=== PATIENT | female | born 1955 | race Caucasian/White ===

== ENCOUNTER 2019-10-16 11:25 | Outpatient (CLI) | payer MEDICARE, SELFPAY ==
[2019-10-16 11:51] LABS: Basophils % 0.6 %; Eosinophils % 0.6 %; Hematocrit 32.2 % (37.0-47.0); Hemoglobin 10.2 g/dL (11.5-15.3); Lymphocytes # 1.1 10^3/uL (0.8-4.8); Lymphocytes % 20.7 %; Mean Corpuscular HGB Conc 31.7 g/dL (30.0-36.0); Mean Corpuscular Hemoglobin 26.9 pg (28.0-34.0); Mean Platelet Volume 10.7 fL (7.4-10.4); Monocytes # 0.3 10^3/uL (0.2-0.9); Monocytes % 6.3 %; Neutrophils # 3.8 10^3/uL (1.8-7.7); Neutrophils % 71.6 %; Nucleated Red Blood Cells % 0 %; Platelet Count 360 10^3/cmm (130-400); Red Blood Count 3.79 10^6/uL (4.1-5.3); Red Cell Distribution Width 15.6 % (12.1-15.1); White Blood Count 5.2 10^3/uL (4.0-10.0)
[2019-10-16 12:13] LABS: Carcinoembryonic Antigen 2.7 ng/mL (0.0-4.7)
[2019-10-16 12:24] LABS: Alanine Aminotransferase 9 U/L (0-33); Albumin Level 4.5 g/dL (3.5-5.2); Alkaline Phosphatase 72 IU/L (35-105); Anion Gap 22.8 (5-19); Aspartate Amino Transferase 16 U/L (0-32); Blood Urea Nitrogen 9 mg/dL (8-23); Calcium 9.7 mg/Dl (8.8-10.2); Carbon Dioxide 20 mmol/L (22-29); Chloride 96 mmol/L (98-107); Glomerular Filtration Rate 123.8 mL/min (90-130); Glucose 109 mg/dL (74-106); Potassium 3.8 mmol/L (3.5-5.1); Sodium 135 mmol/L (136-145); Total Bilirubin 0.3 mg/dL (0.15-1.2); Total Protein 7.5 g/dL (6.6-8.7)
--- NOTE | 2019-10-16 14:17 | ONC FU_ITS ---
Dr. Bingham follow up note Patient: Conchis Vickers Unit #: [id number]: 1955 Dicatated By: Sri Bingham M.D.Date of Visit:Oct 16, 2019 Onc Med Follow-up/Prog Note History of Present Illness: Mrs. Conchis Francis, is a 64-year-old female who underwent EGD colonoscopy on 06/03/2019 for anemia and occult blood seen stools. EGD was normal but colonoscopy showed mass involving one third of the circumference of ileocecal valve and biopsy was obtained it showed adenocarcinoma and CT scan of abdomen pelvis was done on 06/09/2019 which showed cecum appears distended no hepatic lesion seen no mesenteric or pelvic lymphadenopathy. Patient underwent right hemicolectomy and it showed adenocarcinoma, low-grade, 4.2 x 2.6 x 1.1 cm mass focally penetrating muscularis propria into serosal connective tissues. Margins were clear, T3, 0 out of 16 lymph nodes positive for metastatic disease. No lymphovascular or venous involvement. MSI MMR status was intact. Patient tolerated procedure well. Now recovering well. On oral iron one tablet every other day since June 2019. Tolerating well.Patient stopped taking oral iron in August 2019, as she was feeling better. Came for follow-up, denies any specific complaints, no melena or hematochezia, no nausea or vomiting, no jaundice, no hemoptysis or hematemesis, no shortness of breath or palpitation, ] Medications: Levothyroxine Sodium 1.5 Tablet (of 25 mcg) Oral daily, Prevacid 1 Capsule (of 15 mg) Capsule Delayed Release Oral daily, Telmisartan 0.5 Tablet (of 40 mg) Oral daily, traZODone HCl 1 Tablet (of 100 mg) Oral at bedtime Allergies: No Known Allergies. Review of Systems: Review of Systems is not available for this patient. Vital Signs: Performed on Oct 16, 2019 13:48 Height - 70.50 in Weight - 167.2 lbs (HIGH) BSA - 1.94 sq.m BMI - 23.65 Temperature - 98.4 F Pulse - 90 /min Respiration - 18 /min BP - 124/78 mm(hg) O2 Sat - 98 % Pain - 0 Performance Status: 0 - Fully active, able to carry on all predisease activities without restrictions. (ECOG) Physical Examination: ENMT - No oral exudates, ulcers, masses, thrush or mucositis. Oropharynx clear. Tongue normal, Respiratory - Lungs are clear to auscultation without rhonchi or wheezing, Cardiovascular - Regular rate and rhythm of heart, Abdomen - Non-tender, non-distended,Good bowel sounds. No guarding or rebound tenderness. No pulsatile masses, Extremities - no edema. Lab/Imaging: Test performed on Oct 16, 2019 11:36 Glucose 109 mg/dL BUN 9 mg/dL Creatinine 0.5 mg/dL Cr Clearance (Est) 134.3000 mL/min (Preliminary) Sodium 135 mmol/L Potassium 3.8 mmol/L Chloride 96 mmol/L CO2 20 mmol/L Calcium 9.7 mg/dL Protein, Total 7.5 g/dL Albumin 4.5 g/dL Globulin 3.0 g/dL Bilirubin, Total 0.3 mg/dL Alkaline Phosphatase 72 IU/L AST (SGOT) 16 IU/L ALT (SGPT) 9 IU/L WBC 5.2 10^9/L RBC 3.79 10^12/L HGB 10.2 g/dL HCT 32.2 % MCV 85.0 fl MCH 26.9 pg MCHC 31.7 g/dL RDW 15.6 % Platelet Count 360 10^9/L MPV 10.7 fL Neutrophils (Gran) 3.8 10^9/L Lymphocytes 1.1 10^9/L Monocytes 0.3 10^9/L Eosinophils 0.0 10^9/L Basophils 0.0 10^9/L Manual Lymphocytes 20.7 % Manual Monocytes 6.3 % Manual Eosinophils 0.6 % Manual Basophils 0.6 % NRBCs 0.0 /100 WBC CEA 2.7 ng/mL Test performed on Jul 25, 2019 09:24 Ferritin 14.0 ng/ml Iron 32 ug/dL % Iron Saturation 9.9 % UIBC 291 ug/dL Neutrophil % 64.7 % Lymphocyte % 27.0 % Monocyte % 6.5 % Eosinophil % 1.2 % Basophils % 0.6 % 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 done on 06/16/2019 final pathology report showed 4.2 x 2.6 x 1.1 cm tumor penetrating muscularis propria into serosal connective tissues, with clear surgical margins, T3 0 out of 16 lymph nodes positive for metastatic disease, N0 No lymphovascular or venous invasion seen MMR/MSI intact Iron deficiency anemia tried oral iron Plan: Discussed with patient regarding her labs white blood count 5.2 hemoglobin 10.2 crit 32.2 platelets 360,000 CMP within normal limits CEA 2.7, anemia workup done on our previous visit showed iron was 9.9 ferritin was 14 TIBC was 291 Clinically, patient is doing well, no new signs symptoms suggestive of recurrence of disease. Her follow-up CBC shows persistent rather progressive anemia but well compensated as patient has no shortness of breath or palpitation on exertion. Patient was on oral iron earlier but then quit taking in August 2019 on her own as she started feeling better that time. Because of her progressive anemia and history of iron deficiency anemia patient was advised start taking oral iron again and will repeat her CBC and iron studies in a month if it shows improvement, will continue with same otherwise we'll try parenteral iron as she will have iron malabsorption as oral iron did not improve her hemoglobin. Signed By: Sri Bingham M.D. <<Signature on File>>
== END 2019-10-16 11:26 | disposition home or self-care (01) ==
LOC: ONCMED 11:30
PROVIDERS: Family Provider Internal Medicine; PCP Internal Medicine; Visit Provider Internal Medicine Hematology & Oncology
DX: Z08 Encounter for follow-up examination after completed treatment for malignant neoplasm (principal); Z85.038 Personal history of other malignant neoplasm of large intestine; D50.9 Iron deficiency anemia, unspecified; Z79.899 Other long term (current) drug therapy; Z79.891 Long term (current) use of opiate analgesic; Z90.49 Acquired absence of other specified parts of digestive tract
CPT/HCPCS: 36415; 80053; 82378; 85025; G0463

== ENCOUNTER 2019-11-20 21:44 | Emergency (ER) | payer MEDICARE, SELFPAY ==
[2019-11-20 22:14] VITALS: BP 163/91; PULSE 85; RESP 18; O2SAT 100; BMI 23.6
--- NOTE | 2019-11-20 22:26 | W.ED.DIZZY ---
HPI - Dizziness General: Chief Complaint: Dizziness Stated Complaint: FEELING WOOZY Time Seen by Provider: 11/20/19 22:26 Source: patient Mode of arrival: ambulatory Limitations: no limitations History of Present Illness: HPI Narrative: Patient comes in today with 2-day history of feeling woozy. Patient appears well. Patient appears in no pain. Patient denies any chest pain or headache. Associated neuro symptoms: Reports confusion Review of Systems General: Reports: 10 or more systems reviewed and unremarkable except in HPI and below Neuro: Reports: confusion PFSH ED PFSH: Social History Smoking and tobacco status: never smoked Physical Exam Const: COMMON NORMALS: no apparent distress and oriented x3 GENERAL APPEARANCE: cooperative HENMT: COMMON NORMALS: normocephalic, external ears normal, EAC's normal, TM's normal bilaterally and external nose normal HEAD & SCALP: normal to inspection and normocephalic FACE & SINUS: normal facial exam NOSE: external nose normal GENERAL EAR: hearing not grossly impaired EXTERNAL EAR: Yes external ears normal EXTERNAL AUDITORY CANAL: EAC's normal TYMPANIC MEMBRANE: TM's normal bilaterally MOUTH: oral and palatal mucosa normal THROAT: posterior oropharynx normal Eye: COMMON NORMALS: PERRL and EOMs intact bilaterally PUPIL: Yes PERRL Neck/C-Spine: COMMON NORMALS: full ROM and no lymphadenopathy Lymph: LYMPHATIC: no lymphedema noted Chest: COMMONS NORMALS: inspection of chest normal and palpation of chest normal Resp: COMMON NORMALS: normal respiratory effort and clear to auscultation bilaterally AUSCULTATION: clear to auscultation bilaterally Cardio: COMMON NORMALS: regular rate and regular rhythm RATE: regular rate RHYTHM: regular rhythm GI: COMMON NORMALS: normal to inspection, nondistended, normoactive bowel sounds and non-tender : COMMON NORMALS: Yes no CVA tenderness BLADDER/KIDNEY EXAM: Yes no CVA tenderness Back/Pelvis: COMMON NORMALS: no CVA tenderness and thoracic and lumbar spine normal to inspection Extremity: COMMON NORMALS: normal to inspection GENERAL: No edema Neuro: COMMON NORMALS: oriented x3, moves all extremities and no focal motor deficits Psych: COMMON NORMALS: mental status grossly normal and cooperative Skin: COMMON NORMALS: no rashes or lesions noted GENERAL SKIN EXAM: no rashes or lesions noted Course Vital Signs: Vital signs: Vital Signs Pulse Rate 85 11/20/19 22:14 Respiratory Rate 18 11/20/19 22:14 Blood Pressure 163/91 11/20/19 22:14 Pulse Oximetry 100 11/20/19 22:14 MDM - Dizziness MDM Narrative: Medical decision making narrative: Patient comes in today with complaints of lightheadedness. On exam patient has no focal neural deficits. Skin is warm and dry color is pink. Respirations are even lungs are clear to auscultation. Abdomen soft nontender. Differential diagnosis includes electrolyte disturbance, arrhythmia, ACS, urinary tract infection, anemia. Laboratory values noted a stable anemia at 10 and 31, sodium was 126 which was down from 133 1 month ago. EKG was normal sinus rhythm. Reviewed exam with patient recommended treatment for hyponatremia. Review of medical record noted that patient was on trazodone, telmisartan, and levothyroxine. Patient denied any alcohol use. Review of adverse reactions trazodone is implicated with hyponatremia and SIADH. Recommend patient stop trazodone. Patient was given 1 L of IV fluid. Reviewed with Dr. Finley who agreed with plan and need for follow-up next week with primary care for repeat evaluation of sodium. Reviewed with patient for return to the ER for worsening symptoms. Patient reported understanding agreed to plan. Patient did request medication to help her sleep although she was wary on other medications to use. We will try 50 mg of temazepam for her sleeplessness with following up with primary care for other options to assist with her insomnia. Lab Data: Labs: Lab Results 11/20/19 11/20/19 Range/Units 22:30 22:30 WBC 5.0 (4.0-10.0) 10^3/ uL RBC 3.72 L (4.1-5.3) 10^6/u L Hgb 10.2 L (11.5-15.3) g/dL Hct 31.3 L (37.0-47.0) % MCV 84.1 (81-99) fL MCH 27.4 L (28.0-34.0) pg MCHC 32.6 (30.0-36.0) g/dL RDW 16.7 H (12.1-15.1) % Plt Count 316 (130-400) 10^3/c mm MPV 10.4 (7.4-10.4) fL Neut % (Auto) 64.2 % Lymph % (Auto) 25.4 % [place] % (Auto) 7.4 % Eos % (Auto) 2.0 % Baso % (Auto) 0.6 % Neut # (Auto) 3.2 (1.8-7.7) 10^3/u L Lymph # (Auto) 1.3 (0.8-4.8) 10^3/u L [place] # (Auto) 0.4 (0.2-0.9) 10^3/u L Eos # (Auto) 0.1 (0.0-0.8) 10^3/u L Baso # (Auto) 0.0 (0.0-0.1) 10^3/u L Nucleated RBC % (a uto) 0 % Nucleated RBCs # 0.0 /100WBC Sodium 126 L (136-145) mmol/L Potassium 3.5 (3.5-5.1) mmol/L Chloride 88 L (98-107) mmol/L Carbon Dioxide 22 (22-29) mmol/L Anion Gap 19.5 H (5-19) BUN 16 (8-23) mg/dL Creatinine 0.6 (0.5-0.9) mg/dL GFR Calculation 100.3 (90-130) mL/min Glucose 104 (65-115) mg/dL Calcium 9.8 (8.5-10.5) mg/dL Total Bilirubin 0.2 (0.15-1.2) mg/dL AST 15 (0-32) U/L ALT 9 (0-33) U/L Alkaline Phosphata se 66 (35-105) IU/L Total Protein 7.5 (6.6-8.7) g/dL Albumin 4.0 (3.5-5.2) g/dL Globulin 3.5 (1.3-4.6) g/dL Discharge Plan Discharge Patient Disposition: Home, Self-Care Clinical Impression: Hyponatremia Condition: Stable Prescriptions: New temazepam 15 mg capsule 15 mg PO ONCE PRN (Reason: sleep) Qty: 7 RF: 0 No Action Unable to Assess RF: 0 Discharge Orders: Discharge Order (Routine); Ordered 11/21/19 Ordered By: Carlos Clemons Referrals: MELCHOR MCCORD DO [Primary Care Provider] - Discharge Diet: Usual diet Discharge Activity: Resume usual activity Patient Instructions: Hyponatremia (ED) Activity Restrictions/Additional Instructions: Limit all fluid intake to 2 liters a day Stop trazadone Medications as directed For sleep Follow-up with primary care for further treatment and other options for sleep Return to ER for worsening symptoms or new concerns Coding Level of Care Code ED Front Office Administrator for Juni Fwbecka Exam Comprehensive
--- NOTE | 2019-11-20 22:27 | ECG_ITS ---
Measurements Intervals [place] Rate: 77 P: 52 WV: 176 QRS: 77 QRSD: 96 T: 46 QT: 398 QTc: 452 SINUS RHYTHM Compared to ECG 05/21/2019 18:34:22 ST (T wave) deviation no longer present Electronically Signed On 11-21-2019 14:13:05 CLAIMS SERVICE ADJUSTOR by Terrance Moyer M.D. [id number]
[2019-11-20 22:45] LABS: Basophils % 0.6 %; Eosinophils # 0.1 10^3/uL (0.0-0.8); Hematocrit 31.3 % (37.0-47.0); Hemoglobin 10.2 g/dL (11.5-15.3); Lymphocytes # 1.3 10^3/uL (0.8-4.8); Lymphocytes % 25.4 %; Mean Corpuscular HGB Conc 32.6 g/dL (30.0-36.0); Mean Corpuscular Hemoglobin 27.4 pg (28.0-34.0); Mean Corpuscular Volume 84.1 fL (81-99); Mean Platelet Volume 10.4 fL (7.4-10.4); Monocytes # 0.4 10^3/uL (0.2-0.9); Monocytes % 7.4 %; Neutrophils # 3.2 10^3/uL (1.8-7.7); Neutrophils % 64.2 %; Nucleated Red Blood Cells % 0 %; Platelet Count 316 10^3/cmm (130-400); Red Blood Count 3.72 10^6/uL (4.1-5.3); Red Cell Distribution Width 16.7 % (12.1-15.1)
[2019-11-20 22:58] LABS: Alanine Aminotransferase 9 U/L (0-33); Alkaline Phosphatase 66 IU/L (35-105); Anion Gap 19.5 (5-19); Aspartate Amino Transferase 15 U/L (0-32); Blood Urea Nitrogen 16 mg/dL (8-23); Calcium 9.8 mg/dL (8.5-10.5); Carbon Dioxide 22 mmol/L (22-29); Chloride 88 mmol/L (98-107); Globulin 3.5 g/dL (1.3-4.6); Glomerular Filtration Rate 100.3 mL/min (90-130); Glucose 104 mg/dL (65-115); Potassium 3.5 mmol/L (3.5-5.1); Sodium 126 mmol/L (136-145); Total Bilirubin 0.2 mg/dL (0.15-1.2); Total Protein 7.5 g/dL (6.6-8.7)
[2019-11-20] MEDS: sodium chloride 0.9% 1,000 ML 999 ML IV (23:36)
[2019-11-21 00:40] VITALS: BP 153/87; PULSE 79; RESP 16; O2SAT 100
== END 2019-11-21 00:49 | disposition home or self-care (01) ==
PROVIDERS: Emergency Provider Nurse Practitioner Family; Family Provider Internal Medicine; PCP Internal Medicine
DX: E87.1 Hypo-osmolality and hyponatremia (principal)
CPT/HCPCS: 80053; 85025; 93005; 96360; 99282; 99283; J7030

== ENCOUNTER 2019-12-02 11:13 | Outpatient (CLI) | payer MEDICARE, SELFPAY ==
[2019-12-02 11:36] LABS: Basophils % 0.7 %; Eosinophils % 0.7 %; Hematocrit 35.8 % (37.0-47.0); Hemoglobin 11.2 g/dL (11.5-15.3); Lymphocytes # 1.4 10^3/uL (0.8-4.8); Mean Corpuscular HGB Conc 31.3 g/dL (30.0-36.0); Mean Corpuscular Hemoglobin 27.7 pg (28.0-34.0); Mean Corpuscular Volume 88.6 fL (81-99); Mean Platelet Volume 10.9 fL (7.4-10.4); Monocytes # 0.3 10^3/uL (0.2-0.9); Monocytes % 5.8 %; Neutrophils # 3.9 10^3/uL (1.8-7.7); Neutrophils % 68.6 %; Nucleated Red Blood Cells % 0 %; Platelet Count 351 10^3/cmm (130-400); Red Blood Count 4.04 10^6/uL (4.1-5.3); Red Cell Distribution Width 16.8 % (12.1-15.1); White Blood Count 5.7 10^3/uL (4.0-10.0)
[2019-12-02 12:46] LABS: Ferritin 20 ng/mL (15-150); Iron 83 ug/dL (37-145); Percent Saturation 26.7 % (20-50); Total Iron Binding Capacity 310 mcg/dl; Unsaturated Iron Binding 227 ug/dL (112-347)
== END 2019-12-02 11:14 | disposition home or self-care (01) ==
LOC: ONCMED 11:13
PROVIDERS: Family Provider Internal Medicine; PCP Internal Medicine; Visit Provider Internal Medicine Hematology & Oncology
DX: C18.2 Malignant neoplasm of ascending colon (principal)
CPT/HCPCS: 82728; 83540; 83550; 85025

== ENCOUNTER 2019-12-03 09:13 | Outpatient (CLI) | payer MEDICARE, SELFPAY ==
--- NOTE | 2019-12-03 14:09 | ONC FU_ITS ---
Dr. Bingham follow up note Patient: Conchis Vickesr Unit #: [id number]: 1955 Dicatated By: Sri Bingham M.D.Date of Visit:Dec 03, 2019 Onc Med Follow-up/Prog Note History of Present Illness: Mrs. Conchis Francis, is a 64-year-old female who underwent EGD colonoscopy on 06/03/2019 for anemia and occult blood seen stools. EGD was normal but colonoscopy showed mass involving one third of the circumference of ileocecal valve and biopsy was obtained it showed adenocarcinoma and CT scan of abdomen pelvis was done on 06/09/2019 which showed cecum appears distended no hepatic lesion seen no mesenteric or pelvic lymphadenopathy. Patient underwent right hemicolectomy and it showed adenocarcinoma, low-grade, 4.2 x 2.6 x 1.1 cm mass focally penetrating muscularis propria into serosal connective tissues. Margins were clear, T3, 0 out of 16 lymph nodes positive for metastatic disease. No lymphovascular or venous involvement. MSI MMR status was intact.stage IIa, now being observed Patient tolerated procedure well. Now recovering well. On oral iron one tablet every other day since June 2019. Tolerating well.Patient stopped taking oral iron in August 2019, as she was feeling better.but he started in October 2019 Came for follow-up, denies any specific complaint except not getting enough sleep and generalized weakness and fatigue, recently went to hospital with above-mentioned symptomats was diagnosed with hyponatremia, as per patient sodium was around 126 and she was given IV fluid and advised to cut down on her free water intake. And follow-up lab showed sodium improved to 135. Patient denies any melena hematochezia, denies any jaundice, denies any abdominal pain, denies any fever or chills.tolerating oral iron reasonably well, off and on indigestion and constipation ] Medications: Levothyroxine Sodium 1.5 Tablet (of 25 mcg) Oral daily, Prevacid 1 Capsule (of 15 mg) Capsule Delayed Release Oral daily, Telmisartan 0.5 Tablet (of 40 mg) Oral daily Allergies: No Known Allergies. Review of Systems: Constitutional - Appetite is fair and weight is decreasing. No fever, chills, hot flashes, or night sweats. Energy level is poor, Pt states she fatigues easily, ENMT - No sinus congestion/drainage. No mouth sores. No sore throat or difficulty swallowing, Hematologic/Lymphatic - Positive for easy bruising, Respiratory - No shortness of breath. Positive for cough. No pleuritic pain or hemoptysis, Cardiovascular - No angina pain. No palpitations, Gastrointestinal - No nausea, no vomiting. No heartburn or acid reflux. Occasional diarrhea, no constipation, Genitourinary (F) - No dysuria or hematuria. No urinary frequency. No urgency or incontinence, Musculoskeletal - No joint or bone pain, Neurologic - No headache or dizziness. No numbness/paresthesias or other focal neurologic symptoms, Psychiatric - Positive for anxiety, depression and insomnia. Vital Signs: Performed on Dec 03, 2019 09:48 Height - 70.50 in Weight - 160.4 lbs (LOW) BSA - 1.91 sq.m BMI - 22.69 Temperature - 98.0 F (LOW) Pulse - 81 /min Respiration - 18 /min BP - 126/74 mm(hg) O2 Sat - 97 % Pain - 0 Performance Status: 0 - Fully active, able to carry on all predisease activities without restrictions. (ECOG) Physical Examination: ENMT - No oral exudates, ulcers, masses, thrush or mucositis. Oropharynx clear. Tongue normal, Respiratory - Lungs are clear to auscultation without rhonchi or wheezing, Cardiovascular - Regular rate and rhythm of heart, Abdomen - Non-tender, non-distended, Good bowel sounds. No guarding or rebound tenderness. No pulsatile masses, Extremities - no edema. Lab/Imaging: Test performed on Oct 16, 2019 11:36 Glucose 109 mg/dL BUN 9 mg/dL Creatinine 0.5 mg/dL Cr Clearance (Est) 134.3000 mL/min (Preliminary) Sodium 135 mmol/L Potassium 3.8 mmol/L Chloride 96 mmol/L CO2 20 mmol/L Calcium 9.7 mg/dL Protein, Total 7.5 g/dL Albumin 4.5 g/dL Globulin 3.0 g/dL Bilirubin, Total 0.3 mg/dL Alkaline Phosphatase 72 IU/L AST (SGOT) 16 IU/L ALT (SGPT) 9 IU/L WBC 5.2 10 3/uL RBC 3.79 10^12/L HGB 10.2 g/dL HCT 32.2 % MCV 85.0 fL MCH 26.9 pg MCHC 31.7 g/dL RDW 15.6 % Platelet Count 360 10 3/cmm MPV 10.7 fL Lymphocytes 1.1 10^9/L Neutrophils 0.0 10 3/uL Monocytes 0.3 10^9/L Eosinophils 0.0 10^9/L Basophils 0.0 10^9/L Neutrophil % 0.6 % Manual Lymphocytes 20.7 % Manual Monocytes 6.3 % Manual Eosinophils 0.6 % Manual Basophils 0.6 % NRBCs 0.0 /100 WBC CEA 2.7 ng/mL Test performed on Jul 25, 2019 09:24 Ferritin 14.0 ng/ml Iron 32 ug/dL % Iron Saturation 9.9 % UIBC 291 ug/dL Lymphocyte % 27.0 % Monocyte % 6.5 % Eosinophil % 1.2 % Basophils % 0.6 % 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 done on 06/16/2019 final pathology report showed 4.2 x 2.6 x 1.1 cm tumor penetrating muscularis propria into serosal connective tissues, with clear surgical margins, T3 0 out of 16 lymph nodes positive for metastatic disease, N0 No lymphovascular or venous invasion seen MMR/MSI intact Iron deficiency anemia tried oral iron Plan: Discussed with patient regarding her labs white blood count 5.7 hemoglobin 11.2 crit 35.8 platelets 351,000 MCV 88.6 and ferritin 20 compared to 14 on 07/25/2019, iron 83, TIBC 227, CEA 2.7 checked on 10/16/2019 Clinically, patient is doing well except with mild iron deficiency anemia, patient is taking oral iron every other day because of fear of constipation. Patient was advised to take iron supplement on daily basis and then take stool softener for constipation otherwise he will return to clinic in 3 months with CBC CMP and iron studies and CEA and a follow-up lab workup shows persistent iron deficiency anemia, she may have iron malabsorption and that case we may consider trial of parenteral iron. Signed By: Sri Bingham M.D. <<Signature on File>>
== END 2019-12-03 09:14 | disposition home or self-care (01) ==
LOC: ONCMED 09:13
PROVIDERS: Family Provider Internal Medicine; PCP Internal Medicine; Visit Provider Internal Medicine Hematology & Oncology
DX: C18.2 Malignant neoplasm of ascending colon (principal); D50.9 Iron deficiency anemia, unspecified; Z90.49 Acquired absence of other specified parts of digestive tract
CPT/HCPCS: G0463

== ENCOUNTER 2020-03-03 08:49 | Outpatient (CLI) | payer MEDICARE, SELFPAY ==
[2020-03-03 09:34] LABS: Basophils % 0.5 %; Eosinophils # 0.1 10^3/uL (0.0-0.8); Eosinophils % 1.2 %; Hematocrit 36.9 % (37.0-47.0); Hemoglobin 12.1 g/dL (11.5-15.3); Lymphocytes # 1.3 10^3/uL (0.8-4.8); Lymphocytes % 30.9 %; Mean Corpuscular HGB Conc 32.8 g/dL (30.0-36.0); Mean Corpuscular Hemoglobin 29.4 pg (28.0-34.0); Mean Corpuscular Volume 89.6 fL (81-99); Mean Platelet Volume 10.9 fL (7.4-10.4); Monocytes # 0.3 10^3/uL (0.2-0.9); Monocytes % 6.4 %; Neutrophils # 2.5 10^3/uL (1.8-7.7); Neutrophils % 60.8 %; Nucleated Red Blood Cells % 0 %; Platelet Count 287 10^3/cmm (130-400); Red Blood Count 4.12 10^6/uL (4.1-5.3); Red Cell Distribution Width 15.5 % (12.1-15.1); White Blood Count 4.1 10^3/uL (4.0-10.0)
[2020-03-03 09:54] LABS: Alanine Aminotransferase 13 U/L (0-33); Albumin Level 4.3 g/dL (3.5-5.2); Alkaline Phosphatase 64 IU/L (35-105); Anion Gap 18.9 (5-19); Aspartate Amino Transferase 16 U/L (0-32); Blood Urea Nitrogen 10 mg/dL (8-23); Calcium 10.2 mg/dL (8.5-10.5); Carbon Dioxide 25 mmol/L (22-29); Chloride 94 mmol/L (98-107); Ferritin 27 ng/mL (15-150); Globulin 3.2 g/dL (1.3-4.6); Glomerular Filtration Rate 123.8 mL/min (90-130); Glucose 104 mg/dL (65-115); Iron 57 ug/dL (37-145); Osmolality Calculated 274 mOsm/kg (285-295); Percent Saturation 20.2 % (20-50); Potassium 3.9 mmol/L (3.5-5.1); Sodium 134 mmol/L (136-145); Total Bilirubin 0.3 mg/dL (0.15-1.2); Total Iron Binding Capacity 281 mcg/dl; Total Protein 7.5 g/dL (6.6-8.7); Unsaturated Iron Binding 224 ug/dL (112-347)
== END 2020-03-03 08:50 | disposition home or self-care (01) ==
LOC: ONCMED 08:52
PROVIDERS: PCP Internal Medicine; Visit Provider Internal Medicine Hematology & Oncology
DX: C18.2 Malignant neoplasm of ascending colon (principal); D50.9 Iron deficiency anemia, unspecified
CPT/HCPCS: 80053; 82728; 83540; 83550; 85025

== ENCOUNTER 2020-03-04 13:11 | Outpatient (CLI) | payer MEDICARE, SELFPAY ==
--- NOTE | 2020-03-04 13:47 | ONC FU_ITS ---
Dr. Bingham follow up note Patient: Conchis Vickers Unit #: [id number]: 1955 Dicatated By: Sri Bingham M.D.Date of Visit:Mar 04, 2020 Onc Med Follow-up/Prog Note History of Present Illness: Mrs. Conchis Francis, is a 64-year-old female who underwent EGD colonoscopy on 06/03/2019 for anemia and occult blood seen stools. EGD was normal but colonoscopy showed mass involving one third of the circumference of ileocecal valve and biopsy was obtained it showed adenocarcinoma and CT scan of abdomen pelvis was done on 06/09/2019 which showed cecum appears distended no hepatic lesion seen no mesenteric or pelvic lymphadenopathy. Patient underwent right hemicolectomy and it showed adenocarcinoma, low-grade, 4.2 x 2.6 x 1.1 cm mass focally penetrating muscularis propria into serosal connective tissues. Margins were clear, T3, 0 out of 16 lymph nodes positive for metastatic disease. No lymphovascular or venous involvement. MSI MMR status was intact.stage IIa, now being observed Patient tolerated procedure well. Now recovering well. On oral iron one tablet every other day since June 2019. Tolerating well.Patient stopped taking oral iron in August 2019, as she was feeling better.but he starCame for follow-up, denies any specific complaints, no nausea vomiting no fever chills, no melena or hematochezia, no diarrhea but constipation with oral iron, that is why , she is somewhat noncompliant with oral iron supplement. No jaundice no abdominal pain or fullness. Patient said she had mammogram done last year and as per her PMD was unremarkable and getting a ton yearly basis. And also scheduled to see her surgeon in July 2020 for possible follow-up colonoscopy. ] Medications: Levothyroxine Sodium 1.5 Tablet (of 25 mcg) Oral daily, Prevacid 1 Capsule (of 15 mg) Capsule Delayed Release Oral daily, Telmisartan 0.5 Tablet (of 40 mg) Oral daily Allergies: No Known Allergies. Review of Systems: Constitutional - Appetite is fair and weight continues to decrease. No fever, chills, hot flashes, or night sweats. Energy level is poor, Pt states she fatigues easily, ENMT - No sinus congestion/drainage. No mouth sores. No sore throat or difficulty swallowing, Hematologic/Lymphatic - Positive for easy bruising, Respiratory - No shortness of breath. No cough. No pleuritic pain or hemoptysis, Cardiovascular - No angina pain. No palpitations, Gastrointestinal - No nausea, no vomiting. No heartburn or acid reflux. Occasional diarrhea, occasional constipation constipation, Genitourinary (F) - No dysuria or hematuria. No urinary frequency. No urgency or incontinence, Musculoskeletal - No joint or bone pain, Neurologic - No headache or dizziness. No numbness/paresthesias or other focal neurologic symptoms, Psychiatric - Positive for anxiety, depression and insomnia. Vital Signs: Performed on Mar 04, 2020 13:12 Height - 70.50 in Weight - 151.2 lbs (LOW) BSA - 1.86 sq.m BMI - 21.39 Temperature - 98.5 F Pulse - 91 /min Respiration - 20 /min BP - 132/79 mm(hg) O2 Sat - 95 % (LOW) Pain - 0 Performance Status: 0 - Fully active, able to carry on all predisease activities without restrictions. (ECOG) Physical Examination: ENMT - No oral exudates, ulcers, masses, thrush or mucositis. Oropharynx clear. Tongue normal, Respiratory - Lungs are clear, Cardiovascular - Regular rate and rhythm of heart, Abdomen - Non-tender, non-distended,. Good bowel sounds. No guarding or rebound tenderness. , Extremities - No visible edema. . Lab/Imaging: Test performed on Mar 03, 2020 09:00 Ferritin 27 ng/mL Iron 57 mcg/dL Sodium 134 mmol/L Iron Binding Capacity (TIBC) 281 mcg/dl Potassium 3.9 mmol/L % Iron Saturation 20.2 % Chloride 94 mmol/L CO2 25 mmol/L UIBC 224 mcg/dL Anion Gap 18.9 BUN 10 mg/dL Creatinine 0.5 mg/dL Cr Clearance (Est) 128.8400 mL/min eGFR 123.8 mL/min Glucose 104 mg/dL Calcium 10.2 mg/dL Protein, Total 7.5 g/dL Albumin 4.3 g/dL Globulin 3.2 g/dL Bilirubin, Total 0.3 mg/dL ALT (SGPT) 13 U/L AST (SGOT) 16 U/L Alkaline Phosphatase 64 IU/L WBC 4.1 10 3/uL RBC 4.12 10 6/uL HGB 12.1 g/dL HCT 36.9 % MCV 89.6 fL MCH 29.4 pg MCHC 32.8 g/dL RDW 15.5 % Platelet Count 287 10 3/cmm MPV 10.9 fL Neutrophils 2.5 10 3/uL Lymphocytes 1.3 10 3/uL Monocytes 0.3 10 3/uL Eosinophils 0.1 10 3/uL Basophils 0.0 10 3/uL Neutrophil % 60.8 % Lymphocyte % 30.9 % Monocyte % 6.4 % Eosinophil % 1.2 % Basophils % 0.5 % Test performed on Oct 16, 2019 11:36 Manual Lymphocytes 20.7 % Manual Monocytes 6.3 % Manual Eosinophils 0.6 % Manual Basophils 0.6 % NRBCs 0.0 /100 WBC CEA 2.7 ng/mL 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 done on 06/16/2019 final pathology report showed 4.2 x 2.6 x 1.1 cm tumor penetrating muscularis propria into serosal connective tissues, with clear surgical margins, T3 0 out of 16 lymph nodes positive for metastatic disease, N0 No lymphovascular or venous invasion seen MMR/MSI intact Iron deficiency anemia tried oral iron Plan: Discussed with patient regarding her labs white blood count 4.1 hemoglobin 12.1 g hematocrit 36.9 platelets 287,000 CMP within normal limits iron studies shows ferritin 27 iron 57 iron saturation 20.2% Clinically, patient is doing well, with no signs symptoms suggestive of recurrence of disease. Her iron deficiency anemia is improving on oral iron, although patient does somewhat noncompliant due to iron supplement related constipation. Patient was advised to continue with oral iron supplement and take stool softener for constipation. And she will return to clinic in 4 months with CBC CMP and CEA Signed By: Sri Bingham M.D. <<Signature on File>>
== END 2020-03-04 13:12 | disposition home or self-care (01) ==
LOC: ONCMED 13:13
PROVIDERS: PCP Internal Medicine; Visit Provider Internal Medicine Hematology & Oncology
DX: C18.2 Malignant neoplasm of ascending colon (principal); D50.9 Iron deficiency anemia, unspecified; I10 Essential (primary) hypertension; E03.9 Hypothyroidism, unspecified; Z86.010 Personal history of colon polyps
CPT/HCPCS: G0463

== ENCOUNTER 2020-05-04 13:20 | Outpatient (CLI) | payer MEDICARE, SELFPAY ==
--- NOTE | 2020-05-04 13:34 | MM_ITS ---
WS: [id number] BILATERAL SCREENING DIGITAL MAMMOGRAM WITH CAD HISTORY: SCREENING COMPARISON: 01/31/2019 and 01/29/2019 and 05/08/2014 Bilateral CC and MLO views submitted. Computer aided detection analyzed. Breast composition: There are scattered areas of fibroglandular density. No suspicious masses, microc alcifications or architectural distortion. MM/[id number] IMPRESSION: BI-RADS: 1-Negative FOLLOW UP: 1 Year Follow-up
== END 2020-05-04 13:21 | disposition home or self-care (01) ==
PROVIDERS: PCP Internal Medicine; Visit Provider Internal Medicine
DX: Z12.31 Encounter for screening mammogram for malignant neoplasm of breast (principal)
CPT/HCPCS: 77067

== ENCOUNTER 2020-07-01 09:56 | Outpatient (CLI) | payer MEDICARE, SELFPAY ==
[2020-07-01 10:21] LABS: Basophils % 0.7 %; Eosinophils % 0.7 %; Hematocrit 36.6 % (37.0-47.0); Lymphocytes # 1.3 10^3/uL (0.8-4.8); Lymphocytes % 28.3 %; Mean Corpuscular HGB Conc 32.8 g/dL (30.0-36.0); Mean Corpuscular Hemoglobin 30.5 pg (28.0-34.0); Mean Corpuscular Volume 92.9 fL (81-99); Mean Platelet Volume 10.7 fL (7.4-10.4); Monocytes # 0.2 10^3/uL (0.2-0.9); Neutrophils # 2.97 10^3/uL (1.8-7.7); Neutrophils % 65.1 %; Nucleated Red Blood Cells % 0 %; Platelet Count 272 10^3/cmm (130-400); Red Blood Count 3.94 10^6/uL (4.1-5.3); Red Cell Distribution Width 13.8 % (12.1-15.1); White Blood Count 4.6 10^3/uL (4.0-10.0)
[2020-07-01 10:39] LABS: Alanine Aminotransferase < 5 U/L (0-33); Albumin Level 4.2 g/dL (3.5-5.2); Alkaline Phosphatase 60 IU/L (35-105); Aspartate Amino Transferase 17 U/L (0-32); Blood Urea Nitrogen 12 mg/dL (8-23); Calcium 9.8 mg/dL (8.5-10.5); Carbon Dioxide 26 mmol/L (22-29); Chloride 100 mmol/L (98-107); Globulin 3.1 g/dL (1.3-4.6); Glomerular Filtration Rate 83.7 mL/min (90-130); Glucose 107 mg/dL (65-115); Osmolality Calculated 282 mOsm/kg (285-295); Sodium 136 mmol/L (136-145); Total Bilirubin 0.3 mg/dL (0.15-1.2); Total Protein 7.3 g/dL (6.6-8.7)
[2020-07-01 11:03] LABS: Carcinoembryonic Antigen 2.4 ng/mL (0.0-4.7)
[2020-07-01 11:14] LABS: Ferritin 32 ng/mL (15-150); Iron 66 ug/dL (37-145); Percent Saturation 22.5 % (20-50); Total Iron Binding Capacity 293 mcg/dl; Unsaturated Iron Binding 227 ug/dL (112-347)
== END 2020-07-01 09:57 | disposition home or self-care (01) ==
LOC: ONCMED 09:59
PROVIDERS: PCP Internal Medicine; Visit Provider Internal Medicine Hematology & Oncology
DX: C18.2 Malignant neoplasm of ascending colon (principal); D50.9 Iron deficiency anemia, unspecified
CPT/HCPCS: 80053; 82378; 82728; 83540; 83550; 85025

== ENCOUNTER 2020-07-05 05:42 | Outpatient (CLI) | payer MEDICARE, SELFPAY ==
--- NOTE | 2020-07-05 16:00 | ONC FU_ITS ---
Dr. Bingham follow up note Patient: Conchis Vickers Unit #: [id number]: 1955 Dicatated By: Sri Bingham M.D.Date of Visit:Jul 05, 2020 Onc Med Follow-up/Prog Note History of Present Illness: Mrs. Conchis Francis, is a 65-year-old female who underwent EGD colonoscopy on 06/03/2019 for anemia and occult blood seen stools. EGD was normal but colonoscopy showed mass involving one third of the circumference of ileocecal valve and biopsy was obtained it showed adenocarcinoma and CT scan of abdomen pelvis was done on 06/09/2019 which showed cecum appears distended no hepatic lesion seen no mesenteric or pelvic lymphadenopathy. Patient underwent right hemicolectomy and it showed adenocarcinoma, low-grade, 4.2 x 2.6 x 1.1 cm mass focally penetrating muscularis propria into serosal connective tissues. Margins were clear, T3, 0 out of 16 lymph nodes positive for metastatic disease. No lymphovascular or venous involvement. MSI MMR status was intact.stage IIa, now being observed Patient tolerated procedure well. Now recovering well. On oral iron one tablet every other day since June 2019. Tolerating well.Patient stopped taking oral iron in August 2019, as she was feeling better.but he starCame for follow-up, denies any specific complaints, no nausea vomiting no fever chills, no melena or hematochezia, no diarrhea but constipation with oral iron, that is why , she is somewhat noncompliant with oral iron supplement. No jaundice no abdominal pain or fullness. Patient said she had mammogram done last year and as per her PMD was unremarkable and getting a ton yearly basis. And also scheduled to see her surgeon in July 2020 for possible follow-up colonoscopy. Mammogram done on May 04, 2020 showed benign, Came for follow-up, denies any specific complaints, no fever chills, no nausea or vomiting, no diarrhea or constipation, no abdominal pain, no jaundice, appetite is good. Tolerating oral iron well ] Medications: Levothyroxine Sodium 1.5 Tablet (of 25 mcg) Oral daily, Prevacid 1 Capsule (of 15 mg) Capsule Delayed Release Oral daily, Telmisartan 0.5 Tablet (of 40 mg) Oral daily Allergies: No Known Allergies. Review of Systems: Review of Systems is not available for this patient. Vital Signs: Performed on Jul 05, 2020 08:35 Height - 70.50 in Weight - 151.8 lbs (HIGH) BSA - 1.87 sq.m BMI - 21.47 Temperature - 98.2 F (LOW) Pulse - 96 /min Respiration - 20 /min BP - 151/83 mm(hg) (HIGH) O2 Sat - 98 % Pain - 0 Performance Status: 0 - Fully active, able to carry on all predisease activities without restrictions. (ECOG) Physical Examination: ENMT - No mouth sores, no thrush, no jaundice, Respiratory - Lungs are clear to auscultation, Cardiovascular - Regular rate and rhythm of heart, Abdomen - Soft, bowel sounds present, Extremities - No visible edema. Lab/Imaging: Test performed on Mar 03, 2020 09:00 Ferritin 27 ng/mL Iron 57 mcg/dL Sodium 134 mmol/L Iron Binding Capacity (TIBC) 281 mcg/dl Potassium 3.9 mmol/L % Iron Saturation 20.2 % Chloride 94 mmol/L CO2 25 mmol/L UIBC 224 mcg/dL Anion Gap 18.9 BUN 10 mg/dL Creatinine 0.5 mg/dL Cr Clearance (Est) 128.8400 mL/min eGFR 123.8 mL/min Glucose 104 mg/dL Calcium 10.2 mg/dL Protein, Total 7.5 g/dL Albumin 4.3 g/dL Globulin 3.2 g/dL Bilirubin, Total 0.3 mg/dL ALT (SGPT) 13 U/L AST (SGOT) 16 U/L Alkaline Phosphatase 64 IU/L WBC 4.1 10 3/uL RBC 4.12 10 6/uL HGB 12.1 g/dL HCT 36.9 % MCV 89.6 fL MCH 29.4 pg MCHC 32.8 g/dL RDW 15.5 % Platelet Count 287 10 3/cmm MPV 10.9 fL Neutrophils 2.5 10 3/uL Lymphocytes 1.3 10 3/uL Monocytes 0.3 10 3/uL Eosinophils 0.1 10 3/uL Basophils 0.0 10 3/uL Neutrophil % 60.8 % Lymphocyte % 30.9 % Monocyte % 6.4 % Eosinophil % 1.2 % Basophils % 0.5 % 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 done on 06/16/2019 final pathology report showed 4.2 x 2.6 x 1.1 cm tumor penetrating muscularis propria into serosal connective tissues, with clear surgical margins, T3 0 out of 16 lymph nodes positive for metastatic disease, N0 No lymphovascular or venous invasion seen MMR/MSI intact Iron deficiency anemia tried oral iron Plan: Discussed with patient regarding her labs white blood count 4.6 hemoglobin 12 hematocrit 36.6 platelets 272,000 CMP within normal limits and iron studies, iron saturation 22.5% ferritin 32%, iron 66, TIBC 293, CEA 2.4 Clinically, patient is doing well with no new signs symptom suggestive of disease progression, her follow-up labs shows hemoglobin in normal range iron studies within normal range but on the lower side , tolerating oral iron well will continue same and she will return to clinic in 4 months with CBC CMP, her follow-up mammogram was also within normal range. Signed By: Sri Bingham M.D. <<Signature on File>>
== END 2020-07-05 05:43 | disposition home or self-care (01) ==
PROVIDERS: PCP Internal Medicine; Visit Provider Internal Medicine Hematology & Oncology
DX: C18.2 Malignant neoplasm of ascending colon (principal); D50.9 Iron deficiency anemia, unspecified; Z90.49 Acquired absence of other specified parts of digestive tract
CPT/HCPCS: G0463

== ENCOUNTER 2020-07-30 11:46 | Outpatient (CLI) | payer MEDICARE, SELFPAY ==
--- NOTE | 2020-07-30 13:30 | CT_ITS ---
WS: [id number] Exam: CT chest abd pel w con* Date/Time of Exam: 07/30/2020 12:01 PM Reason For Exam: history of colon cancer DLP: 1861.[address] scans at [facility] use at least one of these dose optimization techniques: automat ed exposure control; mA and/or kV adjustment per patient size (includes targeted exams where dose is matched to clinical indication); or iterative reconstruction. CT scan of the chest. The lungs are clear and fully expanded. The airway is patent. No mediastinal or hilar lymphadenopathy . The thoracic aorta is normal in caliber. The central pulmonary arteries are clear. Coronary artery calcifications. No pleural or pericardial effusion noted. Pulmonary hyperinflation. No destructive padmini ne lesions or chest wall defects. CT/CT chest abd pel w con* IMPRESSION: 1. No sign of mass, lymphadenopathy or acute finding in the chest. 2. Pulmonary hyperinflation which may indicate COPD. CT scan of the abdomen and pelvis with contrast. Compared to prior exam 9. Subcentimeter low-attenuation nodule in the posterior aspect the right hepatic lobe may be a cyst. It is stable in appearance. The liver is otherwise normal i n appearance. No calcified stones in the gallbladder. The stomach, spleen and p ancreas appear normal. The stomach is unremarkable. The abdominal aorta is norm al in caliber. Unremarkable kidneys and adrenal glands. No lymphadenopathy or f ree air. There is mild fluid distention of several small bowel loops probably r epresenting adynamic ileus. There is colonic diverticulosis but no sign of acut e diverticulitis. No sign of acute appendix. No mass or lymphadenopathy in the pelvis. Intact urinary bladder. Moderate amount retained stool in the colon. No destructive bone lesions are seen. Degenerative change and levoscoliosis of th e lumbar spine. IMPRESSION: 1. Mild small bowel ileus. 2. No mass or lymphadenopathy in the abdomen or pelvis. 3. Colonic diverticulosis. No sign of acute diverticulitis.
[2020-07-30] MEDS: iohexol 300 mg/mL 50 mL Btl PO (13:34)
[2020-07-30] MEDS: iohexol 300 mg/mL 100 mL Btl IV (13:34)
== END 2020-07-30 11:47 | disposition home or self-care (01) ==
LOC: RADWPI 11:52
PROVIDERS: PCP Internal Medicine; Visit Provider Surgery
DX: Z85.038 Personal history of other malignant neoplasm of large intestine (principal); K56.7 Ileus, unspecified; K57.90 Diverticulosis of intestine, part unspecified, without perforation or abscess without bleeding
CPT/HCPCS: 71260; 74177; Q9967

== ENCOUNTER → 2020-08-05 13:53 | Outpatient (BNVA) | payer MEDICARE, SELFPAY | PROVIDERS: PCP Internal Medicine; Visit Provider Surgery | DX: Z11.59 Encounter for screening for other viral diseases (principal) | CPT/HCPCS: 87635 ==

== ENCOUNTER 2020-08-10 09:25 | Day surgery (SDC) | payer MEDICARE, SELFPAY ==
[2020-08-05 13:17] VITALS: BMI 21.2
--- NOTE | 2020-08-10 09:46 | W.PM.OPSUD ---
Surgery/Procedure H&P Update DATE OF PROCEDURE: August 10, 2020 DATE H&P PERFORMED: 07/20/20 H&P UPDATE INFORMATION: I have reviewed H&P completed within last 30 days, I have examined patient prior to procedure and No changes to prior documentation PLANNED PROCEDURE: Operation Date: 08/10/20 10:30 Proposed Procedures p Colonoscopy 58491 z85.038(Not Applicable) - Cecil Iniguez MD
[2020-08-10 10:03] VITALS: BP 164/92; PULSE 84; RESP 18; TEMP 36.8; O2SAT 96
[2020-08-10] MEDS: sodium chloride 0.9% 1,000 ML 30 ML IV (10:08)
--- NOTE | 2020-08-10 10:23 | ANES.PREANE2 ---
Pre-Anesthetic Assessment Pre-Anesthetic Assessment: Height/Weight: Height 1.78 m Weight 67.132 kg Temp Pulse Resp BP Pulse Ox 98.2 F 84 18 164/92 96 08/10/20 10:03 08/10/20 10:03 08/10/20 10:03 08/10/20 10:03 08/10/20 10:03 Preop Diagnosis: Hx colon cancer Proposed Procedure: Operation Date: 08/10/20 10:30 Proposed Procedures p Colonoscopy 82583 z85.038(Not Applicable) - Cecil Iniguez MD Familial anesthetic complications: None Last intake: Intake Last Liquid Date 08/09/20 Last Liquid Time 23:00 Last Solid Date 08/08/20 Last Solid Time 18:00 Social: Social History: No alcohol and No tobacco Exam: Pre-Anes Outpt Exam: alert, oriented x 3, clear to auscultation bilaterally and regular rate & rhythm Airway: Cervical ROM: WNL MP: 3 Dentition: Full CV/HEM: CV/HEM: HTN GI: Comments: hx colon cancer Metabolic: Metabolic: Thyroid Anesthetic Plan: ASA status: 2 Anesthesia: General Risk of > 500 ml blood loss (7ml/kg in children): No Meds/Allergies Current Medications: Current Medications Generic Name Dose Route Start Last Admin Trade Name Freq PRN Reason Stop Dose Admin Sodium Chloride 1,000 mls @ 30 ml s/hr 08/10/20 10:00 08/10/20 10:08 Sodium Chloride 0.9% IV 08/11/20 09:59 30 mls/hr .Q24H CHARO Administration PFSH Anesthesia PFSH: Medical History (Updated 07/24/20 @ 11:16 by Cecil Iniguez MD) Colon cancer Hypertension Hypothyroidism Surgical History History of colon resection (~2019) History of colonoscopy with polypectomy (~2019) Family History Denies family history of Anesthesia complication Bleeding disorder Social History Smoking and tobacco status: never smoked Data Anesthesia Cardiac Studies: No Data to Display
[2020-08-10 10:55] VITALS: BP 117/65; PULSE 77; RESP 18; TEMP 36.9; O2SAT 100
[2020-08-10 11:04] VITALS: BP 131/71; PULSE 72; RESP 18; O2SAT 99
--- NOTE | 2020-08-10 12:02 | ANE.PACU2 ---
Inpatient post-anesthesia follow up: Airway intact: Yes Vital signs: Temperature 98.4 F Pulse Rate 72 Respiratory Rate 18 Blood Pressure 131/71 Pulse Oximetry 99 Oxygen Delivery Me thod Room Air Oxygen Flow Rate Fraction of Inspir ed Oxygen Hydration adequate: Yes Nausea and vomiting: No Pain level: 1 Mental status: Baseline
--- NOTE | 2020-08-10 17:35 | ANE.PACU2 ---
Inpatient post-anesthesia follow up: Airway intact: Yes Vital signs: Temperature 98.4 F Pulse Rate 72 Respiratory Rate 18 Blood Pressure 131/71 Pulse Oximetry 99 Oxygen Delivery Me thod Room Air Oxygen Flow Rate Fraction of Inspir ed Oxygen Hydration adequate: Yes Nausea and vomiting: No Pain level: 2 Mental status: Baseline
== END 2020-08-10 11:20 | disposition home or self-care (01) ==
PROVIDERS: PCP Internal Medicine; Visit Provider Surgery
PROC: 0DJD8ZZ Inspection of Lower Intestinal Tract, Via Natural or Artificial Opening Endoscopic (ICD-10-PCS; CPT 45378; principal; 2020-08-10 10:30)
DX: Z85.038 Personal history of other malignant neoplasm of large intestine (principal); K57.30 Diverticulosis of large intestine without perforation or abscess without bleeding; K64.8 Other hemorrhoids; I10 Essential (primary) hypertension; E03.9 Hypothyroidism, unspecified
CPT/HCPCS: 12345; 45378; J2704; J7030

== ENCOUNTER 2020-11-01 09:48 | Outpatient (CLI) | payer MEDICARE, SELFPAY ==
[2020-11-01 10:27] LABS: Basophils % 0.4 %; Eosinophils % 0.2 %; Hematocrit 38.5 % (37.0-47.0); Hemoglobin 12.8 g/dL (11.5-15.3); Lymphocytes # 1.1 10^3/uL (0.8-4.8); Lymphocytes % 23.3 %; Mean Corpuscular HGB Conc 33.2 g/dL (30.0-36.0); Mean Corpuscular Hemoglobin 30.3 pg (28.0-34.0); Monocytes # 0.4 10^3/uL (0.2-0.9); Monocytes % 8.3 %; Neutrophils # 3.16 10^3/uL (1.8-7.7); Neutrophils % 67.6 %; Nucleated Red Blood Cells % 0 %; Platelet Count 263 10^3/cmm (130-400); Red Blood Count 4.23 10^6/uL (4.1-5.3); Red Cell Distribution Width 13.9 % (12.1-15.1); White Blood Count 4.7 10^3/uL (4.0-10.0)
[2020-11-01 11:46] LABS: Alanine Aminotransferase 17 U/L (0-33); Alkaline Phosphatase 67 IU/L (35-105); Anion Gap 15.3 (5-19); Aspartate Amino Transferase 21 U/L (0-32); Blood Urea Nitrogen 9 mg/dL (8-23); Calcium 9.5 mg/dL (8.5-10.5); Carbon Dioxide 26 mmol/L (22-29); Chloride 96 mmol/L (98-107); Glomerular Filtration Rate 159.7 mL/min (90-130); Glucose 106 mg/dL (65-115); Osmolality Calculated 275 mOsm/kg (285-295); Potassium 4.3 mmol/L (3.5-5.1); Sodium 133 mmol/L (136-145); Total Bilirubin 0.5 mg/dL (0.15-1.2)
== END 2020-11-01 09:49 | disposition home or self-care (01) ==
LOC: ONCMED 09:50
PROVIDERS: PCP Internal Medicine; Visit Provider Internal Medicine Hematology & Oncology
DX: C18.9 Malignant neoplasm of colon, unspecified (principal)
CPT/HCPCS: 36415; 80053; 85025

== ENCOUNTER 2020-11-04 05:53 | Outpatient (CLI) | payer MEDICARE, SELFPAY ==
--- NOTE | 2020-11-04 14:52 | ONC FU_ITS ---
Dr. Bingham follow up note Patient: Conchis Vickers Unit #: [id number]: 1955 Dicatated By: Sri Bingham M.D.Date of Visit:Nov 04, 2020 Onc Med Follow-up/Prog Note History of Present Illness: Mrs. Conchis Francis, is a 65-year-old female who underwent EGD colonoscopy on 06/03/2019 for anemia and occult blood seen stools. EGD was normal but colonoscopy showed mass involving one third of the circumference of ileocecal valve and biopsy was obtained it showed adenocarcinoma and CT scan of abdomen pelvis was done on 06/09/2019 which showed cecum appears distended no hepatic lesion seen no mesenteric or pelvic lymphadenopathy. Patient underwent right hemicolectomy and it showed adenocarcinoma, low-grade, 4.2 x 2.6 x 1.1 cm mass focally penetrating muscularis propria into serosal connective tissues. Margins were clear, T3, 0 out of 16 lymph nodes positive for metastatic disease. No lymphovascular or venous involvement. MSI MMR status was intact.stage IIa, now being observed Patient tolerated procedure well. Now recovering well. On oral iron one tablet every other day since June 2019. Tolerating well.Patient stopped taking oral iron in August 2019, as she was feeling better.but he starCame for follow-up, denies any specific complaints, no nausea vomiting no fever chills, no melena or hematochezia, no diarrhea but constipation with oral iron, that is why , she is somewhat noncompliant with oral iron supplement. No jaundice no abdominal pain or fullness. Patient said she had mammogram done last year and as per her PMD was unremarkable and getting a ton yearly basis. And also scheduled to see her surgeon in July 2020 for possible follow-up colonoscopy. Mammogram done on May 04, 2020 showed benign, Came for follow-up, denies any specific complaints, no fever chills, no nausea or vomiting, no diarrhea constipation, no abdominal pain, no jaundice, appetite is good. l ] Medications: Levothyroxine Sodium 1.5 Tablet (of 25 mcg) Oral daily, Prevacid 1 Capsule (of 15 mg) Capsule Delayed Release Oral daily, Telmisartan 0.5 Tablet (of 40 mg) Oral daily Allergies: No Known Allergies. Review of Systems: Review of Systems is not available for this patient. Vital Signs: Performed on Nov 04, 2020 14:08 Height - 70.50 in Weight - 137.6 lbs (LOW) BSA - 1.79 sq.m BMI - 19.46 Temperature - 99.0 F (HIGH) Pulse - 97 /min Respiration - 16 /min BP - 150/84 mm(hg) (HIGH) O2 Sat - 93 % (LOW) Pain - 0 Performance Status: 0 - Fully active, able to carry on all predisease activities without restrictions. (ECOG) Physical Examination: ENMT - No mouth sores, no thrush, no jaundice, Respiratory - Lungs are clear to auscultation, Cardiovascular - Regular rate and rhythm of heart, Abdomen - Soft, bowel sounds present, Extremities - No visible edema. Lab/Imaging: Test performed on Jul 01, 2020 10:04 Ferritin 32 ng/mL Iron 66 mcg/dL Sodium 136 mmol/L Iron Binding Capacity (TIBC) 293 mcg/dl Potassium 4.0 mmol/L % Iron Saturation 22.5 % Chloride 100 mmol/L CO2 26 mmol/L UIBC 227 mcg/dL Anion Gap 14.0 BUN 12 mg/dL Creatinine 0.7 mg/dL Cr Clearance (Est) 85.93 mL/min eGFR 83.7 mL/min Glucose 107 mg/dL Osmolality - Calculated 282 mOsm/kg Calcium 9.8 mg/dL Protein, Total 7.3 g/dL Albumin 4.2 g/dL Globulin 3.1 g/dL Bilirubin, Total 0.3 mg/dL ALT (SGPT) < 5 U/L AST (SGOT) 17 U/L Alkaline Phosphatase 60 IU/L WBC 4.6 10 3/uL RBC 3.94 10 6/uL HGB 12.0 g/dL HCT 36.6 % MCV 92.9 fL MCH 30.5 pg MCHC 32.8 g/dL RDW 13.8 % Platelet Count 272 10 3/cmm MPV 10.7 fL Neutrophils 2.97 10 3/uL Lymphocytes 1.3 10 3/uL Monocytes 0.2 10 3/uL Eosinophils 0.0 10 3/uL Basophils 0.0 10 3/uL Neutrophil % 65.1 % Lymphocyte % 28.3 % Monocyte % 5.0 % Eosinophil % 0.7 % Basophils % 0.7 % NRBC % 0 % CEA 2.4 ng/mL 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 done on 06/16/2019 final pathology report showed 4.2 x 2.6 x 1.1 cm tumor penetrating muscularis propria into serosal connective tissues, with clear surgical margins, T3 0 out of 16 lymph nodes positive for metastatic disease, N0 No lymphovascular or venous invasion seen MMR/MSI intact Iron deficiency anemia tried oral iron Plan: Discussed with patient regarding her labs white blood count 4.7 hemoglobin 12.8 g compared to 12 g on July 01, 2020, hematocrit 38.5 platelets 263,000 CMP within normal limits Clinically, patient is doing well with no new signs symptom suggestive of recurrence of disease her follow-up lab work-up is within normal range,, her iron deficiency anemia is resolved with oral iron. Will continue to monitor and she will return to clinic in 4 months with CBC CMP Signed By: Sri Bingham M.D. <<Signature on File>>
== END 2020-11-04 05:54 | disposition home or self-care (01) ==
LOC: ONCMED 05:55
PROVIDERS: PCP Internal Medicine; Visit Provider Internal Medicine Hematology & Oncology
DX: D50.9 Iron deficiency anemia, unspecified (principal); C18.2 Malignant neoplasm of ascending colon
CPT/HCPCS: G0463

== ENCOUNTER 2021-03-07 11:53 | Outpatient (CLI) | payer MEDICARE, SELFPAY ==
[2021-03-07 12:40] LABS: Basophils % 0.8 %; Eosinophils % 0.8 %; Hematocrit 36.6 % (37.0-47.0); Lymphocytes # 1.4 10^3/uL (0.8-4.8); Lymphocytes % 26.8 %; Mean Corpuscular HGB Conc 32.8 g/dL (30.0-36.0); Mean Corpuscular Hemoglobin 30.4 pg (28.0-34.0); Mean Corpuscular Volume 92.7 fL (81-99); Mean Platelet Volume 10.3 fL (7.4-10.4); Monocytes # 0.3 10^3/uL (0.2-0.9); Monocytes % 6.1 %; Neutrophils # 3.42 10^3/uL (1.8-7.7); Neutrophils % 65.3 %; Nucleated Red Blood Cells % 0 %; Platelet Count 266 10^3/cmm (130-400); Red Blood Count 3.95 10^6/uL (4.1-5.3); Red Cell Distribution Width 13.6 % (12.1-15.1); White Blood Count 5.2 10^3/uL (4.0-10.0)
[2021-03-07 12:59] LABS: Alanine Aminotransferase 14 U/L (0-33); Albumin Level 4.2 g/dL (3.5-5.2); Alkaline Phosphatase 64 IU/L (35-105); Aspartate Amino Transferase 14 U/L (0-32); Blood Urea Nitrogen 14 mg/dL (8-23); Calcium 8.6 mg/dL (8.5-10.5); Carbon Dioxide 26 mmol/L (22-29); Chloride 98 mmol/L (98-107); Globulin 2.5 g/dL (1.3-4.6); Glomerular Filtration Rate 159.7 mL/min (90-130); Glucose 103 mg/dL (65-115); Osmolality Calculated 281 mOsm/kg (285-295); Sodium 135 mmol/L (136-145); Total Bilirubin 0.3 mg/dL (0.15-1.2); Total Protein 6.7 g/dL (6.6-8.7)
--- NOTE | 2021-03-07 14:54 | ONC FU_ITS ---
Dr. Bingham follow up note Patient: Conchis Vickers Unit #: [id number]: 1955 Dicatated By: Sri iBngham M.D.Date of Visit:Mar 07, 2021 Onc Med Follow-up/Prog Note History of Present Illness: Mrs. Conchis Francis, is a 65-year-old female who underwent EGD colonoscopy on 06/03/2019 for anemia and occult blood seen stools. EGD was normal but colonoscopy showed mass involving one third of the circumference of ileocecal valve and biopsy was obtained it showed adenocarcinoma and CT scan of abdomen pelvis was done on 06/09/2019 which showed cecum appears distended no hepatic lesion seen no mesenteric or pelvic lymphadenopathy. Patient underwent right hemicolectomy and it showed adenocarcinoma, low-grade, 4.2 x 2.6 x 1.1 cm mass focally penetrating muscularis propria into serosal connective tissues. Margins were clear, T3, 0 out of 16 lymph nodes positive for metastatic disease. No lymphovascular or venous involvement. MSI MMR status was intact.stage IIa, now being observed Patient tolerated procedure well. Now recovering well. On oral iron one tablet every other day since June 2019. Tolerating well.Patient stopped taking oral iron in August 2019, as she was feeling better.but he starCame for follow-up, denies any specific complaints, no nausea vomiting no fever chills, no melena or hematochezia, no diarrhea but constipation with oral iron, that is why , she is somewhat noncompliant with oral iron supplement. No jaundice no abdominal pain or fullness. Patient said she had mammogram done last year and as per her PMD was unremarkable and getting a ton yearly basis. , As per patient follow-up colonoscopy in fall 2019 was unremarkable Mammogram done on May 04, 2020 showed benign, Came for follow-up, denies any specific complaints, no fever chills, no nausea or vomiting, no diarrhea constipation, no melena no hematochezia, no hemoptysis hematemesis, no jaundice l ] Medications: Levothyroxine Sodium 1.5 Tablet (of 25 mcg) Oral daily, Prevacid 1 Capsule (of 15 mg) Capsule Delayed Release Oral daily, Telmisartan 0.5 Tablet (of 40 mg) Oral daily Allergies: No Known Allergies. Review of Systems: Review of Systems is not available for this patient. Vital Signs: Vitals are not available for this patient. Performance Status: 0 - Fully active, able to carry on all predisease activities without restrictions. (ECOG) Physical Examination: ENMT - No mouth sores, no thrush, no jaundice, Respiratory - Lungs are clear to auscultation, Cardiovascular - Regular rate and rhythm of heart, Abdomen - Soft, bowel sounds present, Extremities - No visible edema. Lab/Imaging: Test performed on Nov 01, 2020 10:10 Sodium 133 mmol/L Potassium 4.3 mmol/L Chloride 96 mmol/L CO2 26 mmol/L Anion Gap 15.3 BUN 9 mg/dL Creatinine 0.4 mg/dL Cr Clearance (Est) 136.32 mL/min eGFR 159.7 mL/min Glucose 106 mg/dL Osmolality - Calculated 275 mOsm/kg Calcium 9.5 mg/dL Protein, Total 7.0 g/dL Albumin 4.0 g/dL Globulin 3.0 g/dL Bilirubin, Total 0.5 mg/dL ALT (SGPT) 17 U/L AST (SGOT) 21 U/L Alkaline Phosphatase 67 IU/L WBC 4.7 10 3/uL RBC 4.23 10 6/uL HGB 12.8 g/dL HCT 38.5 % MCV 91.0 fL MCH 30.3 pg MCHC 33.2 g/dL RDW 13.9 % Platelet Count 263 10 3/cmm MPV 10.0 fL Neutrophils 3.16 10 3/uL Lymphocytes 1.1 10 3/uL Monocytes 0.4 10 3/uL Eosinophils 0.0 10 3/uL Basophils 0.0 10 3/uL Neutrophil % 67.6 % Lymphocyte % 23.3 % Monocyte % 8.3 % Eosinophil % 0.2 % Basophils % 0.4 % NRBC % 0 % 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 done on 06/16/2019 final pathology report showed 4.2 x 2.6 x 1.1 cm tumor penetrating muscularis propria into serosal connective tissues, with clear surgical margins, T3 0 out of 16 lymph nodes positive for metastatic disease, N0 No lymphovascular or venous invasion seen MMR/MSI intact Iron deficiency anemia tried oral iron Plan: Discussed with patient regarding her labs white blood count 5.2 hemoglobin 12 hematocrit 36.6 platelets 266,000 CMP within normal limits Clinically, patient doing well with no new signs symptoms suggestive of recurrence of disease her lab work-up was within normal range, she return to clinic in 4 months with CBC CMP CEA and follow-up CT scan of abdomen pelvis Signed By: Sri Bingham M.D. <<Signature on File>>
== END 2021-03-07 11:54 | disposition home or self-care (01) ==
LOC: ONCMED 11:54
PROVIDERS: PCP Internal Medicine; Visit Provider Internal Medicine Hematology & Oncology
DX: Z08 Encounter for follow-up examination after completed treatment for malignant neoplasm (principal); Z85.038 Personal history of other malignant neoplasm of large intestine; D50.9 Iron deficiency anemia, unspecified
CPT/HCPCS: 36415; 80053; 85025; 99214

== ENCOUNTER 2021-07-06 08:38 | Outpatient (CLI) | payer MEDICARE, SELFPAY ==
--- NOTE | 2021-07-06 08:43 | CT_ITS ---
WS: [id number] CT ABDOMEN AND PELVIS WITH CONTRAST HISTORY: COLON CANCER TECHNIQUE: Imaging performed of the abdomen and pelvis with IV contrast. Single phase imaging of the abdomen. Coronal and sagittal reformats are submitted. All CT scans at [facility] use at [address] one of these dose optimization techniques: automated exposure control; mA and/or kV adjustment per patient size (includes targeted exams where dose is matched to clinical indication); or iterative re construction. IV CONTRAST: Omnipaque 300; 95 mL IV. Oral contrast: Yes. DLP: 816.33 mGy.cm COMPARISON: 07/30/2020 and 06/09/2019 Lower thorax: Lung bases are clear. Heart is normal size. Small hiatal hernia. Liver/biliary system: Normal size liver. Stable 5 mm hypodensity in the posterior RIGHT lobe. Normal portal vein. Gallbladder: Mildly contracted gallbladder. Pancreas: Normal size pancreas and pancreatic duct. No adjacent inflammation. Spleen: Normal size spleen. No mass or infarct. Adrenal glands: Normal. Right kidney: Normal. Left kidney: Normal. Aorta: Mild atherosclerosis with no aneurysm. LEFT renal vein is retroaortic. Lymphadenopathy: None. Free fluid: None. GI tract: RIGHT colonic anastomotic sutures are identified. There is mild fecal retention but no obst ruction at this location. No recurrent mass or adjacent adenopathy. There is diffuse mild constipatio n and fecal retention. Several diverticula in the distal colon. Abdominal wall: Unremarkable abdominal wall. No hernia. Pelvis: No free fluid or adenopathy within the pelvis. Bones: LEFT curvature lumbar spine. No osteoblastic or osteolytic lesions. Moderate degenerative disc disease at L4-5. CT/CT abdomen pelvis w con* [id number] IMPRESSION: 1. No evidence for metastatic disease to the abdomen or pelvis. 2. Ascending colonic anastomosis is intact with no recurrent mass or adenopath y. 3. Mild diffuse constipation. 4. Mildly contracted gallbladder may be due to a nonfasting state.
[2021-07-06 09:32] LABS: Blood Urea Nitrogen 11 mg/dL (8-23); Glomerular Filtration Rate 99.7 mL/min (90-130)
[2021-07-06] MEDS: iohexol 300 mg/mL 100 mL Btl IV (10:15)
[2021-07-06] MEDS: iohexol 300 mg/mL 50 mL Btl PO (10:15)
== END 2021-07-06 08:39 | disposition home or self-care (01) ==
LOC: CT 08:39
PROVIDERS: PCP Internal Medicine; Visit Provider Internal Medicine Hematology & Oncology
DX: C18.2 Malignant neoplasm of ascending colon (principal); K59.00 Constipation, unspecified; K63.89 Other specified diseases of intestine
CPT/HCPCS: 74177; 82565; 84520

== ENCOUNTER 2021-07-11 09:47 | Outpatient (CLI) | payer MEDICARE, SELFPAY ==
[2021-07-11 10:31] LABS: Basophils % 0.7 %; Eosinophils % 0.9 %; Hemoglobin 12.8 g/dL (11.5-15.3); Lymphocytes # 1.4 10^3/uL (0.8-4.8); Lymphocytes % 31.5 %; Mean Corpuscular HGB Conc 33.7 g/dL (30.0-36.0); Mean Corpuscular Hemoglobin 30.8 pg (28.0-34.0); Mean Corpuscular Volume 91.6 fl (81-99); Mean Platelet Volume 10.2 fL (7.4-10.4); Monocytes # 0.3 10^3/uL (0.2-0.9); Monocytes % 7.5 %; Neutrophils # 2.53 10^3/uL (1.8-7.7); Neutrophils % 58.9 %; Nucleated Red Blood Cells % 0 %; Platelet Count 300 10^3/cmm (130-400); Red Blood Count 4.15 10^6/uL (4.1-5.3); Red Cell Distribution Width 13.5 % (12.1-15.1); White Blood Count 4.3 10^3/uL (4.0-10.0)
[2021-07-11 11:29] LABS: Alanine Aminotransferase 18 U/L (0-33); Alkaline Phosphatase 67 IU/L (35-105); Anion Gap 16.3 (5-19); Aspartate Amino Transferase 23 U/L (0-32); Blood Urea Nitrogen 12 mg/dL (8-23); Carbon Dioxide 25 mmol/L (22-29); Carcinoembryonic Antigen 3.2 ng/mL (0.0-4.7); Chloride 94 mmol/L (98-107); Globulin 3.1 g/dL (1.3-4.6); Glomerular Filtration Rate 123.1 mL/min (90-130); Glucose 93 mg/dL (65-115); Osmolality Calculated 271 mOsm/kg (285-295); Potassium 4.3 mmol/L (3.5-5.1); Sodium 131 mmol/L (136-145); Total Bilirubin 0.4 mg/dL (0.15-1.2); Total Protein 7.1 g/dL (6.6-8.7)
== END 2021-07-11 09:48 | disposition home or self-care (01) ==
LOC: ONCMED 09:49
PROVIDERS: PCP Internal Medicine; Visit Provider Internal Medicine Hematology & Oncology
DX: C18.0 Malignant neoplasm of cecum (principal); D50.9 Iron deficiency anemia, unspecified
CPT/HCPCS: 36415; 80053; 82378; 85025

== ENCOUNTER 2021-07-14 06:35 | Outpatient (CLI) | payer MEDICARE, SELFPAY ==
--- NOTE | 2021-07-14 18:07 | ONC FU_ITS ---
Dr. Bingham follow up note Patient: Conchis Vickers Unit #: [id number]: 1955 Dicatated By: Sri Bingham M.D.Date of Visit:Jul 14, 2021 Onc Med Follow-up/Prog Note History of Present Illness: Mrs. Conchis Francis, is a 66-year-old female who underwent EGD colonoscopy on 06/03/2019 for anemia and occult blood seen stools. EGD was normal but colonoscopy showed mass involving one third of the circumference of ileocecal valve and biopsy was obtained it showed adenocarcinoma and CT scan of abdomen pelvis was done on 06/09/2019 which showed cecum appears distended no hepatic lesion seen no mesenteric or pelvic lymphadenopathy. Patient underwent right hemicolectomy and it showed adenocarcinoma, low-grade, 4.2 x 2.6 x 1.1 cm mass focally penetrating muscularis propria into serosal connective tissues. Margins were clear, T3, 0 out of 16 lymph nodes positive for metastatic disease. No lymphovascular or venous involvement. MSI MMR status was intact.stage IIa, now being observed Patient tolerated procedure well. Now recovering well. On oral iron one tablet every other day since June 2019. Tolerating well.Patient stopped taking oral iron in August 2019, as she was feeling better.but he starCame for follow-up, denies any specific complaints, no nausea vomiting no fever chills, no melena or hematochezia, no diarrhea but constipation with oral iron, that is why , she is somewhat noncompliant with oral iron supplement. No jaundice no abdominal pain or fullness. Patient said she had mammogram done last year and as per her PMD was unremarkable and getting a ton yearly basis. , As per patient follow-up colonoscopy in fall 2019 was unremarkable Mammogram done on May 04, 2020 showed benign, Follow-up CT scan of abdomen pelvis done on July 06, 2021 shows no evidence of metastatic disease to the abdominal pelvis. Ascending colon anastomosis is intact with no recurrent mass or adenopathy. Mild diffuse constipation. Came for follow-up, denies any specific complaints, no fever chills, no nausea or vomiting, no diarrhea or constipation, no melena or hematochezia, no jaundice, no abdominal pain, no new bony pains, no shortness of breath or palpitation. l ] Medications: Biotin 1 Tablet Oral daily, Ferrous Sulfate 1 Tablet (of 325 (65 fe) mg) Oral daily, Levothyroxine Sodium 1.5 Tablet (of 25 mcg) Oral daily, Probiotic Daily 1 Capsule Oral daily, Telmisartan 0.5 Tablet (of 40 mg) Oral daily, traZODone HCl 1 Tablet (of 100 mg) Oral at bedtime, Vitamin C 1 Tablet Oral daily, Zinc 1 Tablet (of 25 mg) Oral daily Allergies: No Known Allergies. Review of Systems: Review of Systems is not available for this patient. Vital Signs: Performed on Jul 14, 2021 10:12 Height - 70.50 in Weight - 133 lbs (LOW) BSA - 1.76 sq.m BMI - 18.81 Temperature - 97.6 F (LOW) Pulse - 94 /min Respiration - 18 /min BP - 136/79 mm(hg) O2 Sat - 98 % Pain - 0 Fatigue - 3 Performance Status: 0 - Fully active, able to carry on all predisease activities without restrictions. (ECOG) Physical Examination: ENMT - No mouth sores, no thrush, no jaundice, Respiratory - Lungs are clear to auscultation, Cardiovascular - Regular rate and rhythm of heart, Abdomen - Soft, bowel sounds present, Extremities - No visible edema. Lab/Imaging: Most recent lab results are not available for this patient. 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 Ascending colon anastomosis is intact with no recurrent mass or adenopathy. Mild diffuse constipation. Plan: Discussed with patient regarding her labs white blood count 4.3 hemoglobin 12.8 g hematocrit 38 platelets 300,000 CMP within normal limit except sodium 131 and CEA 3.7, follow-up CT scan of abdomen pelvis shows no evidence of recurrence of disease Clinically, patient doing well with no new signs symptoms just of recurrence of disease her follow-up lab work-up is within normal range and follow-up CT scan of abdomen pelvis shows no evidence of recurrence of disease either. We will continue to monitor and she will return to clinic any 6 months with CBC CMP Patient was advised to be careful with excessive free water intake as her lab work-up shows mild hyponatremia. Signed By: Sri Bingham M.D. <<Signature on File>>
== END 2021-07-14 06:36 | disposition home or self-care (01) ==
LOC: ONCMED 06:35
PROVIDERS: PCP Internal Medicine; Visit Provider Internal Medicine Hematology & Oncology
DX: Z08 Encounter for follow-up examination after completed treatment for malignant neoplasm (principal); Z85.038 Personal history of other malignant neoplasm of large intestine; D50.9 Iron deficiency anemia, unspecified; E87.1 Hypo-osmolality and hyponatremia; Z79.899 Other long term (current) drug therapy
CPT/HCPCS: 99214

== ENCOUNTER 2021-10-07 22:13 | Emergency (ER) | payer MEDICARE, SELFPAY ==
[2021-10-07 22:17] VITALS: BP 125/69; PULSE 104; RESP 18; TEMP 36.3; O2SAT 96; BMI 19.5
--- NOTE | 2021-10-07 22:19 | ED_ITS ---
Documented by User: Piyush Zendejas MD 10/15/21 20:12 HPI - General Adult General: Chief complaint: Arrhythmia/Palpitations Stated complaint: ELEVATED HEART RATE Time Seen by Provider: 10/07/21 22:18 History of Present Illness: HPI narrative: Ms. Vickers is a 66-year-old lady with history of hypothyroidism, history of esophageal cancer status post completed therapy, and hypertension who presents to the emergency department due to elevated heart rate and lightheadedness. She reports being at her baseline health earlier today without significant changes or infectious symptoms. Approximately 3 hours prior to symptom onset the patient took CBD oil. She reports history of taking this for an extended period of time and at times varies her dosage. She reports perhaps much milder version of current symptoms in the past however has never had symptoms this bad. She endorses racing heart feeling and lightheadedness. There is no associated numbness, tingling, headache, or other focal symptoms associated with lightheadedness. Racing heart is nonpainful and does not sound irregular. No recent medication changes endorsed. Overall the course of symptoms has persisted. Intensity is moderate. No other specific changes in health, exacerbating, or relieving factors identified. Onset (ago): hour(s) Severity: moderate Exacerbating factors: none Associated symptoms: Reports no associated symptoms Treatments prior to arrival: none Review of Systems General: Reports: 10 or more systems reviewed and unremarkable except in HPI and below PFSH ED PFSH: Medical History Colon cancer Hypertension Hypothyroidism Surgical History History of colon resection (~2019) History of colonoscopy with polypectomy (08/10/20) Diverticulosis, repeat in 5 years Family History Denies family history of Anesthesia complication Bleeding disorder Social History Smoking and tobacco status: never smoked Physical Exam Const: COMMON NORMALS: alert GENERAL APPEARANCE: cooperative and well developed HENMT: COMMON NORMALS: normocephalic and atraumatic HEAD & SCALP: normocephalic and atraumatic THROAT: posterior oropharynx normal Eye: COMMON NORMALS: conjunctivae normal CONJUNCTIVA: Yes conjunctivae normal SCLERA: sclerae normal Neck/C-Spine: COMMON NORMALS: supple GENERAL: Yes trachea midline Resp: COMMON NORMALS: normal respiratory effort EFFORT & INSPECTION: Yes able to speak in complete sentences Cardio: COMMON NORMALS: regular rate and regular rhythm RATE: regular rate RHYTHM: regular rhythm GI: COMMON NORMALS: Soft to palpation PALPATION: Yes Soft to palpation and No Tenderness to palpation present (GI) PERCUSSION: normal to percussion Extremity: GENERAL: Yes normal exam except as noted and No edema Neuro: COMMON NORMALS: CN's II-XII intact bilaterally, moves all extremities, no focal motor deficits and no sensory deficits noted SENSORIUM/ORIENTATION: Yes alert, No Orientation impaired and Yes somnolent Psych: OTHER: Mildly impaired cognition and memory. Course ED course: - Patient was seen and evaluated by me at bedside - Patient placed on cardiac monitors, IV access obtained - Initial evaluation notable for somewhat intoxicated appearing, mental status is somewhat altered -Fluids ordered, symptom treatment ordered - Labs notable for no leukocytosis, normal hemoglobin. Metabolic panel with mild evidence of dehydration, IV fluids given - Imaging notable for negative chest x-ray. CT head pending. -Patient care handed off to overnight ED physician Dr. Martin pending completion of ED evaluation and reassessment for return to normal. Note: Click bubbles or prepopulated vela in note writing are used for assistance with data collection and billing and are inherently more limited than narrative and other text portions of this note. Please use narrative for additional clinical history and defer to narrative/free test for any case of contradictory information. If information appears in only free text or click bubble it should be considered present or absent as reported. Please contact note telegraphic typewriter operator chief for clarifications of clinical information or contradictory information. MDM is a brief summary, contradictory or erroneous seeming information should be clarified and full note should be referred to in cases of contradiction or lack of clarity. Vital Signs: Vital signs: Vital Signs Temperature 97.4 F L 10/07/21 22:17 Pulse Rate 74 10/08/21 05:03 Respiratory Rate 14 10/08/21 05:03 Blood Pressure 126/68 10/08/21 05:03 Pulse Oximetry 97 10/08/21 05:03 MDM - General Adult Medical Records: Attestation: I reviewed the patient's medical records. Lab Data: Attestation: I reviewed the patient's lab results. Labs: Lab Results 10/07/21 10/07/21 10/07/21 22:05 22:05 22:05 WBC 5.6 10^3/uL 10^3/ uL (4.0-10.0) RBC 4.68 10^6/uL 10^6 /uL (4.1-5.3) Hgb 14.4 g/dL g/dL (11.5-15.3) Hct 43.1 % % (37.0-47.0) MCV 92.1 fl fl (81-99) MCH 30.8 pg pg (28.0-34.0) MCHC 33.4 g/dL g/dL (30.0-36.0) RDW 13.9 % % (12.1-15.1) Plt Count 320 10^3/cmm 10^3 /cmm (130-400) MPV 10.7 fL H fL (7.4-10.4) Neut % (Auto) 44.9 % % Lymph % (Auto) 47.2 % % [facility] % (Auto) 6.4 % % Eos % (Auto) 1.1 % % Baso % (Auto) 0.4 % % Neut # (Auto) 2.53 10^3/uL 10^3 /uL (1.8-7.7) Lymph # (Auto) 2.7 10^3/uL 10^3/ uL (0.8-4.8) [facility] # (Auto) 0.4 10^3/uL 10^3/ uL (0.2-0.9) Eos # (Auto) 0.1 10^3/uL 10^3/ uL (0.0-0.8) Baso # (Auto) 0.0 10^3/uL 10^3/ uL (0.0-0.1) Nucleated RBC % (a uto) 0 % % Nucleated RBCs # 0.0 /100WBC /100W BC Sodium 135 mmol/L L mmol /L (136-145) Potassium 3.7 mmol/L mmol/L (3.5-5.1) Chloride 95 mmol/L L mmol/ L (98-107) Carbon Dioxide 25 mmol/L mmol/L (22-29) Anion Gap 18.7 (5-19) BUN 16 mg/dL mg/dL (8-23) Creatinine 0.6 mg/dL mg/dL (0.5-0.9) GFR Calculation 99.7 mL/min mL/mi n (90-130) Glucose 109 mg/dL mg/dL (65-115) Calculated Osmolal ity 282 mOsm/kg L mOs m/kg (285-295) Lactic Acid Calcium 9.4 mg/dL mg/dL (8.5-10.5) Magnesium 2.3 mg/dL mg/dL (1.7-2.3) Total Bilirubin 0.4 mg/dL mg/dL (0.15-1.2) AST 18 U/L U/L (0-32) ALT 15 U/L U/L (0-33) Alkaline Phosphata se 73 IU/L IU/L (35-105) Troponin T Baselin e 6 ng/L ng/L (0-10) Troponin T 120 Min [place] Troponin T Troponin T Hi Sens 6Hr Troponin T Hi Sens 6Hr Delta Total Protein 7.7 g/dL g/dL (6.6-8.7) Albumin 4.8 g/dL g/dL (3.5-5.2) Globulin 2.9 g/dL g/dL (1.3-4.6) TSH 3.50 uIU/mL uIU/m L (0.27-4.20) Urine Color Urine Appearance Urine pH Ur Specific Gravit y Urine Protein Urine Glucose (UA) Urine Ketones Urine Blood Urine Nitrate Urine Bilirubin Urine Urobilinogen Ur Leukocyte Imani ase Urine RBC Urine WBC Ur Squamous Epith Cells Amorphous Sediment Urine Bacteria Salicylates Urine Opiates Scre en Acetaminophen Ur Barbiturates Sc reen Ur Phencyclidine S crn Ur Amphetamines Sc reen U Benzodiazepines Scrn Urine Cocaine Scre en U Marijuana (THC) Screen Ethyl Alcohol 10/07/21 10/07/21 10/08/21 22:05 22:53 00:10 WBC RBC Hgb Hct MCV MCH MCHC RDW Plt Count MPV Neut % (Auto) Lymph % (Auto) [facility] [place] [facility] % (Auto) Eos % (Auto) Baso % (Auto) Neut # (Auto) Lymph # (Auto) [facility] # (Auto) Eos # (Auto) Baso # (Auto) Nucleated RBC % (a uto) Nucleated RBCs # Sodium Potassium Chloride Carbon Dioxide Anion Gap BUN Creatinine GFR Calculation Glucose Calculated Osmolal ity Lactic Acid 0.9 mmol/L mmol/L (0.5-2.2) Calcium Magnesium Total Bilirubin AST ALT Alkaline Phosphata se Troponin T Baselin e Troponin T 120 Min [place] Troponin T Troponin T Hi Sens 6Hr Troponin T Hi Sens 6Hr Delta Total Protein Albumin Globulin TSH Urine Color Yellow (Yellow) Urine Appearance Sl hazy (CLEAR) Urine pH 7 (5-7) Ur Specific Gravit y 1.010 (1.005-1.030) Urine Protein Neg (Negative) Urine Glucose (UA) Norm (Normal) Urine Ketones 1+ H (Negative) Urine Blood Neg (Negative) Urine Nitrate Positive H (Negative) Urine Bilirubin Neg (Negative) Urine Urobilinogen Norm mg/dL mg/dL (Negative) Ur Leukocyte Imani ase Trace H (Negative) Urine RBC 0-4 /hpf H /hpf (0-2) Urine WBC 25-40 /hpf H /hpf (0-5) Ur Squamous Epith Cells 0-4 /hpf H /hpf (0-5) Amorphous Sediment Not Reportable Urine Bacteria 4+ /hpf H /hpf (NONE) Salicylates < 0.3 mg/dL L mg/ dL (3-10) Urine Opiates Scre en Acetaminophen < 5.0 ug/mL L ug/ mL (10-30) Ur Barbiturates Sc reen Ur Phencyclidine S crn Ur Amphetamines Sc reen U Benzodiazepines Scrn Urine Cocaine Scre en U Marijuana (THC) Screen Ethyl Alcohol < 10 mg/dL mg/dL (0-10) 10/08/21 10/08/21 10/08/21 00:10 00:20 04:02 WBC RBC Hgb Hct MCV MCH MCHC RDW Plt Count MPV Neut % (Auto) Lymph % (Auto) [facility] % (Auto) Eos % (Auto) Baso % (Auto) Neut # (Auto) Lymph # (Auto) [facility] # (Auto) Eos # (Auto) Baso # (Auto) Nucleated RBC % (a uto) Nucleated RBCs # Sodium Potassium Chloride Carbon Dioxide Anion Gap BUN Creatinine GFR Calculation Glucose Calculated Osmolal ity Lactic Acid Calcium Magnesium Total Bilirubin AST ALT Alkaline Phosphata se Troponin T Baselin e Troponin T 120 Min [place] 13.16 ng/L H ng/L (0-10) Delta Troponin T 7.16 ABS# ABS# (0-10) Troponin T Hi Sens 6Hr 13.58 ng/L H ng/L (0-10) Troponin T Hi Sens 6Hr Delta 7.58 ng/L ng/L (0-12) Total Protein Albumin Globulin TSH Urine Color Urine Appearance Urine pH Ur Specific Gravit y Urine Protein Urine Glucose (UA) Urine Ketones Urine Blood Urine Nitrate Urine Bilirubin Urine Urobilinogen Ur Leukocyte Imani ase Urine RBC Urine WBC Ur Squamous Epith Cells Amorphous Sediment Urine Bacteria Salicylates Urine Opiates Scre en Negative ng/mL ng /mL (Negative) Acetaminophen Ur Barbiturates Sc reen Negative ng/mL ng /mL (Negative) Ur Phencyclidine S crn Negative ng/mL ng /mL (Negative) Ur Amphetamines Sc reen Negative ng/mL ng /mL (Negative) U Benzodiazepines Scrn Negative ng/mL ng /mL (Negative) Urine Cocaine Scre en Negative ng/mL ng /mL (Negative) U Marijuana (THC) Screen Positive ng/mL H ng/mL (Negative) Ethyl Alcohol EKG Data^: EKG 1: Attestation: I personally reviewed and interpreted this EKG as follows: EKG interpretation date: 10/07/21 EKG interpretation time: 22:25 Interpretation: Twelve-lead EKG showed a regular rhythm at a rate of 80. UT interval 160, QRS duration 102, QTc 461. Normal axis. Interpretation: Sinus rhythm. Computer generated interpretation: Chest X-Ray 10/07/21 22:26 IMPRESSION: Nonacute. Head CT 10/07/21 22:29 IMPRESSION: No evidence of active or acute intracranial pathologic process, hemorrhage, or trauma. Discharge Plan Discharge Patient Disposition: Home Clinical Impression: Palpitations, Light-headed feeling, Altered mental status Condition: Stable Prescriptions: No Action levothyroxine 200 mcg tablet 200 mcg PO DAILY RF: 0 telmisartan 20 mg tablet 20 mg PO DAILY RF: 0 trazodone 100 mg tablet 100 mg PO DAILY RF: 0 cholecalciferol (vitamin D3) 1,250 mcg (50,000 unit) capsule 50,000 unit PO DAILY RF: 0 Adult Probiotic 3 billion cell capsule 3,000 mmu cells PO DAILY RF: 0 propranolol 10 mg tablet 10 mg PO DAILY RF: 0 Discharge Orders: Discharge ED (Routine); Ordered 10/08/21 Ordered By: Tristan Martin Referrals: Karly Downs DO [Primary Care Provider] - 1-3 days Discharge Diet: Usual diet Discharge Activity: Resume usual activity Patient Instructions: Heart Palpitations (ED), Lightheadedness (ED), Altered Mental Status (ED) Activity Restrictions/Additional Instructions: Thank you for visiting our ER for palpitations, and lightheadedness. The exact cause of your symptoms is unclear however does not appear to need inpatient management at this time. Your symptoms may be secondary to your CBD use. Please follow-up with your primary care provider. Return to the emergency department for worsening symptoms, any focal weakness or sensory change, confusion, speech difficulty, balance problems, or anything else that you are concerned about and feel needs emergency department evaluation. Coding Level of Care Code ED Railways Assistant for Chg Fwd Exam Comprehensive Documented by User: Tristan Martin DO 10/08/21 05:34 HPI - General Adult General: Chief complaint: Arrhythmia/Palpitations Stated complaint: ELEVATED HEART RATE Time Seen by Provider: 10/07/21 22:18 [facility] ED PFSH: Medical History Colon cancer Hypertension Hypothyroidism Surgical History History of colon resection (~2019) History of colonoscopy with polypectomy (08/10/20) Diverticulosis, repeat in 5 years Family History Denies family history of Anesthesia complication Bleeding disorder Social History Smoking and tobacco status: never smoked Course Vital Signs: Vital signs: Vital Signs Temperature 97.4 F L 10/07/21 22:17 Pulse Rate 74 10/08/21 05:03 Respiratory Rate 14 10/08/21 05:03 Blood Pressure 126/68 10/08/21 05:03 Pulse Oximetry 97 10/08/21 05:03 MDM - General Adult MDM Narrative: Medical decision making narrative: 66-year-old female checked out to me by the previous physician at shift change. This lady had come in with palpitations, essentially after taking some CBD oil by her history. Her urine drug screen is positive for marijuana, which is inconsistent with CBD oil only. Her CBC is normal. Her BMP is essentially normal. Her first troponin was normal. Her second troponin was minimally elevated, with a delta of 7. This lady declined ever having had real chest pain. But, given intermediate level delta, felt safer to have her stay for a 6-hour troponin. At that point, a remain the same as the 2-hour troponin. She wished to go home. Her head CT was not remarkable. Chest x-ray was not remarkable. She was allowed home Lab Data: Labs: Lab Results 10/07/21 10/07/21 10/07/21 22:05 22:05 22:05 WBC 5.6 10^3/uL 10^3/ uL (4.0-10.0) RBC 4.68 10^6/uL 10^6 /uL (4.1-5.3) Hgb 14.4 g/dL g/dL (11.5-15.3) Hct 43.1 % % (37.0-47.0) MCV 92.1 fl fl (81-99) MCH 30.8 pg pg (28.0-34.0) MCHC 33.4 g/dL g/dL (30.0-36.0) RDW 13.9 % % (12.1-15.1) Plt Count 320 10^3/cmm 10^3 /cmm (130-400) MPV 10.7 fL H fL (7.4-10.4) Neut % (Auto) 44.9 % % Lymph % (Auto) 47.2 % % [facility] % (Auto) 6.4 % % Eos % (Auto) 1.1 % % Baso % (Auto) 0.4 % % Neut # (Auto) 2.53 10^3/uL 10^3 /uL (1.8-7.7) Lymph # (Auto) 2.7 10^3/uL 10^3/ uL (0.8-4.8) [facility] # (Auto) 0.4 10^3/uL 10^3/ uL (0.2-0.9) Eos # (Auto) 0.1 10^3/uL 10^3/ uL (0.0-0.8) Baso # (Auto) 0.0 10^3/uL 10^3/ uL (0.0-0.1) Nucleated RBC % (a uto) 0 % % Nucleated RBCs # 0.0 /100WBC /100W BC Sodium 135 mmol/L L mmol /L (136-145) Potassium 3.7 mmol/L mmol/L (3.5-5.1) Chloride 95 mmol/L L mmol/ L (98-107) Carbon Dioxide 25 mmol/L mmol/L (22-29) Anion Gap 18.7 (5-19) BUN 16 mg/dL mg/dL (8-23) Creatinine 0.6 mg/dL mg/dL (0.5-0.9) GFR Calculation 99.7 mL/min mL/mi n (90-130) Glucose 109 mg/dL mg/dL (65-115) Calculated Osmolal ity 282 mOsm/kg L mOs m/kg (285-295) Lactic Acid Calcium 9.4 mg/dL mg/dL (8.5-10.5) Magnesium 2.3 mg/dL mg/dL (1.7-2.3) Total Bilirubin 0.4 mg/dL mg/dL (0.15-1.2) AST 18 U/L U/L (0-32) ALT 15 U/L U/L (0-33) Alkaline Phosphata se 73 IU/L IU/L (35-105) Troponin T Baselin e 6 ng/L ng/L (0-10) Troponin T 120 Min [place] Troponin T Troponin T Hi Sens 6Hr Troponin T Hi Sens 6Hr Delta Total Protein 7.7 g/dL g/dL (6.6-8.7) Albumin 4.8 g/dL g/dL (3.5-5.2) Globulin 2.9 g/dL g/dL (1.3-4.6) TSH 3.50 uIU/mL uIU/m L (0.27-4.20) Urine Color Urine Appearance Urine pH Ur Specific Gravit y Urine Protein Urine Glucose (UA) Urine Ketones Urine Blood Urine Nitrate Urine Bilirubin Urine Urobilinogen Ur Leukocyte Imani ase Urine RBC Urine WBC Ur Squamous Epith Cells Amorphous Sediment Urine Bacteria Salicylates Urine Opiates Scre en Acetaminophen Ur Barbiturates Sc reen Ur Phencyclidine S crn Ur Amphetamines Sc reen U Benzodiazepines Scrn Urine Cocaine Scre en U Marijuana (THC) Screen Ethyl Alcohol 10/07/21 10/07/21 10/08/21 22:05 22:53 00:10 WBC RBC Hgb Hct MCV MCH MCHC RDW Plt Count MPV Neut % (Auto) Lymph % (Auto) [facility] [place] [facility] % (Auto) Eos % (Auto) Baso % (Auto) Neut # (Auto) Lymph # (Auto) [facility] # (Auto) Eos # (Auto) Baso # (Auto) Nucleated RBC % (a uto) Nucleated RBCs # Sodium Potassium Chloride Carbon Dioxide Anion Gap BUN Creatinine GFR Calculation Glucose Calculated Osmolal ity Lactic Acid 0.9 mmol/L mmol/L (0.5-2.2) Calcium Magnesium Total Bilirubin AST ALT Alkaline Phosphata se Troponin T Baselin e Troponin T 120 Min [place] Troponin T Troponin T Hi Sens 6Hr Troponin T Hi Sens 6Hr Delta Total Protein Albumin Globulin TSH Urine Color Yellow (Yellow) Urine Appearance Sl hazy (CLEAR) Urine pH 7 (5-7) Ur Specific Gravit y 1.010 (1.005-1.030) Urine Protein Neg (Negative) Urine Glucose (UA) Norm (Normal) Urine Ketones 1+ H (Negative) Urine Blood Neg (Negative) Urine Nitrate Positive H (Negative) Urine Bilirubin Neg (Negative) Urine Urobilinogen Norm mg/dL mg/dL (Negative) Ur Leukocyte Imani ase Trace H (Negative) Urine RBC 0-4 /hpf H /hpf (0-2) Urine WBC 25-40 /hpf H /hpf (0-5) Ur Squamous Epith Cells 0-4 /hpf H /hpf (0-5) Amorphous Sediment Not Reportable Urine Bacteria 4+ /hpf H /hpf (NONE) Salicylates < 0.3 mg/dL L mg/ dL (3-10) Urine Opiates Scre en Acetaminophen < 5.0 ug/mL L ug/ mL (10-30) Ur Barbiturates Sc reen Ur Phencyclidine S crn Ur Amphetamines Sc reen U Benzodiazepines Scrn Urine Cocaine Scre en U Marijuana (THC) Screen Ethyl Alcohol < 10 mg/dL mg/dL (0-10) 10/08/21 10/08/21 10/08/21 00:10 00:20 04:02 WBC RBC Hgb Hct MCV MCH MCHC RDW Plt Count MPV Neut % (Auto) Lymph % (Auto) [facility] % (Auto) Eos % (Auto) Baso % (Auto) Neut # (Auto) Lymph # (Auto) [facility] # (Auto) Eos # (Auto) Baso # (Auto) Nucleated RBC % (a uto) Nucleated RBCs # Sodium Potassium Chloride Carbon Dioxide Anion Gap BUN Creatinine GFR Calculation Glucose Calculated Osmolal ity Lactic Acid Calcium Magnesium Total Bilirubin AST ALT Alkaline Phosphata se Troponin T Baselin e Troponin T 120 Min [place] 13.16 ng/L H ng/L (0-10) Delta Troponin T 7.16 ABS# ABS# (0-10) Troponin T Hi Sens 6Hr 13.58 ng/L H ng/L (0-10) Troponin T Hi Sens 6Hr Delta 7.58 ng/L ng/L (0-12) Total Protein Albumin Globulin TSH Urine Color Urine Appearance Urine pH Ur Specific Gravit y Urine Protein Urine Glucose (UA) Urine Ketones Urine Blood Urine Nitrate Urine Bilirubin Urine Urobilinogen Ur Leukocyte Imani ase Urine RBC Urine WBC Ur Squamous Epith Cells Amorphous Sediment Urine Bacteria Salicylates Urine Opiates Scre en Negative ng/mL ng /mL (Negative) Acetaminophen Ur Barbiturates Sc reen Negative ng/mL ng /mL (Negative) Ur Phencyclidine S crn Negative ng/mL ng /mL (Negative) Ur Amphetamines Sc reen Negative ng/mL ng /mL (Negative) U Benzodiazepines Scrn Negative ng/mL ng /mL (Negative) Urine Cocaine Scre en Negative ng/mL ng /mL (Negative) U Marijuana (THC) Screen Positive ng/mL H ng/mL (Negative) Ethyl Alcohol EKG Data^: EKG 1: Computer generated interpretation: Chest X-Ray 10/07/21 22:26 IMPRESSION: Nonacute. Head CT 10/07/21 22:29 IMPRESSION: No evidence of active or acute intracranial pathologic process, hemorrhage, or trauma. Discharge Plan Discharge Patient Disposition: Home Clinical Impression: Palpitations, Light-headed feeling, Altered mental status Condition: Stable Prescriptions: No Action levothyroxine 200 mcg tablet 200 mcg PO DAILY RF: 0 telmisartan 20 mg tablet 20 mg PO DAILY RF: 0 trazodone 100 mg tablet 100 mg PO DAILY RF: 0 cholecalciferol (vitamin D3) 1,250 mcg (50,000 unit) capsule 50,000 unit PO DAILY RF: 0 Adult Probiotic 3 billion cell capsule 3,000 mmu cells PO DAILY RF: 0 propranolol 10 mg tablet 10 mg PO DAILY RF: 0 Discharge Orders: Discharge ED (Routine); Ordered 10/08/21 Ordered By: Tristan Martin Referrals: Karly Downs DO [Primary Care Provider] - 1-3 days Discharge Diet: Usual diet Discharge Activity: Resume usual activity Patient Instructions: Heart Palpitations (ED), Lightheadedness (ED), Altered Mental Status (ED) Activity Restrictions/Additional Instructions: Thank you for visiting our ER for palpitations, and lightheadedness. The exact cause of your symptoms is unclear however does not appear to need inpatient management at this time. Your symptoms may be secondary to your CBD use. Please follow-up with your primary care provider. Return to the emergency department for worsening symptoms, any focal weakness or sensory change, confusion, speech difficulty, balance problems, or anything else that you are concerned about and feel needs emergency department evaluation. Coding Level of Care Code ED Railways Assistant for Juni Dumont Exam Comprehensive
--- NOTE | 2021-10-07 22:26 | ECG_ITS ---
[facility] Test Date: 2021-10-07 Pat Name: Conchis Vickers Department: Room: Gender: Female Resident Care Manager: : 1955 Requested By: Tristan Delarosa Order Number: [id number] Vega MD: Mary Guadarrama M.D. Measurements Intervals Miles Rate: 80 P: 74 SD: 160 QRS: 86 QRSD: 102 T: 74 QT: 425 QTc: 491 Interpretive Statements SINUS RHYTHM MODERATE ST DEPRESSION [0.05+ mV ST DEPRESSION] Compared to ECG 11/20/2019 23:11:38 ST (T wave) deviation now present Electronically Signed On 10-09-2021 8:18:41 GEAR MACHINE OPERATOR GENERAL by Mary Guadarrama M.D. [id number]
--- NOTE | 2021-10-07 22:26 | XRR_ITS ---
PROCEDURE INFORMATION: Exam: XR Chest Exam date and time: 10/07/2021 10:26 PM Age: 66 years old Clinical indication: Other: Elevated hr TECHNIQUE: Imaging protocol: XR of the chest. Views: 1 view. Total images: 1 COMPARISON: CT chest abd pel w con* 07/30/2020 1:23 PM FINDINGS: Lungs: No visible active interstitial or alveolar airspace disease. Pleural spaces: Unremarkable. No pleural effusion. No pneumothorax. Heart/Mediastinum: Cardiac structures and configuration with mild arteriosclerosis. Bones/joints: Mild scoliotic curvature of the spine. XR/XR chest 1V portable [id number] IMPRESSION: Nonacute.
--- NOTE | 2021-10-07 22:29 | CTR_ITS ---
PROCEDURE INFORMATION: Exam: CT Head Without Contrast Exam date and time: 10/07/2021 10:29 PM Age: 66 years old Clinical indication: Altered mental status/memory loss; Additional info: AMS TECHNIQUE: Imaging protocol: Computed tomography of the head without contrast. Total images: 199 Radiation optimization: All CT scans at this facility use at least one of these dose optimization techniques: automated exposure control; mA and/or kV adjustment per patient size (includes targeted exams where dose is matched to clinical indication); or iterative reconstruction. COMPARISON: No relevant prior studies available. RADIATION DOSE METRICS: Total DLP (mGy-cm): 813.89 FINDINGS: Brain: No evidence of active or acute intracranial pathologic process, hemorrhage, or trauma. No visible evidence of diffuse cerebral edema or generalized demyelination. No mass effect. No midline shift. No hyperdense MCA or insular ribbon sign. Cerebral ventricles: No ventriculomegaly. Paranasal sinuses: Visualized sinuses are unremarkable. No fluid levels. Mastoid air cells: Visualized mastoid air cells are well aerated. Bones/joints: Unremarkable. No acute fracture. Soft tissues: Unremarkable. CT/CT head wo con* [id number] IMPRESSION: No evidence of active or acute intracranial pathologic process, hemorrhage, or trauma.
[2021-10-07] MEDS: sodium chloride 0.9% 1,000 ML 999 ML IV (22:40)
[2021-10-07] MEDS: naloxone 0.4 mg/ml SDV IVP (22:46)
[2021-10-07 22:58] VITALS: BP 112/65; PULSE 81; RESP 18; O2SAT 94
[2021-10-07 23:05] LABS: Basophils % 0.4 %; Eosinophils # 0.1 10^3/uL (0.0-0.8); Eosinophils % 1.1 %; Hematocrit 43.1 % (37.0-47.0); Hemoglobin 14.4 g/dL (11.5-15.3); Lymphocytes # 2.7 10^3/uL (0.8-4.8); Lymphocytes % 47.2 %; Mean Corpuscular HGB Conc 33.4 g/dL (30.0-36.0); Mean Corpuscular Hemoglobin 30.8 pg (28.0-34.0); Mean Corpuscular Volume 92.1 fl (81-99); Mean Platelet Volume 10.7 fL (7.4-10.4); Monocytes # 0.4 10^3/uL (0.2-0.9); Monocytes % 6.4 %; Neutrophils # 2.53 10^3/uL (1.8-7.7); Neutrophils % 44.9 %; Nucleated Red Blood Cells % 0 %; Platelet Count 320 10^3/cmm (130-400); Red Blood Count 4.68 10^6/uL (4.1-5.3); Red Cell Distribution Width 13.9 % (12.1-15.1); White Blood Count 5.6 10^3/uL (4.0-10.0)
[2021-10-07 23:23] LABS: Troponin(5th) Baseline 6 ng/L (0-10)
[2021-10-07 23:27] LABS: Acetaminophen < 5.0 ug/mL (10-30); Alcohol Level < 10 mg/dL (0-10); Salicylate < 0.3 mg/dL (3-10)
[2021-10-07 23:33] LABS: Alanine Aminotransferase 15 U/L (0-33); Albumin Level 4.8 g/dL (3.5-5.2); Alkaline Phosphatase 73 IU/L (35-105); Anion Gap 18.7 (5-19); Aspartate Amino Transferase 18 U/L (0-32); Blood Urea Nitrogen 16 mg/dL (8-23); Calcium 9.4 mg/dL (8.5-10.5); Carbon Dioxide 25 mmol/L (22-29); Chloride 95 mmol/L (98-107); Globulin 2.9 g/dL (1.3-4.6); Glomerular Filtration Rate 99.7 mL/min (90-130); Glucose 109 mg/dL (65-115); Magnesium 2.3 mg/dL (1.7-2.3); Osmolality Calculated 282 mOsm/kg (285-295); Potassium 3.7 mmol/L (3.5-5.1); Sodium 135 mmol/L (136-145); Total Bilirubin 0.4 mg/dL (0.15-1.2); Total Protein 7.7 g/dL (6.6-8.7)
[2021-10-07 23:35] LABS: Lactic Sepsis W/Reflex 0.9 mmol/L (0.5-2.2)
[2021-10-08 00:27] LABS: Bilirubin Urine Neg (Negative); Blood Urine Neg (Negative); Glucose Urine UA Norm (Normal); Ketones Urine 1+ (Negative); Nitrate Urine Positive (Negative); Protein Urine Neg (Negative); Urine Appearance SL Hazy (CLEAR); Urine Color Yellow (Yellow); Urobilinogen Urine Norm (Negative); pH Urine 7 (5-7)
[2021-10-08 00:28] VITALS: BP 149/85; PULSE 86; RESP 16; O2SAT 97
[2021-10-08 00:28] LABS: Add Urine Microscopic? YES; Leukocyte Esterase Urine Trace (Negative)
[2021-10-08 00:36] LABS: Add Urine Culture? Yes; Amphetamines Screen Urine Negative (Negative); Bacteria Urine 4+ /hpf; Barbiturates Screen Urine Negative (Negative); Benzodiazepines Screen Urine Negative (Negative); Cocaine Screen Urine Negative (Negative); Opiate Screen Urine Negative (Negative); PCP Screen Urine Negative (Negative); RBC Urine 0-4 /hpf (0-2); Squamous Epithelial Cell Urine 0-4 /hpf (0-5); THC Screen Urine Positive (Negative); WBC Urine 25-40 /hpf (0-5)
[2021-10-08 00:47] LABS: Troponin 5 2HR 13.16 ng/L (0-10); Troponin 5 2HR Delta 7.16 ABS# (0-10)
[2021-10-08 01:06] VITALS: BP 146/82; PULSE 90; O2SAT 97
[2021-10-08] MEDS: LORazepam 2 mg/mL INJ 1 mL 1 MG IVP (02:35)
[2021-10-08 04:25] VITALS: BP 118/79; PULSE 76; RESP 16; O2SAT 96
[2021-10-08 04:27] LABS: Troponin 5 6HR 13.58 ng/L (0-10); Troponin 5 6HR Delta 7.58 ng/L (0-12)
[2021-10-08 05:03] VITALS: BP 126/68; PULSE 74; RESP 14; O2SAT 97
== END 2021-10-08 05:50 | disposition home or self-care (01) ==
PROVIDERS: Emergency Medicine; Emergency Provider Emergency Medicine; PCP Internal Medicine
DX: R00.2 Palpitations (principal); R41.82 Altered mental status, unspecified; E03.9 Hypothyroidism, unspecified; E86.0 Dehydration; I10 Essential (primary) hypertension; Z85.01 Personal history of malignant neoplasm of esophagus; Z90.49 Acquired absence of other specified parts of digestive tract
CPT/HCPCS: 36415; 70450; 71045; 80053; 80306; 80307; 81001; 83605; 83735; 84443; 84484; 85025; 87077; 87086; 87186; 93005; 96361; 96374; 96375; 99284; J2060; J2310; J7030

== ENCOUNTER 2022-01-12 10:38 | Outpatient (CLI) | payer MEDICARE, SELFPAY ==
[2022-01-12 11:16] LABS: Basophils % 0.4 %; Eosinophils % 0.6 %; Hematocrit 37.7 % (37.0-47.0); Hemoglobin 12.6 g/dL (11.5-15.3); Lymphocytes # 1.3 10^3/uL (0.8-4.8); Lymphocytes % 23.9 %; Mean Corpuscular HGB Conc 33.4 g/dL (30.0-36.0); Mean Corpuscular Hemoglobin 31.2 pg (28.0-34.0); Mean Corpuscular Volume 93.3 fl (81-99); Monocytes # 0.4 10^3/uL (0.2-0.9); Neutrophils # 3.49 10^3/uL (1.8-7.7); Neutrophils % 66.9 %; Nucleated Red Blood Cells % 0 %; Platelet Count 246 10^3/cmm (130-400); Red Blood Count 4.04 10^6/uL (4.1-5.3); Red Cell Distribution Width 13.7 % (12.1-15.1); White Blood Count 5.2 10^3/uL (4.0-10.0)
[2022-01-12 11:46] LABS: Alanine Aminotransferase 17 U/L (0-33); Albumin Level 4.4 g/dL (3.5-5.2); Alkaline Phosphatase 70 IU/L (35-105); Anion Gap 14.2 (5-19); Aspartate Amino Transferase 16 U/L (0-32); Blood Urea Nitrogen 15 mg/dL (8-23); Calcium 9.6 mg/dL (8.5-10.5); Carbon Dioxide 27 mmol/L (22-29); Chloride 95 mmol/L (98-107); Glomerular Filtration Rate 123.1 mL/min (90-130); Glucose 108 mg/dL (65-115); Osmolality Calculated 275 mOsm/kg (285-295); Potassium 4.2 mmol/L (3.5-5.1); Sodium 132 mmol/L (136-145); Total Bilirubin 0.3 mg/dL (0.15-1.2); Total Protein 7.4 g/dL (6.6-8.7)
--- NOTE | 2022-01-12 16:55 | ONC FU_ITS ---
Dr. Bingham follow up note Patient: Conchis Vickers Unit #: [id number]: 1955 Dicatated By: Sri Bingham M.D.Date of Visit:Jan 12, 2022 Onc Med Follow-up/Prog Note History of Present Illness: Mrs. Conchis Francis, is a 66-year-old female who underwent EGD colonoscopy on 06/03/2019 for anemia and occult blood seen stools. EGD was normal but colonoscopy showed mass involving one third of the circumference of ileocecal valve and biopsy was obtained it showed adenocarcinoma and CT scan of abdomen pelvis was done on 06/09/2019 which showed cecum appears distended no hepatic lesion seen no mesenteric or pelvic lymphadenopathy. Patient underwent right hemicolectomy and it showed adenocarcinoma, low-grade, 4.2 x 2.6 x 1.1 cm mass focally penetrating muscularis propria into serosal connective tissues. Margins were clear, T3, 0 out of 16 lymph nodes positive for metastatic disease. No lymphovascular or venous involvement. MSI MMR status was intact.stage IIa, now being observed Patient tolerated procedure well. Now recovering well. On oral iron one tablet every other day since June 2019. Tolerating well.Patient stopped taking oral iron in August 2019, as she was feeling better.but he starCame for follow-up, denies any specific complaints, no nausea vomiting no fever chills, no melena or hematochezia, no diarrhea but constipation with oral iron, that is why , she is somewhat noncompliant with oral iron supplement. No jaundice no abdominal pain or fullness. Patient said she had mammogram done last year and as per her PMD was unremarkable and getting a ton yearly basis. , As per patient follow-up colonoscopy in fall 2019 was unremarkable Mammogram done on May 04, 2020 showed benign, Follow-up CT scan of abdomen pelvis done on July 06, 2021 shows no evidence of metastatic disease to the abdominal pelvis. Ascending colon anastomosis is intact with no recurrent mass or adenopathy. Mild diffuse constipation. Came for follow-up, denies any specific complaints, no fever or chills, no nausea or vomiting, no diarrhea or constipation, no melena or hematochezia, no hemoptysis hematemesis, no jaundice, no weight loss, patient drinks about 2 L of water every day. l ] Medications: Biotin 1 Tablet Oral daily, Ferrous Sulfate 1 Tablet (of 325 (65 fe) mg) Oral daily, K2 Plus D3 Tablet Oral, Krill Oil 1 Capsule Oral daily, Levothyroxine Sodium 0.5 Tablet (of 25 mcg) Oral daily, Probiotic Daily 1 Capsule Oral daily, traZODone HCl 1 Tablet (of 100 mg) Oral at bedtime, Vitamin C 1 Tablet Oral daily, Vitamin D3 1 Capsule Oral daily, Zinc 1 Tablet (of 25 mg) Oral daily Allergies: No Known Allergies. Review of Systems: Review of Systems is not available for this patient. Vital Signs: Performed on Jan 12, 2022 13:55 Height - 70.50 in Weight - 130.0 lbs (LOW) BSA - 1.75 sq.m BMI - 18.39 Temperature - 97.5 F (LOW) Pulse - 79 /min Respiration - 16 /min BP - 135/78 mm(hg) O2 Sat - 96 % Pain - 0 Fatigue - 0 Performance Status: 0 - Fully active, able to carry on all predisease activities without restrictions. (ECOG) Physical Examination: ENMT - No mouth sores, no thrush, no jaundice, Respiratory - Lungs are clear to auscultation, Cardiovascular - Regular rate and rhythm of heart, Abdomen - Soft, bowel sounds present, Extremities - No visible edema. Lab/Imaging: Most recent lab results are not available for this patient. 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 done on 06/16/2019 final pathology report showed 4.2 x 2.6 x 1.1 cm tumor penetrating muscularis propria into serosal connective tissues, with clear surgical margins, T3 0 out of 16 lymph nodes positive for metastatic disease, N0 No lymphovascular or venous invasion seen MMR/MSI intact Iron deficiency anemia tried oral iron Hyponatremia, probably due to excessive water intake Plan: Discussed with patient regarding her labs White blood count 5.2 hemoglobin 12.6 hematocrit 37.7 platelets 246 CMP within normal limit except sodium 132 Clinically, patient doing well with no new signs symptoms history of progressive disease, lab work-up shows persistent mild hyponatremia probably dilutional due to excessive water intake, patient was advised to cut down water intake about 6 glasses. Return to clinic in 6 months with CBC CMP and CEA Signed By: Sri Bingham M.D. <<Signature on File>>
[2022-01-12 17:23] LABS: Carcinoembryonic Antigen 6.7 ng/mL (0.0-4.7)
== END 2022-01-12 10:39 | disposition home or self-care (01) ==
PROVIDERS: PCP Internal Medicine; Visit Provider Internal Medicine Hematology & Oncology
DX: C18.0 Malignant neoplasm of cecum (principal); D50.9 Iron deficiency anemia, unspecified; E87.1 Hypo-osmolality and hyponatremia
CPT/HCPCS: 36415; 80053; 82378; 85025; 99214

== ENCOUNTER 2022-01-12 13:54 | Outpatient (CLI) | payer MEDICARE, SELFPAY ==
--- NOTE | 2022-01-12 14:11 | MM_ITS ---
WS: [id number] BILATERAL 3D TOMOSYNTHESIS DIGITAL SCREENING MAMMOGRAPHY WITH CAD CLINICAL INFORMATION: SCREENING HISTORY: Screening mammogram. No current complaints. COMPARISON: May 04, 2020 TECHNIQUE: Bilateral CC and MLO views. FINDINGS: Scattered fibroglandular densities bilaterally. Punctate and lucent centered calcifications. Ovoid as ymmetric density upper outer RIGHT breast measuring 5 mm. Recommend RIGHT diagnostic mammography and ultrasound in further evaluation. IMPRESSION: MM/[place] [id number] BI-RADS: 0-Incomplete: Need additional imaging evaluation FOLLOW UP: Need Additional Imaging Recommend RIGHT breast diagnostic mammography and ultrasound for further evalua tion.
== END 2022-01-12 13:55 | disposition home or self-care (01) ==
PROVIDERS: PCP Internal Medicine; Visit Provider Internal Medicine Hematology & Oncology
DX: Z12.31 Encounter for screening mammogram for malignant neoplasm of breast (principal)
CPT/HCPCS: 77063; 77067

== ENCOUNTER 2022-01-27 10:49 | Outpatient (CLI) | payer MEDICARE, SELFPAY ==
--- NOTE | 2022-01-27 10:59 | MM_ITS ---
WS: [id number] RIGHT 3D TOMOSYNTHESIS DIGITAL MAMMOGRAPHY WITH CAD CLINICAL INFORMATION: ABNORMAL MAMMOGRAM COMPARISON: January 12, 2022 TECHNIQUE: 3 views of the right breast were obtained. FINDINGS: Scattered fibroglandular densities of the right breast. Stable ovoid asymmetry upper outer RIGHT dima st measuring 5 mm. Ultrasound is pending. ULTRASOUND BREAST RIGHT TECHNIQUE: Ultrasound right breast focused area of concern. CLINICAL INFORMATION: ABNORMAL MAMMOGRAM COMPARISON: None. FINDINGS: Ultrasound upper outer RIGHT breast 9-12 o'clock. Dense underlying parenchymal tissue. No cystic or s olid lesions. No suspicious lesions to target for biopsy. MM/[place] [id number] IMPRESSION: BI-RADS: 2-Benign FOLLOW UP: 1 Year Follow-up Recommend return to annual screening mammography.
== END 2022-01-27 10:50 | disposition home or self-care (01) ==
PROVIDERS: PCP Internal Medicine; Visit Provider Internal Medicine Hematology & Oncology
DX: R92.8 Other abnormal and inconclusive findings on diagnostic imaging of breast (principal)
CPT/HCPCS: 76642; 77061

== ENCOUNTER 2022-06-21 23:37 | Emergency (ER) | payer MEDICARE, SELFPAY ==
[2022-06-21 23:51] VITALS: BP 175/103; PULSE 89; RESP 18; TEMP 36.8; O2SAT 98; BMI 18.6
[2022-06-22 03:14] VITALS: BP 169/88; PULSE 74; RESP 16; O2SAT 97
[2022-06-22 03:43] LABS: Hematocrit 35.1 % (37.0-47.0); Hemoglobin 11.7 g/dL (11.5-15.3); Lymphocytes # 1.4 10^3/uL (0.8-4.8); Lymphocytes % 36.4 %; Mean Corpuscular HGB Conc 33.3 g/dL (30.0-36.0); Mean Corpuscular Hemoglobin 31.1 pg (28.0-34.0); Mean Corpuscular Volume 93.4 fl (81-99); Monocytes # 0.3 10^3/uL (0.2-0.9); Monocytes % 7.8 %; Neutrophils # 2.08 10^3/uL (1.8-7.7); Neutrophils % 53.8 %; Nucleated Red Blood Cells % 0 %; Platelet Count 240 10^3/cmm (130-400); Red Blood Count 3.76 10^6/uL (4.1-5.3); Red Cell Distribution Width 13.8 % (12.1-15.1); White Blood Count 3.9 10^3/uL (4.0-10.0)
[2022-06-22 03:57] LABS: Anion Gap 13.7 (5-19); Blood Urea Nitrogen 13 mg/dL (8-23); Calcium 9.1 mg/dL (8.5-10.5); Carbon Dioxide 25 mmol/L (22-29); Chloride 101 mmol/L (98-107); Glomerular Filtration Rate 122.7 mL/min (90-130); Glucose 93 mg/dL (65-115); Osmolality Calculated 282 mOsm/kg (285-295); Potassium 3.7 mmol/L (3.5-5.1); Sodium 136 mmol/L (136-145)
--- NOTE | 2022-06-22 04:07 | ED_ITS ---
HPI - General Adult General: Chief complaint: General Medical Stated complaint: high bp Time Seen by Provider: 06/22/22 03:11 History of Present Illness: 67-year-old female presents because she is concerned about her sodium and her blood pressure. Patient reports that she has a history of low sodium and has been eating a lot of salt. That she felt little off earlier today so she took her blood pressure and found it was elevated. Because of that she was concerned that her sodium might be low and presented to the ER to have it evaluated. She denied any vision changes, chest pain, shortness of breath, headache or other systemic complaints. Associated symptoms: Deny chest pain, dyspnea, headache(s), nausea, rash, palpitations or vomiting Review of Systems Const: Denies: fever(s) or chills Eyes: Denies: change in vision or blurry vision ENMT: Denies: throat pain or ear or mastoid pain Card: Denies: chest pain, palpitations, irregular heart rhythm or lightheadedness Resp: Denies: dyspnea, productive cough or wheezing GI: Denies: abdominal pain, nausea or vomiting : Denies: flank pain or dysuria Musc: Denies: neck pain or back pain Skin/Breast: Denies: rash Neuro: Denies: headache(s), lack of coordination, dizziness or Slurred speech present Psych: Denies: anxiety or depression PFSH ED PFSH: Medical History Colon cancer Hypertension Hypothyroidism Surgical History H/O right hemicolectomy (~07/2019) History of amputation of finger of left hand 2016 History of colonoscopy with polypectomy (08/10/20) Diverticulosis, repeat in 5 years Family History Denies family history of Anesthesia complication Bleeding disorder Social History Smoking and tobacco status: never smoked Physical Exam Const: COMMON NORMALS: no acute distress, average body habitus, patient o riented x3, no limitations and alert HENMT: COMMON NORMALS: hearing grossly normal bilaterally and moist oral mucous membranes Eye: COMMON NORMALS: Equal, round and reactive pupils present and EOMs intact bilaterally PUPIL: Yes Equal, round and reactive pupils present Resp: COMMON NORMALS: normal respiratory effort, No use of accessory muscles and clear to auscultation bilaterally AUSCULTATION: clear to auscultation bilaterally Cardio: COMMON NORMALS: regular rate and regular rhythm RATE: regular rate RHYTHM: regular rhythm GI: COMMON NORMALS: Soft to palpation and non-tender PALPATION: Yes Soft to palpation Neuro: COMMON NORMALS: patient oriented x3, moves all extremities and no focal motor deficits SENSORIUM/ORIENTATION: Yes alert Psych: COMMON NORMALS: cooperative, normal affect and speech normal SPEECH: Yes normal speech Skin: COMMON NORMALS: no rashes or lesions noted and turgor normal GENERAL SKIN EXAM: no rashes or lesions noted and turgor normal Course Vital Signs: Vital signs: Vital Signs Temperature 98.2 F 06/21/22 23:51 Pulse Rate 74 06/22/22 03:14 Respiratory Rate 16 06/22/22 03:14 Blood Pressure 169/88 06/22/22 03:14 Pulse Oximetry 97 06/22/22 03:14 Oxygen Delivery Me thod 06/22/22 03:14 [facility] - General Adult Medical Decision Making Patient's blood sugar is slightly elevated. Patient is symptom-free. Patient's sodium is within the normal range. I will recommend she limits her salt intake with a normal sodium, follows up with her primary care provider for further outpatient evaluation of her high blood pressure after she changes her diet. Patient stable and discharged home Lab Data : 06/22/22 03:40 06/22/22 03:40 Laboratory Results WBC 3.9 10^3/uL (4.0-10.0) L 06/22/22 03:40 RBC 3.76 10^6/uL (4.1-5.3) L 06/22/22 03:40 Hgb 11.7 g/dL (11.5-15.3) 06/22/22 03:40 Hct 35.1 % (37.0-47.0) L 06/22/22 03:40 MCV 93.4 fl (81-99) 06/22/22 03:40 MCH 31.1 pg (28.0-34.0) 06/22/22 03:40 MCHC 33.3 g/dL (30.0-36.0) 06/22/22 03:40 RDW 13.8 % (12.1-15.1) 06/22/22 03:40 Plt Count 240 10^3/cmm (130-400) 06/22/22 03:40 MPV 10.0 fL (7.4-10.4) 06/22/22 03:40 Neut % (Auto) 53.8 % 06/22/22 03:40 Lymph % (Auto) 36.4 % 06/22/22 03:40 Isabela % (Auto) 7.8 % 06/22/22 03:40 Eos % (Auto) 1.0 % 06/22/22 03:40 Baso % (Auto) 1.0 % 06/22/22 03:40 Neut # (Auto) 2.08 10^3/uL (1.8-7.7) 06/22/22 03:40 Lymph # (Auto) 1.4 10^3/uL (0.8-4.8) 06/22/22 03:40 Isabela # (Auto) 0.3 10^3/uL (0.2-0.9) 06/22/22 03:40 Eos # (Auto) 0.0 10^3/uL (0.0-0.8) 06/22/22 03:40 Baso # (Auto) 0.0 10^3/uL (0.0-0.1) 06/22/22 03:40 Nucleated RBC % (auto) 0 % 06/22/22 03:40 Nucleated RBCs # 0.0 /100WBC 06/22/22 03:40 Sodium 136 mmol/L (136-145) 06/22/22 03:40 Potassium 3.7 mmol/L (3.5-5.1) 06/22/22 03:40 Chloride 101 mmol/L (98-107) 06/22/22 03:40 Carbon Dioxide 25 mmol/L (22-29) 06/22/22 03:40 Anion Gap 13.7 (5-19) 06/22/22 03:40 BUN 13 mg/dL (8-23) 06/22/22 03:40 Creatinine 0.5 mg/dL (0.5-0.9) 06/22/22 03:40 GFR Calculation 122.7 mL/min (90-130) 06/22/22 03:40 Glucose 93 mg/dL (65-115) 06/22/22 03:40 Calculated Osmolality 282 mOsm/kg (285-295) L 06/22/22 03:40 Calcium 9.1 mg/dL (8.5-10.5) 06/22/22 03:40 Discharge Plan Discharge Patient Disposition: Home Clinical Impression: Blood pressure elevated without history of HTN Condition: Stable Prescriptions: No Action levothyroxine 200 mcg tablet 200 mcg PO DAILY telmisartan 20 mg tablet 20 mg PO DAILY trazodone 100 mg tablet 100 mg PO DAILY cholecalciferol (vitamin D3) 1,250 mcg (50,000 unit) capsule 50,000 unit PO DAILY Adult Probiotic 3 billion cell capsule 3,000 mmu cells PO DAILY Rx Instructions: administer with a meal Discharge Orders: Discharge ED (Routine); Ordered 06/22/22 Ordered By: Ammon Ovalle Referrals: Sharyn Guerrero DO [Primary Care Provider] - Discharge Diet: Regular Discharge Activity: Resume usual activity Patient Instructions: Opioid Safety, Pain Management, Heart Healthy Diet (DC), Mediterranean Diet (DC), Hypertension (ED) Activity Restrictions/Additional Instructions: Please go back to a normal salt diet, please monitor your blood pressure if it remains elevated after a normal salt diet follow-up with your primary care provider for further evaluation Coding Level of Care Code ED Cost Control Supervisor for Juni Dumont
[2022-06-22 04:22] VITALS: BP 141/85; PULSE 88; RESP 16; O2SAT 98
== END 2022-06-22 04:23 | disposition home or self-care (01) ==
PROVIDERS: Emergency Provider Student in an Organized Health Care Education/Training Program; PCP Family Medicine
DX: R03.0 Elevated blood-pressure reading, without diagnosis of hypertension (principal); Z85.038 Personal history of other malignant neoplasm of large intestine
CPT/HCPCS: 80048; 85025; 99283

== ENCOUNTER 2022-07-11 10:45 | Oncology outpatient (recurring) (ONCR) | payer MEDICARE, SELFPAY ==
[2022-07-11 11:02] LABS: Basophils % 0.7 %; Eosinophils % 0.7 %; Hematocrit 35.9 % (37.0-47.0); Lymphocytes # 1.2 10^3/uL (0.8-4.8); Lymphocytes % 27.7 %; Mean Corpuscular HGB Conc 33.4 g/dL (30.0-36.0); Mean Corpuscular Hemoglobin 31.3 pg (28.0-34.0); Mean Corpuscular Volume 93.7 fl (81-99); Mean Platelet Volume 10.2 fL (7.4-10.4); Monocytes # 0.3 10^3/uL (0.2-0.9); Monocytes % 5.8 %; Neutrophils # 2.79 10^3/uL (1.8-7.7); Neutrophils % 64.9 %; Nucleated Red Blood Cells % 0 %; Platelet Count 228 10^3/cmm (130-400); Red Blood Count 3.83 10^6/uL (4.1-5.3); Red Cell Distribution Width 13.7 % (12.1-15.1); White Blood Count 4.3 10^3/uL (4.0-10.0)
[2022-07-11 11:27] LABS: Chol HDL Ratio 2.63 mg/dL (0.0-4.40); Cholesterol 192 mg/dL (0-200); HDL Cholesterol 73 mg/dL (60-100); LDL Cholesterol Calculated 103 mg/dL (50-129); LDL HDL Ratio 1.41 RATIO (0.00-3.22); Triglycerides 79 mg/dL (0-150)
[2022-07-11 11:35] LABS: Carcinoembryonic Antigen 4.3 ng/mL (0.0-4.7)
[2022-07-11 11:48] LABS: Alanine Aminotransferase 17 U/L (0-33); Albumin Level 4.2 g/dL (3.5-5.2); Alkaline Phosphatase 71 U/L (35-105); Anion Gap 17.1 (5-19); Aspartate Amino Transferase 18 U/L (0-32); Blood Urea Nitrogen 14 mg/dL (8-23); Calcium 9.3 mg/dL (8.5-10.5); Carbon Dioxide 24 mmol/L (22-29); Chloride 99 mmol/L (98-107); Globulin 2.6 g/dL (1.3-4.6); Glomerular Filtration Rate 99.4 mL/min (90-130); Glucose 94 mg/dL (65-115); Osmolality Calculated 282 mOsm/kg (285-295); Potassium 4.1 mmol/L (3.5-5.1); Sodium 136 mmol/L (136-145); Total Bilirubin 0.2 mg/dL (0.15-1.2); Total Protein 6.8 g/dL (6.6-8.7)
== END 2022-07-31 23:59 | disposition home or self-care (01) ==
PROVIDERS: PCP Family Medicine; Referring Provider Surgery; Visit Provider Internal Medicine Hematology & Oncology
DX: C18.2 Malignant neoplasm of ascending colon (principal); D64.9 Anemia, unspecified; K59.00 Constipation, unspecified; Z79.899 Other long term (current) drug therapy
CPT/HCPCS: 36415; 80053; 80061; 82378; 85025; 99214

== ENCOUNTER 2023-01-18 14:28 | Outpatient (CLI) | payer MEDICARE, SELFPAY ==
--- NOTE | 2023-01-18 14:48 | MM_ITS ---
WS: [id number] BILATERAL 3D TOMOSYNTHESIS DIGITAL DIAGNOSTIC MAMMOGRAPHY WITH CAD CLINICAL INFORMATION: FOLLOWUP COMPARISON: January 27, 2022 TECHNIQUE: Bilateral CC, MLO, and ML views. FINDINGS: The breasts are composed of heterogeneous fibroglandular density, which can limit the detection of sm all underlying mass lesions. Similar-appearing ovoid asymmetry upper outer RIGHT breast measuring 5 m m. Ultrasound described below. LEFT breast is unremarkable and unchanged. ULTRASOUND BREAST RIGHT TECHNIQUE: Ultrasound right breast focused area of concern. CLINICAL INFORMATION: FOLLOWUP COMPARISON: January 27, 2022 FINDINGS: Ultrasound upper outer RIGHT breast 9-12 o'clock. Dense underlying parenchymal tissue. No cystic or solid lesions. No suspicious lesions to target for biopsy. Recommend return to annual screening mammo graphy. MM/[place] [id number] IMPRESSION: BI-RADS: 2-Benign FOLLOW UP: 1 Year Follow-up Recommend return to annual screening mammography.
--- NOTE | 2023-01-18 15:43 | US_ITS ---
WS: [id number] BILATERAL 3D TOMOSYNTHESIS DIGITAL DIAGNOSTIC MAMMOGRAPHY WITH CAD CLINICAL INFORMATION: FOLLOWUP COMPARISON: January 27, 2022 TECHNIQUE: Bilateral CC, MLO, and ML views. FINDINGS: The breasts are composed of heterogeneous fibroglandular density, which can limit the detection of sm all underlying mass lesions. Similar-appearing ovoid asymmetry upper outer RIGHT breast measuring 5 m m. Ultrasound described below. LEFT breast is unremarkable and unchanged. ULTRASOUND BREAST RIGHT TECHNIQUE: Ultrasound right breast focused area of concern. CLINICAL INFORMATION: FOLLOWUP COMPARISON: January 27, 2022 FINDINGS: Ultrasound upper outer RIGHT breast 9-12 o'clock. Dense underlying parenchymal tissue. No cystic or solid lesions. No suspicious lesions to target for biopsy. Recommend return to annual screening mammo graphy. US/US breast RT limited* [id number] IMPRESSION: BI-RADS: 2-Benign FOLLOW UP: 1 Year Follow-up Recommend return to annual screening mammography.
== END 2023-01-18 14:29 | disposition home or self-care (01) ==
PROVIDERS: PCP Family Medicine; Visit Provider Internal Medicine Hematology & Oncology
DX: Z12.31 Encounter for screening mammogram for malignant neoplasm of breast (principal)
CPT/HCPCS: 76642; 77062; G0279

== ENCOUNTER 2023-01-19 10:01 | Outpatient (CLI) | payer MEDICARE, SELFPAY ==
--- NOTE | 2023-01-19 11:15 | CT_ITS ---
WS: [id number] CT CHEST, ABDOMEN AND PELVIS WITH CONTRAST HISTORY: 6 month follow up, history of colon cancer. TECHNIQUE: Contiguous 5 mm axial imaging performed through the chest, abdomen and pelvis with IV cont rast, oral contrast has been provided. Coronal and sagittal reformats chest. Coronal and sagittal ref ormats through the abdomen and pelvis. All CT scans at [facility] use at least one of these d ose optimization techniques: automated exposure control; mA and/or kV adjustment per patient size (in cludes targeted exams where dose is matched to clinical indication); or iterative reconstruction. CONTRAST: Omnipaque 350; 100 mL IV. DLP: 564.65 mGy.cm COMPARISON: 07/06/2021 and 07/30/[address]: There is several micronodules at the RIGHT apex that were present in 2019. Biapical pleural thickening is stable. No evidence for metastatic disease throughout the lungs. No mass or nodule. No mediastinal or hilar lymph nodes. Mild atherosclerosis aorta. Normal size pulmonary artery. Mild LEF T heart enlargement. No pleural or pericardial effusion. Small hiatal hernia. Abdomen CT: Normal size liver. 5 mm stable cyst posterior RIGHT lobe. Negative gallbladder. Normal sp nico. No adrenal mass. Mild pancreatic atrophy. No renal mass or obstruction. Moderate atherosclerosi s aorta. No ascites or adenopathy. Stomach is well-distended with oral contrast. No small bowel obstruction. R IGHT colonic surgical anastomotic site is intact. No mass or obstruction. Numerous fecal retention in the RIGHT colon. Numerous diverticula in the distal colon. No acute diverticulitis. Pelvic CT: Well-distended urinary bladder. No adenopathy. Mild degenerative disc disease at L4-5. No destructive bone lesions. CT/CT chest abdpel w/*[id number] IMPRESSION: 1. No metastatic lymphadenopathy in the chest, abdomen or pelvis. 2. Long-term stability RIGHT apical micronodules. 3. RIGHT colon surgical anastomosis. No obstruction or recurrent mass.
[2023-01-19] MEDS: iohexol 350 mg/mL 500 mL Btl (per mL) PO (11:20)
[2023-01-19 11:43] LABS: Blood Urea Nitrogen 11 mg/dL (8-23); Glomerular Filtration Rate 83.2 mL/min (90-130)
== END 2023-01-19 10:02 | disposition home or self-care (01) ==
LOC: RAD 10:04
PROVIDERS: PCP Family Medicine; Visit Provider Internal Medicine Hematology & Oncology
DX: C18.9 Malignant neoplasm of colon, unspecified (principal); Z85.038 Personal history of other malignant neoplasm of large intestine
CPT/HCPCS: 71260; 74177; 82565; 84520; Q9967

== ENCOUNTER 2023-01-22 13:33 | Oncology outpatient (recurring) (ONCR) | payer MEDICARE, SELFPAY ==
[2023-01-22 14:06] LABS: Basophils % 0.3 %; Eosinophils # 0.1 10^3/uL (0.0-0.8); Eosinophils % 0.8 %; Hematocrit 38.1 % (37.0-47.0); Hemoglobin 12.6 g/dL (11.5-15.3); Lymphocytes # 1.6 10^3/uL (0.8-4.8); Lymphocytes % 24.7 %; Mean Corpuscular HGB Conc 33.1 g/dL (30.0-36.0); Mean Corpuscular Hemoglobin 29.9 pg (28.0-34.0); Mean Corpuscular Volume 90.5 fl (81-99); Mean Platelet Volume 10.4 fL (7.4-10.4); Monocytes # 0.4 10^3/uL (0.2-0.9); Monocytes % 6.1 %; Neutrophils # 4.42 10^3/uL (1.8-7.7); Neutrophils % 67.8 %; Nucleated Red Blood Cells % 0 %; Platelet Count 253 10^3/cmm (130-400); Red Blood Count 4.21 10^6/uL (4.1-5.3); Red Cell Distribution Width 13.5 % (12.1-15.1); White Blood Count 6.5 10^3/uL (4.0-10.0)
[2023-01-22 14:47] LABS: Carcinoembryonic Antigen 4.9 ng/mL (0.0-4.7)
[2023-01-22 14:58] LABS: Alanine Aminotransferase 10 U/L (0-33); Albumin Level 4.3 g/dL (3.5-5.2); Alkaline Phosphatase 60 U/L (35-105); Anion Gap 16.1 (5-19); Aspartate Amino Transferase 13 U/L (0-32); Blood Urea Nitrogen 13 mg/dL (8-23); Calcium 9.2 mg/dL (8.5-10.5); Carbon Dioxide 24 mmol/L (22-29); Chloride 95 mmol/L (98-107); Globulin 2.7 g/dL (1.3-4.6); Glomerular Filtration Rate 99.4 mL/min (90-130); Glucose 93 mg/dL (65-115); Osmolality Calculated 272 mOsm/kg (285-295); Potassium 4.1 mmol/L (3.5-5.1); Sodium 131 mmol/L (136-145); Total Bilirubin 0.2 mg/dL (0.15-1.2)
[2023-01-23 01:03] LABS: Thyroid Stimulating Hormone 4.45 uIU/mL (0.27-4.20)
== END 2023-01-28 23:59 | disposition home or self-care (01) ==
PROVIDERS: PCP Family Medicine; Referring Provider Surgery; Visit Provider Internal Medicine Hematology & Oncology
DX: C18.2 Malignant neoplasm of ascending colon (principal); Z90.49 Acquired absence of other specified parts of digestive tract; M51.36 Other intervertebral disc degeneration, lumbar region
CPT/HCPCS: 36415; 80053; 82378; 84443; 85025; 99214

== ENCOUNTER 2023-04-19 09:58 | Oncology outpatient (recurring) (ONCR) | payer MEDICARE, SELFPAY ==
[2023-04-19 10:28] VITALS: BP 134/83; PULSE 78; RESP 18; TEMP 36.7; O2SAT 97
[2023-04-19 10:40] LABS: Basophils % 0.7 %; Hematocrit 38.1 % (37.0-47.0); Hemoglobin 12.7 g/dL (11.5-15.3); Lymphocytes # 1.5 10^3/uL (0.8-4.8); Lymphocytes % 37.3 %; Mean Corpuscular HGB Conc 33.3 g/dL (30.0-36.0); Mean Corpuscular Hemoglobin 31.1 pg (28.0-34.0); Mean Corpuscular Volume 93.2 fl (81-99); Mean Platelet Volume 10.3 fL (7.4-10.4); Monocytes # 0.3 10^3/uL (0.2-0.9); Monocytes % 7.1 %; Neutrophils % 53.7 %; Nucleated Red Blood Cells % 0 %; Platelet Count 247 10^3/cmm (130-400); Red Blood Count 4.09 10^6/uL (4.1-5.3); Red Cell Distribution Width 13.7 % (12.1-15.1); White Blood Count 4.1 10^3/uL (4.0-10.0)
[2023-04-19 11:05] LABS: Carcinoembryonic Antigen 4.9 ng/mL (0.0-4.7)
== END 2023-04-30 23:59 | disposition home or self-care (01) ==
PROVIDERS: Nurse Practitioner; PCP Family Medicine; Referring Provider Surgery; Visit Provider Internal Medicine Hematology & Oncology
DX: C18.9 Malignant neoplasm of colon, unspecified (principal); E03.9 Hypothyroidism, unspecified; C18.2 Malignant neoplasm of ascending colon; Z79.899 Other long term (current) drug therapy
CPT/HCPCS: 36415; 82378; 85025

== ENCOUNTER 2023-08-29 11:17 | Oncology outpatient (recurring) (ONCR) | payer MEDICARE, SELFPAY ==
[2023-08-29 11:42] VITALS: BP 114/68; PULSE 84; RESP 18; TEMP 36.6; O2SAT 98
[2023-08-29 11:51] LABS: Basophils % 0.4 %; Eosinophils % 0.6 %; Hematocrit 36.1 % (36-47); Lymphocytes # 1.3 10^3/uL (0.8-4.8); Lymphocytes % 26.4 %; Mean Corpuscular HGB Conc 33.2 g/dL (30-55); Mean Corpuscular Hemoglobin 30.8 pg (27-33); Mean Corpuscular Volume 92.6 fl (85-98); Mean Platelet Volume 10.8 fL (7.4-10.4); Monocytes # 0.3 10^3/uL (0.2-0.9); Monocytes % 5.7 %; Neutrophils # 3.28 10^3/uL (1.8-7.7); Neutrophils % 66.7 %; Nucleated Red Blood Cells % 0 %; Platelet Count 236 10^3/cmm (157-399); Red Cell Distribution Width 13.8 % (12.1-15.1); White Blood Count 4.92 10^3/uL (3.29-11.43)
[2023-08-29 12:25] LABS: Carcinoembryonic Antigen 5.6 ng/mL (0.0-4.7)
[2023-08-29 12:36] LABS: Alanine Aminotransferase 9 U/L (0-33); Albumin Level 4.2 g/dL (3.5-5.2); Alkaline Phosphatase 56 U/L (35-105); Anion Gap 15.3 (5-19); Aspartate Amino Transferase 14 U/L (0-32); Blood Urea Nitrogen 19 mg/dL (8-23); Calcium 9.5 mg/dL (8.5-10.5); Carbon Dioxide 25 mmol/L (22-29); Chloride 101 mmol/L (98-107); Globulin 2.5 g/dL (1.3-4.6); Glucose 122 mg/dL (65-115); Osmolality Calculated 288 mOsm/kg (285-295); Potassium 4.3 mmol/L (3.5-5.1); Sodium 137 mmol/L (136-145); Total Bilirubin 0.2 mg/dL (0.15-1.2); Total Protein 6.7 g/dL (6.6-8.7)
== END 2023-08-30 23:59 | disposition home or self-care (01) ==
PROVIDERS: PCP Family Medicine; Referring Provider Surgery; Visit Provider Internal Medicine Hematology & Oncology
DX: C18.9 Malignant neoplasm of colon, unspecified (principal); E03.9 Hypothyroidism, unspecified; Z78.0 Asymptomatic menopausal state; Z79.899 Other long term (current) drug therapy
CPT/HCPCS: 36415; 80053; 82378; 85025; 99214

== ENCOUNTER 2023-09-20 12:38 | Outpatient (CLI) | payer MEDICARE, SELFPAY ==
--- NOTE | 2023-09-20 13:00 | XR_ITS ---
WS: [id number] SCREENING DEXA SCAN [employer] CLINICAL INFORMATION: screening COMPARISON: None. FINDINGS: The L1-L4 bone mineral density measures 1.223 g/cm2. This corresponds to a T score score of 0.4 and Z score of 2.0. Left femoral neck bone mineral density measures 0.746 g/cm2. This corresponds to a T score of -2.1 an d Z score of -0.7. Right femoral neck bone mineral density measures 0.774 g/cm2. This corresponds to a T score -1.9of an d Z score of -0.4. Mean femoral neck bone mineral density measures 0.760 g/cm2. This corresponds to a T score of -2.0 an d Z score of -0.5. IMPRESSION: Normal bone mineralization lumbar spine. Osteopenia femoral necks. Patient's FRAX calculated 10 year probability for major osteoporotic fracture is 19.9% and osteoporot ic hip fracture is 5.6%.
== END 2023-09-20 12:39 | disposition home or self-care (01) ==
LOC: RAD 12:38
PROVIDERS: PCP Family Medicine; Visit Provider Internal Medicine Hematology & Oncology
DX: Z78.0 Asymptomatic menopausal state (principal); C18.9 Malignant neoplasm of colon, unspecified; Z13.820 Encounter for screening for osteoporosis; M85.88 Other specified disorders of bone density and structure, other site
CPT/HCPCS: 77080

== ENCOUNTER 2023-09-27 11:38 | Outpatient (CLI) | payer MEDICARE, SELFPAY ==
--- NOTE | 2023-09-27 12:00 | CTR_ITS ---
PROCEDURE INFORMATION: Exam: CT Chest Without and With Contrast; Diagnostic Exam date and time: 09/27/2023 1:10 PM Age: 68 years old Clinical indication: Condition or disease; Other: Colon cancer; Other: Colon cancer; Prior surgery; Surgery date: 6+ months; Additional info: Restaging TECHNIQUE: Imaging protocol: Diagnostic computed tomography of the chest without and with contrast. Radiation optimization: All CT scans at this facility use at least one of these dose optimization techniques: automated exposure control; mA and/or kV adjustment per patient size (includes targeted exams where dose is matched to clinical indication); or iterative reconstruction. Contrast material: OMNI 350; Contrast volume: 100 ml; Contrast route: INTRAVENOUS (IV); REPORTING DATA: Count of CT and Cardiac NM exams in prior 12 months: This patient has received [address] and 0 known cardiac nuclear medicine studies in the 12 months prior to the current study. COMPARISON: CT chest abdpel w/*[id number] 01/19/2023 11:45 AM and July 30, 2020 RADIATION DOSE METRICS: Total DLP (mGy-cm): 576.22 FINDINGS: Lungs: There is still working and severe few small nodules right lung apex measuring up to 4 mm, unchanged consistent with benign etiology. Stable calcified nodule right upper lobe also benign. No new nodules detected. Minimal biapical fibrotic changes, stable. Lung vela are otherwise aerated and clear. Pleural spaces: Unremarkable. No pneumothorax. No pleural effusion. Heart: Heart is not significantly enlarged. There are mild calcifications of the coronary arteries. No significant pericardial effusion. Lymph nodes: Unremarkable. No enlarged lymph nodes. Vasculature: Unremarkable. No aortic aneurysm. Bones/joints: Unremarkable. No acute fracture. Soft tissues: Unremarkable. PROCEDURE INFORMATION: Exam: CT Abdomen And Pelvis Without And With Contrast Exam date and time: 09/27/2023 1:10 PM Age: 68 years old Clinical indication: Condition or disease; Other: Colon cancer; Other: Colon cancer; Prior surgery; Surgery date: 6+ months; Additional info: Restaging TECHNIQUE: Imaging protocol: Computed tomography of the abdomen and pelvis without and with contrast. Radiation optimization: All CT scans at this facility use at least one of these dose optimization techniques: automated exposure control; mA and/or kV adjustment per patient size (includes targeted exams where dose is matched to clinical indication); or iterative reconstruction. Contrast material: OMNI 350; Contrast volume: 100 ml; Contrast route: INTRAVENOUS (IV); REPORTING DATA: Count of CT and Cardiac NM exams in prior 12 months: This patient has received [address] and 0 known cardiac nuclear medicine studies in the 12 months prior to the current study. COMPARISON: CT chest abdpel w/*[id number] 01/19/2023 11:45 AM RADIATION DOSE METRICS: Total DLP (mGy-cm): 576.22 FINDINGS: Lungs: Lung bases are clear. Liver: Small hypodensity right lobe of the liver likely representing benign liver cyst unchanged. Gallbladder and bile ducts: Normal. No calcified stones. No ductal dilation. Pancreas: Unremarkable. Main pancreatic duct is not significantly dilated. Spleen: Normal. No splenomegaly. Adrenal glands: Normal. No mass. Kidneys and ureters: Normal. No hydronephrosis. Stomach and bowel: Stable postsurgical changes right colon. Moderate degree of retained stool throughout the large bowel. Scattered diverticuli distal large bowel without evidence of acute diverticulitis. Appendix: No evidence of appendicitis. Intraperitoneal space: There is subtle indistinct fat stranding lateral to the right colon within the right lower quadrant that has developed etiology of which is unclear. Remainder of the fat planes within the peritoneal cavity are unchanged unremarkable. There is no free fluid seen. Vasculature: Scattered atherosclerotic changes of the abdominal aorta and iliac vessels. No aortic aneurysm. Lymph nodes: Unremarkable. No enlarged lymph nodes. Urinary bladder: Unremarkable as visualized. Reproductive: Unremarkable as visualized. Bones/joints: Advanced asymmetric degenerative changes L4-L5 with mild lateral listhesis, stable. No suspicious bone lesions detected. Soft tissues: Unremarkable. CT/CT ch abdpel wo/w [id number] IMPRESSION: Stable CT examination of the chest. No evidence of metastatic disease. IMPRESSION: 1. No compelling evidence of recurrent or metastatic disease within the abdomen and pelvis. 2. Interval development of subtle indistinct mesenteric fat stranding lateral to the right colon within the right lower quadrant etiology of which is unclear. Continued follow-up advised.
[2023-09-27] MEDS: iohexol 350 mg/mL 500 mL Btl (per mL) IV (13:15)
[2023-09-27] MEDS: iohexol 350 mg/mL 500 mL Btl (per mL) PO (13:17)
== END 2023-09-27 11:39 | disposition home or self-care (01) ==
LOC: RAD 11:38
PROVIDERS: PCP Family Medicine; Visit Provider Internal Medicine Hematology & Oncology
DX: C18.9 Malignant neoplasm of colon, unspecified (principal)
CPT/HCPCS: 71260; 74178; Q9967

== ENCOUNTER 2023-11-29 12:51 | Oncology outpatient (recurring) (ONCR) | payer MEDICARE, SELFPAY ==
[2023-11-29 13:15] LABS: Basophils % 0.4 %; Eosinophils % 0.1 %; Hematocrit 39.9 % (36-47); Lymphocytes # 1.5 10^3/uL (0.8-4.8); Lymphocytes % 21.4 %; Mean Corpuscular HGB Conc 32.8 g/dL (30-55); Mean Corpuscular Hemoglobin 30.3 pg (27-33); Mean Corpuscular Volume 92.4 fl (85-98); Mean Platelet Volume 9.6 fL (7.4-10.4); Monocytes # 0.3 10^3/uL (0.2-0.9); Monocytes % 4.7 %; Neutrophils # 4.96 10^3/uL (1.8-7.7); Neutrophils % 73.3 %; Nucleated Red Blood Cells % 0 %; Platelet Count 321 10^3/cmm (157-399); Red Blood Count 4.32 10^6/uL (3.85-5.65); Red Cell Distribution Width 13.7 % (12.1-15.1); White Blood Count 6.78 10^3/uL (3.29-11.43)
[2023-11-29 13:49] LABS: Alanine Aminotransferase 9 U/L (0-33); Albumin Level 4.2 g/dL (3.5-5.2); Alkaline Phosphatase 57 U/L (35-105); Anion Gap 12.9 (5-19); Aspartate Amino Transferase 16 U/L (0-32); Blood Urea Nitrogen 11 mg/dL (8-23); Calcium 9.4 mg/dL (8.5-10.5); Carbon Dioxide 28 mmol/L (22-29); Chloride 100 mmol/L (98-107); Glucose 134 mg/dL (65-115); Osmolality Calculated 285 mOsm/kg (285-295); Potassium 3.9 mmol/L (3.5-5.1); Sodium 137 mmol/L (136-145); Total Bilirubin 0.3 mg/dL (0.15-1.2); Total Protein 7.2 g/dL (6.6-8.7)
[2023-11-29 14:31] LABS: Carcinoembryonic Antigen 4.5 ng/mL (0.0-4.7)
== END 2023-11-29 23:59 | disposition home or self-care (01) ==
PROVIDERS: PCP Family Medicine; Referring Provider Surgery; Visit Provider Internal Medicine Hematology & Oncology
DX: M85.89 Other specified disorders of bone density and structure, multiple sites; Z85.038 Personal history of other malignant neoplasm of large intestine; Z08 Encounter for follow-up examination after completed treatment for malignant neoplasm; Z90.49 Acquired absence of other specified parts of digestive tract
CPT/HCPCS: 36415; 80053; 82378; 85025; 99214

== ENCOUNTER 2024-07-16 09:42 | Emergency (ER) | payer MEDICARE, SELFPAY ==
[2024-07-16 09:58] VITALS: BP 152/91; PULSE 97; RESP 18; TEMP 36.3; O2SAT 97; BMI 18.6
--- NOTE | 2024-07-16 10:12 | CT_ITS ---
WS: [id number] CT HEAD NONCONTRAST HISTORY: confusion TECHNIQUE: Contiguous axial imaging performed through the brain. Bone and soft tissue windows. Sagitt al and coronal reformats reviewed. All CT scans at [facility] use at least one of these dose optimization techniques: automated exposure control; mA and/or kV adjustment per patient size (includ es targeted exams where dose is matched to clinical indication); or iterative reconstruction. DLP: 1048.08 mGy.cm COMPARISON: 10/07/2021 No acute intracranial hemorrhage, midline shift or mass effect. No atrophy or prior infarcts or herniation. Ventricles: Normal size with no hydrocephalus. Paranasal sinuses: As visualized are clear. Mastoid air cells: Well pneumatized. Calvarium and scalp: Skull is intact with no soft tissue edema or swelling. CT/CT head wo con* [id number] IMPRESSION: Negative head CT.
--- NOTE | 2024-07-16 10:12 | ECG_ITS ---
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 Measurements Intervals Moran Rate: 92 P: 83 VA: 157 QRS: 103 QRSD: 90 T: 27 QT: 353 QTc: 437 Interpretive Statements SINUS RHYTHM RIGHT AXIS DEVIATION [QRS AXIS > 100] NONSPECIFIC ST & T-WAVE ABNORMALITY Compared to ECG 10/07/2021 22:22:20 Right-axis deviation now present T-wave abnormality now present ST (T wave) deviation no longer present Electronically Signed On 07-16-2024 16:42:10 CDT by Camilo Srinivasan M.D. [email or web address]
--- NOTE | 2024-07-16 10:14 | XRR_ITS ---
PROCEDURE INFORMATION: Exam: XR Abdomen Exam date and time: 07/16/2024 1:18 PM Age: 69 years old Clinical indication: Constipation TECHNIQUE: Imaging protocol: Radiologic exam of the abdomen. Views: Frontal supine view of the abdomen. 1 View. COMPARISON: CT ch abdpel wo/w [id number] 09/27/2023 1:10 PM FINDINGS: Lungs: Lung bases are clear. Gastrointestinal tract: Severe constipation. Diffusely air-filled loops of bowel in the abdomen in a nonobstructive pattern. Intraperitoneal space: No abnormal intraperitoneal calcifications. There is no free intraperitoneal air. Vasculature: There are numerous benign phleboliths in the pelvis. Bones/joints: No acute skeletal abnormality or aggressive osseous lesion. XR/XR KUB [id number] IMPRESSION: Bloating and severe constipation.
--- NOTE | 2024-07-16 10:14 | ED_ITS ---
HPI - Anxiety 2 General: Chief Complaint: Anxiety Stated Complaint: weakness Time Seen by Provider: 07/16/24 10:07 Source: patient Mode of arrival: ambulatory Limitations: no limitations History of Present Illness: 69-year-old female who states that been having some constipation states with her bowels been full. She is also been having some paranoia states she feels likely from people going through her mail and even people going through her house. She states she does take THC every night but has been doing that for years states she denies any SI or HI no history of schizophrenia she does have some flight of ideas here. Related Data Home Medications Medication Instructions Recorded Confirmed cholecalciferol (vitamin D3) 1,250 50,000 unit PO DAILY 07/20/20 07/16/24 mcg (50,000 unit) capsule lactobacillus combination no.8 3 3,000 mmu cells PO DAILY 07/20/20 07/16/24 billion cell capsule (Adult Probiotic) levothyroxine 25 mcg capsule 12.5 mcg PO DAILY 07/11/22 07/16/24 mirtazapine 15 mg tablet 15 mg PO DAILY 11/29/23 07/16/24 Allergies Allergy/AdvReac Type Severity Reaction Status Date / Time No Known Allergies Allergy Verified 11/29/23 15:00 [facility] ED 2 PFSH: Medical History Colon cancer Stage II Hypertension Hypothyroidism Surgical History H/O right hemicolectomy (~07/2019) History of amputation of finger of left hand 2016 History of colonoscopy with polypectomy (08/10/20) Diverticulosis, repeat in 5 years Family History Mother Stroke Other CAD (coronary artery disease) Cancer Diabetes Hypertension Denies family history of Clotting disorder Dementia Hyperlipidemia Psychiatric illness Chronic kidney disease (CKD) Suicide Anesthesia complication Bleeding disorder Lung disease Social History Smoking and tobacco/nicotine status: never used tobacco/nicotine Alcohol intake: current Alcohol intake frequency: holidays/special occasions only Physical Exam 2 Const: COMMON NORMALS: no acute distress, patient oriented x3 and healthy appearing HENMT: COMMON NORMALS: normocephalic and atraumatic HEAD & SCALP: n ormocephalic and atraumatic Neck/C-Spine: COMMON NORMALS: full ROM and supple Chest: COMMONS NORMALS: normal inspection of the chest Resp: COMMON NORMALS: normal respiratory effort, No retractions, No use of accessory muscles and clear to auscultation bilaterally AUSCULTATION: clear to auscultation bilaterally Cardio: COMMON NORMALS: regular rate, regular rhythm and No murmurs present (Cardio) RATE: regular rate RHYTHM: regular rhythm GI: COMMON NORMALS: Normal to inspection, nondistended, normoactive bowel sounds present, Soft to palpation, non-tender and no masses PALPATION: Yes Soft to palpation Extremity: COMMON NORMALS: normal to inspection and full ROM Neuro: COMMON NORMALS: patient oriented x3, moves all extremities and no focal motor deficits Psych: COMMON NORMALS: mental status grossly normal, Normal thought process present and cooperative ATTITUDE: Yes paranoid THOUGHT PROCESS: Normal thought process present Skin: COMMON NORMALS: no rashes or lesions noted and no wounds GENERAL SKIN EXAM: no rashes or lesions noted Course 2 Vital Signs: Vital signs: Vital Signs Temperature 97.4 F L 07/16/24 09:58 Pulse Rate 71 07/17/24 06:06 Respiratory Rate 23 H 07/16/24 11:19 Blood Pressure 132/79 07/17/24 06:06 Pulse Oximetry 97 07/17/24 06:06 Oxygen Delivery Me thod Room Air 07/17/24 06:06 MDM - Anxiety Medical Decision Making Patient presents here with paranoia acute psychosis she is medically cleared I spoke to psychiatrist here evaluate who recommended inpatient [facility] patient excepted at [place] for higher level of care geriatric psych. Medical Records I reviewed the patient's medical records. Lab Data I reviewed the patient's lab results. 07/16/24 10:27 07/16/24 10:[address] 07/16/24 10:12 IMPRESSION: Negative head CT. KUB X-Ray 07/16/24 10:14 IMPRESSION: Bloating and severe constipation. Laboratory Results WBC 4.84 10^3/uL (3.29-11.43) 07/16/24 10:27 RBC 4.20 10^6/uL (3.85-5.65) 07/16/24 10:27 Hgb 12.70 g/dL (11.27-16.99) 07/16/24 10: Hct 37.9 % (36-47) 07/16/24 10: MCV 90.2 fl (85-98) 07/16/24 10:27 MCH 30.2 pg (27-33) 07/16/24 10: MCHC 33.5 g/dL (30-55) 07/16/24 10: RDW 13.7 % (12.1-15.1) 07/16/24 10: Plt Count 305 10^3/cmm (157-399) 07/16/24 10: MPV 10.3 fL (7.4-10.4) 07/16/24 10: Neut % (Auto) 74.0 % 07/16/24 10:27 Lymph % (Auto) 19.6 % 07/16/24 10: [place] % (Auto) 5.2 % 07/16/24 10: Eos % (Auto) 0.4 % 07/16/24 10: Baso % (Auto) 0.6 % 07/16/24 10: Neut # (Auto) 3.58 10^3/uL (1.8-7.7) 07/16/24 10: Lymph # (Auto) 1.0 10^3/uL (0.8-4.8) 07/16/24 10:27 [place] # (Auto) 0.3 10^3/uL (0.2-0.9) 07/16/24 10: Eos # (Auto) 0.0 10^3/uL (0.0-0.8) 07/16/24 10: Baso # (Auto) 0.0 10^3/uL (0.0-0.1) 07/16/24 10: Nucleated RBC % (auto) 0 % 07/16/24 10: Nucleated RBCs # 0.0 /100WBC 07/16/24 10: Sodium 137 mmol/L (136-145) 07/16/24 10: Potassium 3.9 mmol/L (3.5-5.1) 07/16/24 10: Chloride 100 mmol/L (98-107) 07/16/24 10:27 Carbon Dioxide 24 mmol/L (22-29) 07/16/24 10:27 Anion Gap 16.9 (5-19) 07/16/24 10:27 BUN 11 mg/dL (8-23) 07/16/24 10:27 Creatinine 0.6 mg/dL (0.5-0.9) 07/16/24 10: GFR Calculation 98.8 mL/min (90-130) 07/16/24 10:27 Glucose 126 mg/dL (65-115) H 07/16/24 10:27 Calculated Osmolality 285 mOsm/kg (285-295) 07/16/24 10:27 Calcium 9.1 mg/dL (8.5-10.5) 07/16/24 10:27 Total Bilirubin 0.3 mg/dL (0.15-1.2) 07/16/24 10: AST 18 U/L (0-32) 07/16/24 10: ALT 11 U/L (0-33) 07/16/24 10: Alkaline Phosphatase 72 U/L (35-105) 07/16/24 10:27 Total Protein 7.0 g/dL (6.6-8.7) 07/16/24 10: Albumin 4.3 g/dL (3.5-5.2) 07/16/24 10: Globulin 2.7 g/dL (1.3-4.6) 07/16/24 10: TSH 2.26 uIU/mL (0.27-4.20) 07/16/24 10:27 Urine Color Yellow (Yellow) 07/16/24 10:58 Urine Appearance Clear (CLEAR) 07/16/24 10:58 Urine pH 6.5 (5-7) 07/16/24 10:58 Ur Specific [place] 1.008 (1.005-1.030) 07/16/24 10:58 Urine Protein Negative (Negative) 07/16/24 10:58 Urine Glucose (UA) Negative (Normal) 07/16/24 10:58 Urine Ketones Negative (Negative) 07/16/24 10:58 Urine Blood Negative (Negative) 07/16/24 10:58 Urine Nitrate Negative (Negative) 07/16/24 10:58 Urine Bilirubin Negative (Negative) 07/16/24 10:58 Urine Urobilinogen 0.2 mg/dL (Negative) 07/16/24 10:58 Ur Leukocyte Esterase Negative (Negative) 07/16/24 10:58 Urine RBC 0-2 /hpf (0-2) 07/16/24 10:58 Urine WBC 0-5 /hpf (0-5) 07/16/24 10:58 Ur Squamous Epith Cells 0-5 /hpf (0-5) 07/16/24 10:58 Amorphous Sediment Not Reportable 07/16/24 10:58 Urine Bacteria None seen /hpf (NONE) 07/16/24 10:58 Hyaline Casts 0-4 /lpf H 07/16/24 10:58 Salicylates < 0.3 mg/dL (3-10) L 07/16/24 10:27 Urine Opiates Screen Negative ng/mL (Negative) 07/16/24 10:58 Acetaminophen < 5.0 ug/mL (10-30) L 07/16/24 10:27 Ur Barbiturates Screen Negative ng/mL (Negative) 07/16/24 10:58 Ur Phencyclidine Scrn Negative ng/mL (Negative) 07/16/24 10:58 Ur Amphetamines Screen Negative ng/mL (Negative) 07/16/24 10:58 U Benzodiazepines Scrn Negative ng/mL (Negative) 07/16/24 10:58 Urine Cocaine Screen Negative ng/mL (Negative) 07/16/24 10:58 U Marijuana (THC) Screen Positive ng/mL (Negative) H 07/16/24 10:58 Ethyl Alcohol < 10 mg/dL (0-10) 07/16/24 10:27 Coronavirus (PCR) Negative (Negative) 07/16/24 16:04 Influenza A (PCR) Negative (Negative) 07/16/24 16:04 Influenza Type B (PCR) Negative (Negative) 07/16/24 16:04 RSV (PCR) Negative (Negative) 07/16/24 16:04 All radiology interpretation(s) finalized by discharge EKG Data EKG 1: I personally reviewed and interpreted this EKG as follows: EKG interpretation date: 07/16/24 EKG interpretation time: 10:12 Interpretation: Head CT 07/16/24 10:12 IMPRESSION: Negative head CT. KUB X-Ray 07/16/24 10:14 IMPRESSION: Bloating and severe constipation. nsr hr [address] elevation qrs 90 qtc 402 Other EKG comments: Head CT 07/16/24 10:12 IMPRESSION: Negative head CT. KUB X-Ray 07/16/24 10:14 IMPRESSION: Bloating and severe constipation. Discharge Plan Discharge Condition: Stable Prescriptions: No Action cholecalciferol (vitamin D3) 1,250 mcg (50,000 unit) capsule 50,000 unit PO DAILY Adult Probiotic 3 billion cell capsule 3,000 mmu cells PO DAILY Rx Instructions: administer with a meal levothyroxine 25 mcg capsule 12.5 mcg PO DAILY mirtazapine 15 mg tablet 15 mg PO DAILY Referrals: Sharyn Guerrero DO [Primary Care Provider] - Coding Level of Care Code ED Manager [employer] for [facility]
[2024-07-16 11:19] VITALS: BP 160/87; PULSE 88; RESP 23
[2024-07-16 11:20] LABS: Bilirubin Urine Negative (Negative); Blood Urine Negative (Negative); Glucose Urine UA Negative (Normal); Ketones Urine Negative (Negative); Leukocyte Esterase Urine Negative (Negative); Nitrate Urine Negative (Negative); Protein Urine Negative (Negative); Specific Gravity, Urine 1.008 (1.005-1.030); Urine Appearance Clear (CLEAR); Urine Color Yellow (Yellow); Urobilinogen Urine 0.2 mg/dL (Negative); pH Urine 6.5 (5-7)
[2024-07-16 11:23] LABS: Add Urine Microscopic? YES; Bacteria Urine None Seen /hpf; Hyaline Casts Urine 0-4 /lpf; RBC Urine 0-2 /hpf (0-2); Squamous Epithelial Cell Urine 0-5 /hpf (0-5); WBC Urine 0-5 /hpf (0-5)
[2024-07-16 11:27] LABS: Basophils % 0.6 %; Eosinophils % 0.4 %; Hematocrit 37.9 % (36-47); Lymphocytes % 19.6 %; Mean Corpuscular HGB Conc 33.5 g/dL (30-55); Mean Corpuscular Hemoglobin 30.2 pg (27-33); Mean Corpuscular Volume 90.2 fl (85-98); Mean Platelet Volume 10.3 fL (7.4-10.4); Monocytes # 0.3 10^3/uL (0.2-0.9); Monocytes % 5.2 %; Neutrophils # 3.58 10^3/uL (1.8-7.7); Nucleated Red Blood Cells % 0 %; Platelet Count 305 10^3/cmm (157-399); Red Cell Distribution Width 13.7 % (12.1-15.1); White Blood Count 4.84 10^3/uL (3.29-11.43)
[2024-07-16 11:28] LABS: Amphetamines Screen Urine Negative (Negative); Barbiturates Screen Urine Negative (Negative); Benzodiazepines Screen Urine Negative (Negative); Cocaine Screen Urine Negative (Negative); Opiate Screen Urine Negative (Negative); PCP Screen Urine Negative (Negative); THC Screen Urine Positive (Negative)
[2024-07-16 12:04] LABS: Alanine Aminotransferase 11 U/L (0-33); Albumin Level 4.3 g/dL (3.5-5.2); Alkaline Phosphatase 72 U/L (35-105); Anion Gap 16.9 (5-19); Aspartate Amino Transferase 18 U/L (0-32); Blood Urea Nitrogen 11 mg/dL (8-23); Calcium 9.1 mg/dL (8.5-10.5); Carbon Dioxide 24 mmol/L (22-29); Chloride 100 mmol/L (98-107); Creatinine Clr Calc Pharmacy 66.8206; Globulin 2.7 g/dL (1.3-4.6); Glomerular Filtration Rate 98.8 mL/min (90-130); Glucose 126 mg/dL (65-115); Osmolality Calculated 285 mOsm/kg (285-295); Potassium 3.9 mmol/L (3.5-5.1); Sodium 137 mmol/L (136-145); Thyroid Stimulating Hormone 2.26 uIU/mL (0.27-4.20); Total Bilirubin 0.3 mg/dL (0.15-1.2)
[2024-07-16 12:24] LABS: Acetaminophen < 5.0 ug/mL (10-30); Alcohol Level < 10 mg/dL (0-10); Salicylate < 0.3 mg/dL (3-10)
[2024-07-16 12:36] VITALS: PULSE 83; O2SAT 97
[2024-07-16 13:32] VITALS: PULSE 88; O2SAT 100
[2024-07-16 13:49] VITALS: BP 137/82; PULSE 95; O2SAT 100
--- NOTE | 2024-07-16 14:19 | PC.NURSE ---
this nurse educated patient on policy/procedure of psychiatric evaluation/seeking placement.
--- NOTE | 2024-07-16 14:21 | PC.NURSE ---
96 HOUR PAPERWORK GIVEN WITH NAHED QUINTANILLA RN PRESENT. PATIENT RIPPED PAPERWORK FROM NURSES HAND.
--- NOTE | 2024-07-16 14:27 | P.NPUCON_ITS ---
Providers/Reason for Consult 2 Primary Care Provider: Sharyn Guerrero, Psych Consult HPI History of Present Illness Conchis Vickers is a 69 year old female who presented to the emergency department with the following report: Chief Complaint: Anxiety Stated Complaint: weakness Time Seen by Provider: 07/16/24 10:07 Source: patient Mode of arrival: ambulatory Limitations: no limitations History of Present Illness: 69-year-old female who states that been having some constipation states with her bowels been full. She is also been having some paranoia states she feels likely from people going through her mail and even people going through her house. She states she does take THC every night but has been doing that for years states she denies any SI or HI no history of schizophrenia she does have some flight of ideas here. Psychiatric consult was requested given her presentation and significant concern for paranoia/psychosis. She is unknown to psychiatric services at [facility] through inpatient or outpatient services. She presented today reporting: Chief complaint The patient continues to express concerns about feeling as if she has been drugged, experiencing unusual physical sensations and cognitive disturbances. She also mentions insomnia and difficulty managing her blood pressure. History of the present complaint The patient has been experiencing a sensation terry to being drugged, which began around the start of the month. She has also been dealing with increasing constipation, despite maintaining a high fiber diet and regular consumption of a magnesium supplement she refers to as calm . She noted an unusual loss of flavor in this supplement. She recounted an incident where she felt disoriented and mentally unclear after consuming a small glass of wine, leading her to suspect that the wine may have been tampered with. She also noted a worsening of her constipation in the days following this incident. The patient expressed concerns about potential hacking and theft, both in the digital and physical realms. She believes her computer and phone have been hacked, and that there have been attempts to access her bank account. She also suspects that her mail has been stolen and that items in her apartment have been moved or knocked over, leading her to believe someone has been in her home. She has been using CBD for anxiety, which she finds helpful, and sleep gummies containing THC, which she started using after abdominal surgery. She has recently reduced her intake of these gummies, suspecting they might be contributing to her current symptoms. The patient has a history of depression, for which she was previously treated with medication, including Paxil. However, she has not been on any medication for depression for several years. She also has a history of alcohol consumption, particularly following her divorce 20 years ago, but has since quit drinking. Despite the doctor's attempts to explain the potential effects of THC and the importance of undergoing scans to rule out other causes, the patient remains convinced that her symptoms are a result of someone tampering with her food or drink. She also expressed concerns about undergoing scans due to a family history of cancer, but eventually agreed to have a head and abdominal scan. She has been experiencing severe insomnia and has requested medication for it from her doctor, but has not been prescribed any. She has been self-medicating for this issue, which she claims has also helped with her blood pressure. She has previously been prescribed Meritazepine and Tylenol, but did not find them effective. Mental health history No new information on the patient's mental health history was provided in this segment of the consultation. Social history No new information on the patient's social history was provided in this segment of the consultation. Meds Home Medications and Allergies Home Medications Medication Instructions Recorded Confirmed Last Taken Type cholecalciferol (vitamin D3) 1,250 50,000 unit PO DAILY 07/20/20 07/16/24 08/09/20 History mcg (50,000 unit) capsule lactobacillus combination no.8 3 3,000 mmu cells PO DAILY 07/20/20 07/16/24 08/09/20 History billion cell capsule (Adult Probiotic) levothyroxine 25 mcg capsule 12.5 mcg PO DAILY 07/11/22 07/16/24 Unknown History mirtazapine 15 mg tablet 15 mg PO DAILY 11/29/23 07/16/24 Unknown History Allergies Allergy/AdvReac Type Severity Reaction Status Date / Time No Known Allergies Allergy Verified 11/29/23 15:00 PFSH NPU 2 PFSH: Medical History Colon cancer Stage II Hypertension Hypothyroidism Surgical History H/O right hemicolectomy (~07/2019) History of amputation of finger of left hand 2016 History of colonoscopy with polypectomy (08/10/20) Diverticulosis, repeat in 5 years Family History Mother Stroke Other CAD (coronary artery disease) Cancer Diabetes Hypertension Denies family history of Clotting disorder Dementia Hyperlipidemia Psychiatric illness Chronic kidney disease (CKD) Suicide Anesthesia complication Bleeding disorder Lung disease Social History Smoking and tobacco/nicotine status: never used tobacco/nicotine Alcohol intake: current Alcohol intake frequency: holidays/special occasions only Mental Status Exam 2 MSE Comments: This is a slender older white female with adequate grooming and eye contact. No abnormal movements except for mild psychomotor retardation. Cooperative with exam in mild distress. Speech was mostly normal rate and volume. Mood described as anxious, affect congruent. Thought process linear. Thought content: Patient denied suicidal or homicidal ideation, there were no delusions reported but clear paranoid versus persecutory delusions noted, she denied auditory or visual hallucinations. The patient continues to deny any suicidal ideation or thoughts of violence. She does not report any hallucinations or obsessive-compulsive behaviors. She continues to report feeling out of whack and unable to think straight, which she attributes to being drugged. She also continues to report a sense of paranoia, believing that someone has been entering her apartment and tampering with her belongings and food. Attention and concentration appeared mostly intact and memory was somewhat reliable but none formally tested. He is alert and oriented times person and place. Insight and judgment are limited and definitely impacted by her paranoia and impulse control also limited versus impaired secondary to her holding to some paranoid beliefs. Vitals/I&O/Wt Last Vital Signs Temp 97.4 F L 07/16/24 09:58 Pulse 95 07/16/24 13:49 Resp 23 H 07/16/24 11:19 BP 137/82 07/16/24 13:49 Pulse Ox 100 07/16/24 13:49 O2 Del Method Room Air 07/16/24 09:58 Weight last 48 hrs Weight 58.967 kg Data NPU 07/16/24 10:27 07/16/24 10:27 A&P Assessment and plan (1) Hypothyroidism: (2) Colon cancer: (3) Paranoia: (4) Cannabis use disorder: (5) Anxiety: (6) Depression: Plan This is a 69-year-old white female who endorsed a long history of anxiety and some depression but denying history of suicidal levels of depression who presents with significant paranoia and fixed beliefs about someone somehow drugging her without any evidence other than her feeling. The patient's multifaceted symptomatology persists, including somatic complaints, cognitive dysfunction, and paranoid ideation. She attributes these symptoms to substance intoxication, possibly by someone entering her apartment. However, she also acknowledges using THC and CBD, which could potentially contribute to her symptoms. She has a history of depression and anxiety, but has discontinued pharmacotherapy for these conditions for several years reporting that the Remeron she takes this for sleep alone but ineffective. The patient also expresses concerns regarding her insomnia and hypertension, which she has been managing with THC and CBD. 1. Continue current medication. Would recommend an antipsychotic like Invega or Abilify could also go with low-dose Zyprexa. 2. Discontinue use of cannabis completely. 3. Patient has no significant supports and is fairly convinced of the veracity of her beliefs that people are going into her home and somehow poisoning her either through her drinks or something else. Would recommend inpatient hospitalization to evaluate the symptoms and hopefully assist in extinguishing the symptoms between discontinuing her cannabis use and the initiation of antipsychotic. 4. The patient has agreed to undergo the recommended imaging studies to rule out any organic etiologies for her symptoms. She has also agreed to consider tapering or discontinuing her use of THC and CBD to see if this alleviates her symptoms. Further psychiatric evaluation is recommended to assess her paranoia and any potential underlying psychiatric disorders. The patient has also expressed dissatisfaction with her current hypnotic and antihypertensive medications, indicating a need for a review and potential titration of her pharmacotherapy regimen. Possibly doxepin or an antipsychotic with some sleep inducing properties. Attestations NPU 2 Medical Necessity Statement*: N/A. Please see primary team note for medical necessity but agree that given her living alone and his new onset paranoia with her behaviors being driven by her paranoia inpatient evaluation in a geriatric facility would be warranted. Coding Level of Care Code Acute Code for [facility] Diagnoses Hypothyroidism E03.9 Colon cancer C18.9 Paranoia F22 Cannabis use disorder F12.90 Anxiety F41.9 Depression F32.A
--- NOTE | 2024-07-16 16:37 | PC.NURSE ---
pt calm and cooperative upon nurse rounding
--- NOTE | 2024-07-16 17:09 | PC.NURSE ---
pt's brother and another family member presents to ED to speak with ED physician, per ED physician to allow family back to speak with pt and take pt personal belongings with them. this nurse assisted family to room 9. PSA present.
[2024-07-16 17:23] LABS: Covid PCR NEGATIVE (Negative); Influenza A NEGATIVE (Negative); Influenza B NEGATIVE (Negative); Respiratory Syncytial Virus Ce NEGATIVE (Negative)
--- NOTE | 2024-07-16 17:25 | PC.NURSE ---
pt family left ER with pt belongings
--- NOTE | 2024-07-16 18:38 | PC.NURSE ---
CUTTING ROOM SUPERVISOR, NAHED BARAHONA RN, SERVED 96 HOUR PAPERWORK WITH DOROTA RODRIGUEZ RN.
--- NOTE | 2024-07-16 18:48 | PC.NURSE ---
[facility] accepted patient for tomorrow after 9am per Linette.
[2024-07-16 20:05] VITALS: BP 134/83; PULSE 80; O2SAT 97
[2024-07-16] MEDS: temazepam 15 mg Capsule PO (21:51)
[2024-07-17] MEDS: polyethylene glycol 3350 Pkt 17 gm PO (06:04)
[2024-07-17 06:06] VITALS: BP 132/79; PULSE 71; O2SAT 97
--- NOTE | 2024-07-17 10:10 | PC.NURSE ---
report called to JALYN Hanson at [facility].
[2024-07-17 10:11] VITALS: BP 127/85; PULSE 82; RESP 16; O2SAT 95
[2024-07-17 13:07] VITALS: BP 151/80; PULSE 74; RESP 16; O2SAT 96
== END 2024-07-17 13:16 ==
PROVIDERS: Emergency Provider Emergency Medicine; PCP Family Medicine
DX: F41.9 Anxiety disorder, unspecified (principal); Z11.52 Encounter for screening for COVID-19; I10 Essential (primary) hypertension; Z85.038 Personal history of other malignant neoplasm of large intestine
CPT/HCPCS: 0241U; 70450; 74018; 80053; 80306; 80307; 81001; 84443; 85025; 93005; 99285

== ENCOUNTER 2024-08-20 10:49 | Emergency (ER) | payer MEDICARE, SELFPAY ==
[2024-08-20 10:51] VITALS: BP 160/82; PULSE 87; RESP 16; TEMP 36.6; O2SAT 100; BMI 18.6
--- NOTE | 2024-08-20 10:52 | ECG_ITS ---
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
--- NOTE | 2024-08-20 11:10 | ED.C_ITS ---
HPI - Psych 2 General: Chief Complaint: Psychiatric Symptoms Stated Complaint: MHE Time Seen by Provider: 08/20/24 10:51 Source: patient Mode of arrival: ambulatory Limitations: no limitations History of Present Illness: 69-year-old female with a history of par anoia along with depression anxiety she has been admitted [facility] past for psychosis. She states she has been feeling a lot more paranoid states the TV is telling her things she believes that the TV is telling her Trump is going to get assassinated. Patient voluntarily wants to be admitted again she states she is feeling unsafe due to her paranoia Associated symptoms: Deny depression Related Data Home Medications Medication Instructions Recorded Confirmed cholecalciferol (vitamin D3) 1,250 50,000 unit PO DAILY 07/20/20 08/20/24 mcg (50,000 unit) capsule levothyroxine 25 mcg capsule 12.5 mcg PO DAILY 07/11/22 08/20/24 mirtazapine 15 mg tablet 15 mg PO DAILY 11/29/23 08/20/24 trazodone 50 mg tablet 50 mg PO QPM 08/20/24 08/20/24 Allergies Allergy/AdvReac Type Severity Reaction Status Date / Time No Known Allergies Allergy Verified 11/29/23 15:00 Review of Systems 2 Const: Denies: fever(s), chills, body aches or change in appetite ENMT: Denies: throat pain or dental pain Card: Denies: chest pain Resp: Denies: dyspnea GI: Denies: abdominal pain, nausea, vomiting or diarrhea Musc: Denies: neck pain or back pain Skin/Breast: Denies: rash Neuro: Denies: headache(s) Psych: Reports: paranoia; Denies: depression PFSH ED 2 PFSH: Medical History Psychiatric care Colon cancer Stage II Hypothyroidism Hypertension Surgical History H/O right hemicolectomy (~07/2019) History of amputation of finger of left hand 2016 History of colonoscopy with polypectomy (08/10/20) Diverticulosis, repeat in 5 years Family History Mother Stroke Other CAD (coronary artery disease) Cancer Diabetes Hypertension Denies family history of Clotting disorder Dementia Hyperlipidemia Psychiatric illness Chronic kidney disease (CKD) Suicide Anesthesia complication Bleeding disorder Lung disease Social History Smoking and tobacco/nicotine status: never used tobacco/nicotine Alcohol intake: current Alcohol intake frequency: holidays/special occasions only Physical Exam 2 Const: COMMON NORMALS: no acute distress, patient oriented x3 and healthy appearing HENMT: COMMON NORMALS: normocephalic and atraumatic HEAD & SCALP: n ormocephalic and atraumatic Neck/C-Spine: COMMON NORMALS: full ROM and supple Chest: COMMONS NORMALS: normal inspection of the chest Resp: COMMON NORMALS: normal respiratory effort Cardio: COMMON NORMALS: regular rate, regular rhythm and No murmurs present (Cardio) RATE: regular rate RHYTHM: regular rhythm Extremity: COMMON NORMALS: normal to inspection and full ROM Neuro: COMMON NORMALS: patient oriented x3, moves all extremities and no focal motor deficits Psych: COMMON NORMALS: mental status grossly normal and cooperative Skin: COMMON NORMALS: no rashes or lesions noted and no wounds GENERAL SKIN EXAM: no rashes or lesions noted Course 2 Vital Signs: Vital signs: Vital Signs Temperature 97.9 F 08/20/24 10:51 Pulse Rate 94 08/20/24 18:28 Respiratory Rate 16 08/20/24 10:51 Blood Pressure 139/79 08/20/24 18:28 Pulse Oximetry 95 08/20/24 18:28 Oxygen Delivery Me thod Room Air 08/20/24 18:28 MDM - Psych Medical Decision Making Patient presents with paranoia along with acute psychosis she is medically cleared she is excepted at [facility] will transfer her there due to [facility] availability Medical Records I reviewed the patient's medical records. Lab Data I reviewed the patient's lab results. 08/20/24 11:10 08/20/24 16:38 Laboratory Results WBC 6.32 10^3/uL (3.29-11.43) 08/20/24 11:10 RBC 4.29 10^6/uL (3.85-5.65) 08/20/24 11:10 Hgb 12.80 g/dL (11.27-16.99) 08/20/24 11:10 Hct 38.0 % (36-47) 08/20/24 11:10 MCV 88.6 fl (85-98) 08/20/24 11:10 MCH 29.8 pg (27-33) 08/20/24 11:10 MCHC 33.7 g/dL (30-55) 08/20/24 11:10 RDW 13.6 % (12.1-15.1) 08/20/24 11:10 Plt Count 377 10^3/cmm (157-399) 08/20/24 11:10 MPV 9.2 fL (7.4-10.4) 08/20/24 11:10 Neut % (Auto) 73.6 % 08/20/24 11:10 Lymph % (Auto) 18.2 % 08/20/24 11:10 Owen % (Auto) 7.1 % 08/20/24 11:10 Eos % (Auto) 0.3 % 08/20/24 11:10 Baso % (Auto) 0.5 % 08/20/24 11:10 Neut # (Auto) 4.65 10^3/uL (1.8-7.7) 08/20/24 11:10 Lymph # (Auto) 1.2 10^3/uL (0.8-4.8) 08/20/24 11:10 Owen # (Auto) 0.5 10^3/uL (0.2-0.9) 08/20/24 11:10 Eos # (Auto) 0.0 10^3/uL (0.0-0.8) 08/20/24 11:10 Baso # (Auto) 0.0 10^3/uL (0.0-0.1) 08/20/24 11:10 Nucleated RBC % (auto) 0 % 08/20/24 11:10 Nucleated RBCs # 0.0 /100WBC 08/20/24 11:10 Sodium 132 mmol/L (136-145) L 08/20/24 16:38 Potassium 4.0 mmol/L (3.5-5.1) 08/20/24 11:10 Chloride 90 mmol/L (98-107) L 08/20/24 11:10 Carbon Dioxide 26 mmol/L (22-29) 08/20/24 11:10 Anion Gap 16.0 (5-19) 08/20/24 11:10 BUN 14 mg/dL (8-23) 08/20/24 11:10 Creatinine 0.5 mg/dL (0.5-0.9) 08/20/24 11:10 GFR Calculation 122.0 mL/min (90-130) 08/20/24 11:10 Glucose 99 mg/dL (65-115) 08/20/24 11:10 Calculated Osmolality 267 mOsm/kg (285-295) L 08/20/24 11:10 Calcium 9.1 mg/dL (8.5-10.5) 08/20/24 11:10 Total Bilirubin 0.5 mg/dL (0.15-1.2) 08/20/24 11:10 AST 29 U/L (0-32) 08/20/24 11:10 ALT 19 U/L (0-33) 08/20/24 11:10 Alkaline Phosphatase 73 U/L (35-105) 08/20/24 11:10 Total Protein 7.3 g/dL (6.6-8.7) 08/20/24 11:10 Albumin 4.2 g/dL (3.5-5.2) 08/20/24 11:10 Globulin 3.1 g/dL (1.3-4.6) 08/20/24 11:10 TSH 2.96 uIU/mL (0.27-4.20) 08/20/24 11:10 Urine Color Yellow (Yellow) 08/20/24 12:38 Urine Appearance Clear (CLEAR) 08/20/24 12:38 Urine pH 6.0 (5-7) 08/20/24 12:38 Ur Specific [place] 1.007 (1.005-1.030) 08/20/24 12:38 Urine Protein Negative (Negative) 08/20/24 12:38 Urine Glucose (UA) Negative (Normal) 08/20/24 12:38 Urine Ketones 1+ (Negative) H 08/20/24 12:38 Urine Blood Negative (Negative) 08/20/24 12:38 Urine Nitrate Negative (Negative) 08/20/24 12:38 Urine Bilirubin Negative (Negative) 08/20/24 12:38 Urine Urobilinogen 0.2 mg/dL (Negative) 08/20/24 12:38 Ur Leukocyte Esterase Negative (Negative) 08/20/24 12:38 Urine RBC 0-2 /hpf (0-2) 08/20/24 12:38 Urine WBC 0-5 /hpf (0-5) 08/20/24 12:38 Ur Squamous Epith Cells 0-5 /hpf (0-5) 08/20/24 12:38 Amorphous Sediment Not Reportable 08/20/24 12:38 Urine Bacteria None seen /hpf (NONE) 08/20/24 12:38 Hyaline Casts 0-4 /lpf H 08/20/24 12:38 Salicylates < 0.3 mg/dL (3-10) L 08/20/24 11:10 Urine Opiates Screen Negative ng/mL (Negative) 08/20/24 12:38 Acetaminophen < 5.0 ug/mL (10-30) L 08/20/24 11:10 Ur Barbiturates Screen Negative ng/mL (Negative) 08/20/24 12:38 Ur Phencyclidine Scrn Negative ng/mL (Negative) 08/20/24 12:38 Ur Amphetamines Screen Negative ng/mL (Negative) 08/20/24 12:38 U Benzodiazepines Scrn Negative ng/mL (Negative) 08/20/24 12:38 Urine Cocaine Screen Negative ng/mL (Negative) 08/20/24 12:38 U Marijuana (THC) Screen Negative ng/mL (Negative) 08/20/24 12:38 Ethyl Alcohol 12 mg/dL (0-10) H 08/20/24 11:10 Coronavirus (PCR) Negative (Negative) 08/20/24 12:27 Influenza A (PCR) Negative (Negative) 08/20/24 12:27 Influenza Type B (PCR) Negative (Negative) 08/20/24 12:27 RSV (PCR) Negative (Negative) 08/20/24 12:27 All radiology interpretation(s) finalized by discharge EKG Data EKG 1: I personally reviewed and interpreted this EKG as follows: EKG interpretation date: 08/20/24 EKG interpretation time: 12:46 Interpretation: nsr hr [address] elevation qrs 93 qtc 431 Discharge Plan Discharge Patient Disposition: Xfer Psychiatric Hosp Clinical Impression: Paranoia, Acute psychosis Condition: Stable Prescriptions: No Action cholecalciferol (vitamin D3) 1,250 mcg (50,000 unit) capsule 50,000 unit PO DAILY levothyroxine 25 mcg capsule 12.5 mcg PO DAILY mirtazapine 15 mg tablet 15 mg PO DAILY trazodone 50 mg tablet 50 mg PO QPM Referrals: Sharyn Guerrero DO [Primary Care Provider] - Coding Level of Care Code ED Operating Manager for [facility]
[2024-08-20 11:19] LABS: Basophils % 0.5 %; Eosinophils % 0.3 %; Lymphocytes # 1.2 10^3/uL (0.8-4.8); Lymphocytes % 18.2 %; Mean Corpuscular HGB Conc 33.7 g/dL (30-55); Mean Corpuscular Hemoglobin 29.8 pg (27-33); Mean Corpuscular Volume 88.6 fl (85-98); Mean Platelet Volume 9.2 fL (7.4-10.4); Monocytes # 0.5 10^3/uL (0.2-0.9); Monocytes % 7.1 %; Neutrophils # 4.65 10^3/uL (1.8-7.7); Neutrophils % 73.6 %; Nucleated Red Blood Cells % 0 %; Platelet Count 377 10^3/cmm (157-399); Red Blood Count 4.29 10^6/uL (3.85-5.65); Red Cell Distribution Width 13.6 % (12.1-15.1); White Blood Count 6.32 10^3/uL (3.29-11.43)
[2024-08-20 11:49] LABS: Alanine Aminotransferase 19 U/L (0-33); Albumin Level 4.2 g/dL (3.5-5.2); Alcohol Level 12 mg/dL (0-10); Alkaline Phosphatase 73 U/L (35-105); Aspartate Amino Transferase 29 U/L (0-32); Blood Urea Nitrogen 14 mg/dL (8-23); Calcium 9.1 mg/dL (8.5-10.5); Carbon Dioxide 26 mmol/L (22-29); Chloride 90 mmol/L (98-107); Creatinine Clr Calc Pharmacy 66.8206; Globulin 3.1 g/dL (1.3-4.6); Glucose 99 mg/dL (65-115); Osmolality Calculated 267 mOsm/kg (285-295); Sodium 128 mmol/L (136-145); Thyroid Stimulating Hormone 2.96 uIU/mL (0.27-4.20); Total Bilirubin 0.5 mg/dL (0.15-1.2); Total Protein 7.3 g/dL (6.6-8.7)
[2024-08-20 11:53] LABS: Acetaminophen < 5.0 ug/mL (10-30); Salicylate < 0.3 mg/dL (3-10)
--- NOTE | 2024-08-20 12:20 | PC.NURSE ---
96 hour hold rights read and reviewed with patient. Patient verbalized understandings. Copy of rights given to patient.
[2024-08-20 12:55] LABS: Bilirubin Urine Negative (Negative); Blood Urine Negative (Negative); Glucose Urine UA Negative (Normal); Ketones Urine 1+ (Negative); Leukocyte Esterase Urine Negative (Negative); Nitrate Urine Negative (Negative); Protein Urine Negative (Negative); Specific Gravity, Urine 1.007 (1.005-1.030); Urine Appearance Clear (CLEAR); Urine Color Yellow (Yellow); Urobilinogen Urine 0.2 mg/dL (Negative)
[2024-08-20 13:00] LABS: Add Urine Microscopic? YES; Bacteria Urine None Seen /hpf; Hyaline Casts Urine 0-4 /lpf; RBC Urine 0-2 /hpf (0-2); Squamous Epithelial Cell Urine 0-5 /hpf (0-5); WBC Urine 0-5 /hpf (0-5)
[2024-08-20 13:03] LABS: Amphetamines Screen Urine Negative (Negative); Barbiturates Screen Urine Negative (Negative); Benzodiazepines Screen Urine Negative (Negative); Cocaine Screen Urine Negative (Negative); Opiate Screen Urine Negative (Negative); PCP Screen Urine Negative (Negative); THC Screen Urine Negative (Negative)
[2024-08-20] MEDS: diphenhydrAMINE 50 mg Capsule PO (13:05)
[2024-08-20 13:39] LABS: Covid PCR NEGATIVE (Negative); Influenza A NEGATIVE (Negative); Influenza B NEGATIVE (Negative); Respiratory Syncytial Virus Ce NEGATIVE (Negative)
[2024-08-20] MEDS: sodium chloride 0.9% 1,000 ML 999 ML IV (15:35)
[2024-08-20 18:00] LABS: Sodium 132 mmol/L (136-145)
[2024-08-20 18:28] VITALS: BP 139/79; PULSE 94; O2SAT 95
[2024-08-20 19:48] VITALS: BP 126/62; PULSE 83; RESP 18; O2SAT 99
[2024-08-20 19:50] VITALS: TEMP 36.6
[2024-08-20 22:21] VITALS: BP 151/84; PULSE 83; RESP 18; O2SAT 99
[2024-08-21 00:28] VITALS: BP 136/87; PULSE 80; RESP 16; O2SAT 98
[2024-08-21] MEDS: ibuprofen 600 mg Tablet PO (06:01)
[2024-08-21 06:02] VITALS: BP 144/84; PULSE 82; RESP 16; O2SAT 97
== END 2024-08-21 09:12 ==
PROVIDERS: Emergency Provider Emergency Medicine; PCP Family Medicine
DX: F22 Delusional disorders (principal); F23 Brief psychotic disorder; Z11.52 Encounter for screening for COVID-19
CPT/HCPCS: 0241U; 36415; 80053; 80306; 80307; 81001; 84295; 84443; 85025; 93005; 99285; J7030; Q0163

== ENCOUNTER 2025-07-16 14:08 | Emergency (ER) | payer MEDICARE, SELFPAY ==
[2025-07-16 14:10] VITALS: PULSE 104; RESP 16; TEMP 36.7; O2SAT 97; BMI 22.2
--- NOTE | 2025-07-16 14:19 | ECG_ITS ---
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 Measurements Intervals [place] Rate: 112 P: 74 UT: 128 QRS: 92 QRSD: 85 T: 54 QT: 338 QTc: 462 Interpretive Statements SINUS TACHYCARDIA BORDERLINE RIGHT AXIS DEVIATION [QRS AXIS > 90] Compared to ECG 08/20/2024 12:46:24 Sinus rhythm no longer present Electronically Signed On 07-18-2025 12:02:47 CDT by Anirudh Patel M.D. [id number]
--- NOTE | 2025-07-16 14:38 | W.ED.PSYCHS ---
HPI - Psych General: Chief Complaint: Psychiatric Symptoms Stated Complaint: 96 Time Seen by Provider: 07/16/25 14:19 History of Present Illness: 70-year-old female presents to the emergency room with [facility] department under a 96-hour hold. She had been resident of a assisted living/halfway she was evicted from there because of behavioral issues. Family had a 96-hour hold filled out. Interestingly the family's affidavits match quite well with what the patient tells me is going on. She has paranoid delusions she tells me that she was in some kind of online forearm for [employer] only someone else got into it made threatening remarks now they are trying to harm her by putting chemicals in her she also thinks the FBI is after her. She is elusive when I have asked her about being evicted from the halfway. She denies sleeping in cars. Family is very worried because her behaviors been erratic and paranoid and delusional they are not able to adequately care for her. There is report of aggressive behavior at the halfway although she has not been aggressive with any of the staff in the emergency room. She denies any recent illnesses. Related Data Home Medications ?Medication ?Instructions ?Recorded ?Confirmed cholecalciferol (vitamin D3) 1,250 50,000 unit PO DAILY 07/20/20 10/09/24 mcg (50,000 unit) capsule mirtazapine 15 mg tablet 15 mg PO DAILY 11/29/23 08/20/24 trazodone 50 mg tablet 50 mg PO QPM 08/20/24 08/20/24 amlodipine 5 mg tablet 5 mg PO DAILY 10/09/24 buspirone 5 mg tablet 5 mg PO TID 10/09/24 10/09/24 levothyroxine 25 mcg capsule 25 mcg PO DAILY 10/09/24 10/09/24 quetiapine 200 mg tablet,extended 200 mg PO DAILY 10/09/24 10/09/24 release 24 hr Allergies Allergy/AdvReac Type Severity Reaction Status Date / Time No Known Allergies Allergy Verified 10/09/24 08:48 Review of Systems Const: Denies: fever(s) or chills Card: Denies: chest pain Resp: Denies: dyspnea GI: Denies: abdominal pain : Denies: dysuria, urinary frequency or urinary urgency Musc: Denies: neck pain or back pain Skin/Breast: Denies: rash PFSH ED PFSH: Medical History Psychiatric care Colon cancer Stage II Hypothyroidism Hypertension Surgical History H/O right hemicolectomy (~07/2019) History of amputation of finger of left hand 2016 History of colonoscopy with polypectomy (08/10/20) Diverticulosis, repeat in 5 years Family History Mother Stroke Other CAD (coronary artery disease) Cancer Diabetes Hypertension Denies family history of Clotting disorder Dementia Hyperlipidemia Psychiatric illness Chronic kidney disease (CKD) Suicide Anesthesia complication Bleeding disorder Lung disease Social History Smoking and tobacco/nicotine status: never used tobacco/nicotine Alcohol intake: current Alcohol intake frequency: holidays/special occasions only Physical Exam Const: GENERAL APPEARANCE: cooperative ORIENTATION/CONSCIOUSNESS: Yes awake HENMT: COMMON NORMALS: normocephalic, atraumatic and hearing grossly normal bilaterally HEAD & SCALP: normocephalic and atraumatic Resp: COMMON NORMALS: normal respiratory effort, No retractions, No use of accessory muscles and clear to auscultation bilaterally AUSCULTATION: clear to auscultation bilaterally Cardio: COMMON NORMALS: regular rate, regular rhythm and No murmurs present (Cardio) RATE: regular rate RHYTHM: regular rhythm GI: COMMON NORMALS: Soft to palpation and No hepatosplenomegaly present AUSCULTATION: Yes normoactive bowel sounds PALPATION: Yes Soft to palpation, No Tenderness to palpation present (GI), No Guarding due to palpation present (GI) and Yes No hepatosplenomegaly present Extremity: COMMON NORMALS: normal to inspection, capillary refill normal, no clubbing, cyanosis or edema, no calf tenderness and no pedal edema Skin: COMMON NORMALS: no rashes or lesions noted GENERAL SKIN EXAM: no rashes or lesions noted Course Vital Signs: Vital signs: Vital Signs Temperature 98.1 F 07/16/25 14:10 Pulse Rate 104 H 07/16/25 14:10 Respiratory Rate 16 07/16/25 14:10 Pulse Oximetry 97 10/16/25 14:10 Oxygen Delivery Me thod Room Air 07/16/25 14:10 MDM - Psych Medical Decision Making Patient has paranoid delusions she is on a 96-hour hold do think she would benefit from inpatient geriatric psychiatric care. Medical screening done at this point there is no acute medical diagnosis to prevent her from being inpatient and [facility] staff is began to look for appropriate receiving facilities. Medical Records I reviewed the patient's medical records. Lab Data I reviewed the patient's lab results. 07/16/25 14:57 07/16/25 14:57 Laboratory Results WBC 6.28 10^3/uL (3.29-11.43) 07/16/25 14:57 RBC 3.81 10^6/uL (3.85-5.65) L 07/16/25 14:57 Hgb 11.00 g/dL (11.27-16.99) L 07/16/25 14:57 Hct 33.7 % (36-47) L 07/16/25 14:57 MCV 88.5 fl (85-98) 07/16/25 14:57 MCH 28.9 pg (27-33) 07/16/25 14:57 MCHC 32.6 g/dL (30-55) 07/16/25 14:57 RDW 14.4 % (12.1-15.1) 07/16/25 14:57 Plt Count 316 10^3/cmm (157-399) 07/16/25 14:57 MPV 10.0 fL (7.4-10.4) 07/16/25 14:57 Neut % (Auto) 77.3 % 07/16/25 14:57 Lymph % (Auto) 14.6 % 07/16/25 14:57 [place] % (Auto) 5.9 % 07/16/25 14:57 Eos % (Auto) 1.3 % 07/16/25 14:57 Baso % (Auto) 0.6 % 07/16/25 14:57 Neut # (Auto) 4.85 10^3/uL (1.8-7.7) 07/16/25 14:57 Lymph # (Auto) 0.9 10^3/uL (0.8-4.8) 07/16/25 14:57 [place] # (Auto) 0.4 10^3/uL (0.2-0.9) 07/16/25 14:57 Eos # (Auto) 0.1 10^3/uL (0.0-0.8) 07/16/25 14:57 Baso # (Auto) 0.0 10^3/uL (0.0-0.1) 07/16/25 14:57 Nucleated RBC % (auto) 0 % 07/16/25 14:57 Nucleated RBCs # 0.0 /100WBC 07/16/25 14:57 Sodium 139 mmol/L (136-145) 07/16/25 14:57 Potassium 4.1 mmol/L (3.5-5.1) 07/16/25 14:57 Chloride 101 mmol/L (98-107) 07/16/25 14:57 Carbon Dioxide 23 mmol/L (22-29) 07/16/25 14:57 Anion Gap 19.1 (5-19) H 07/16/25 14:57 BUN 15 mg/dL (8-23) 07/16/25 14:57 Creatinine 0.6 mg/dL (0.5-0.9) 07/16/25 14:57 GFR Calculation Not Reportable 07/16/25 14:57 Glucose 100 mg/dL (65-115) 07/16/25 14:57 Calculated Osmolality 289 mOsm/kg (285-295) 07/16/25 14:57 Calcium 9.1 mg/dL (8.5-10.5) 07/16/25 14:57 Total Bilirubin 0.4 mg/dL (0.15-1.2) 07/16/25 14:57 AST 20 U/L (0-32) 07/16/25 14:57 ALT 11 U/L (0-33) 07/16/25 14:57 Alkaline Phosphatase 93 U/L (35-105) 07/16/25 14:57 Total Protein 7.0 g/dL (6.6-8.7) 07/16/25 14:57 Albumin 4.1 g/dL (3.5-5.2) 07/16/25 14:57 Globulin 2.9 g/dL (1.3-4.6) 07/16/25 14:57 TSH 2.62 uIU/mL (0.27-4.20) 07/16/25 14:57 Urine Color Yellow (Yellow) 07/16/25 15:42 Urine Appearance Clear (CLEAR) 07/16/25 15:42 Urine pH 7.5 (5-7) 07/16/25 15:42 Ur Specific [place] 1.010 (1.005-1.030) 07/16/25 15:42 Urine Protein Negative (Negative) 07/16/25 15:42 Urine Glucose (UA) Negative (Normal) 07/16/25 15:42 Urine Ketones Negative (Negative) 07/16/25 15:42 Urine Blood Negative (Negative) 07/16/25 15:42 Urine Nitrate Negative (Negative) 07/16/25 15:42 Urine Bilirubin Negative (Negative) 07/16/25 15:42 Urine Urobilinogen 0.2 mg/dL (Negative) 07/16/25 15:42 Ur Leukocyte Esterase Trace (Negative) A 07/16/25 15:42 Urine RBC 0-2 /hpf (0-2) 07/16/25 15:42 Urine WBC 0-5 /hpf (0-5) 07/16/25 15:42 Ur Squamous Epith Cells 0-5 /hpf (0-5) 07/16/25 15:42 Amorphous Sediment Not Reportable 07/16/25 15:42 Urine Bacteria None seen /hpf (NONE) 07/16/25 15:42 Hyaline Casts 0.40 /lpf 07/16/25 15:42 Salicylates 0.5 mg/dL (3-10) L 07/16/25 14:57 Urine Opiates Screen Negative ng/mL (Negative) 07/16/25 15:42 Acetaminophen < 5.0 ug/mL (10-30) L 07/16/25 14:57 Ur Barbiturates Screen Negative ng/mL (Negative) 07/16/25 15:42 Ur Phencyclidine Scrn Negative ng/mL (Negative) 07/16/25 15:42 Ur Amphetamines Screen Negative ng/mL (Negative) 07/16/25 15:42 U Benzodiazepines Scrn Negative ng/mL (Negative) 07/16/25 15:42 Urine Cocaine Screen Negative ng/mL (Negative) 07/16/25 15:42 U Marijuana (THC) Screen Negative ng/mL (Negative) 07/16/25 15:42 Ethyl Alcohol < 10 mg/dL (0-10) 07/16/25 14:57 No radiology studies performed this visit EKG Data EKG 1: I personally reviewed and interpreted this EKG as follows: EKG interpretation date: 07/16/25 Prior EKG tracings: available for review Interpretation: EKG 07/16/2025 1442 sinus tachycardia rate of 112. No acute ST changes noted. Compared to EKG 08/20/2024 sinus rhythm no longer present no acute changes. Discharge Plan Discharge Patient Disposition: Xfer Psychiatric Hosp Clinical Impression: Paranoia, Acute psychosis, Depression, Cognitive dysfunction Condition: Stable Referrals: Sharyn Guerrero DO [Primary Care Provider, BRUSHER OPERATOR] Print Language: Taiwanese Coding Level of Care Code ED Civil Design Technician for Juni Dumont
--- NOTE | 2025-07-16 14:46 | PC.NURSE ---
Pts 96 hour hold rights were read at this time. Security present
[2025-07-16 15:19] LABS: Hematocrit 33.7 % (36-47); Hemoglobin 11.00 g/dL (11.27-16.99); Mean Corpuscular HGB Conc 32.6 g/dL (30-55); Mean Corpuscular Hemoglobin 28.9 pg (27-33); Mean Corpuscular Volume 88.5 fl (85-98); Nucleated Red Blood Cells % 0 %; Platelet Count 316 10^3/cmm (157-399); Red Blood Count 3.81 10^6/uL (3.85-5.65); White Blood Count 6.28 10^3/uL (3.29-11.43)
[2025-07-16 15:49] LABS: Alanine Aminotransferase 11 U/L (0-33); Albumin Level 4.1 g/dL (3.5-5.2); Alkaline Phosphatase 93 U/L (35-105); Anion Gap 19.1 (5-19); Aspartate Amino Transferase 20 U/L (0-32); Blood Urea Nitrogen 15 mg/dL (8-23); Calcium 9.1 mg/dL (8.5-10.5); Carbon Dioxide 23 mmol/L (22-29); Chloride 101 mmol/L (98-107); Creatinine Clr Calc Pharmacy 70.4847; Globulin 2.9 g/dL (1.3-4.6); Glucose 100 mg/dL (65-115); Osmolality Calculated 289 mOsm/kg (285-295); Potassium 4.1 mmol/L (3.5-5.1); Salicylate 0.5 mg/dL (3-10); Sodium 139 mmol/L (136-145); Thyroid Stimulating Hormone 2.62 uIU/mL (0.27-4.20); Total Protein 7.0 g/dL (6.6-8.7)
[2025-07-16 15:52] LABS: Acetaminophen < 5.0 ug/mL (10-30); Alcohol Level < 10 mg/dL (0-10)
[2025-07-16 15:58] LABS: Glucose Urine UA Negative (Normal); Nitrate Urine Negative (Negative); Specific Gravity, Urine 1.010 (1.005-1.030)
[2025-07-16 16:05] LABS: PCP Screen Urine Negative (Negative)
[2025-07-16 16:07] LABS: Add Urine Microscopic? YES
--- NOTE | 2025-07-16 16:59 | XRR_ITS ---
PROCEDURE INFORMATION: Exam: XR Chest Exam date and time: 07/16/2025 6:08 PM Age: 70 years old Clinical indication: Screening exam; Other screening TECHNIQUE: Imaging protocol: Radiologic exam of the chest. Views: 1 view. Total images: 3 COMPARISON: 1. CT ch abdpel wo/w [id number] 09/27/2023 1:[address] chest abdpel w/*[id number] 01/19/2023 11:45 AM 3. CR XR chest 1V portable [id number] 10/07/2021 10:[address] chest abdpel w/*[id number] 07/30/2020 1:23 PM FINDINGS: Lungs: Reticular interstitial thickening, likely chronic, without focal consolidation. Lungs hyperinflated with flattening of the diaphragms. Generalized increased lung lucency, consistent with air trapping. Pleural spaces: No significant pleural effusion. No pneumothorax. Heart/Mediastinum: Normal heart size. Vasculature: Moderate aortic atherosclerotic calcification. Bones/joints: Moderate generalized degenerative changes of the vertebral column, including multilevel osteophytes, degenerative disc height loss, and facet arthrosis, consistent with patient age. Qualitative demineralization of bones (osteopenia) limiting evaluation for nondisplaced fractures. No intrinsic osseous abnormality identified. Soft tissues: Soft tissues are normal as visualized, demonstrating no masses or induration. XR/XR chest 1V portable [id number] IMPRESSION: 1. No acute chest pathology identified. 2. Fine reticular interstitial thickening, likely chronic, without focal consolidation. Appearance most consistent with chronic fibrotic interstitial change, age-related/nonspecific. Recommend correlation with clinical history; pulmonary function tests if clinically indicated. 3. Hyperinflated lungs with air trapping suggesting obstructive airways disease. Clinical correlation recommended for further evaluation. 4. Moderate age-appropriate degenerative spinal changes, with other chronic/non-acute findings as described above. COMMENTS: Qualitative demineralization of bones (osteopenia) limiting evaluation for nondisplaced fractures.
[2025-07-16 17:52] VITALS: PULSE 105; RESP 18; O2SAT 97
--- NOTE | 2025-07-17 | PC.NURSE ---
pt requested night time meds. this nurse obtained verbal order from dr lucia. this nurse pulled pts meds from [facility] and took them to pt. pt states i can't take the seroquel right now because i don't go to sleep until early in the morning . pt stated she'll let me know when she's ready to take the seroquel.
[2025-07-17 03:41] LABS: Respiratory Syncytial Virus Ce NEGATIVE (Negative); SARS-CoV-2 PCR NEGATIVE (Negative)
[2025-07-17 06:50] VITALS: BP 109/62; PULSE 84; RESP 16; O2SAT 97
--- NOTE | 2025-07-17 08:33 | PC.NURSE ---
per MD Deepika reviewing pt chart needs reconciled med list faxed to . geothermal hvac technician and ED UC notified.
--- NOTE | 2025-07-17 09:21 | PC.NURSE ---
report called to JALYN Verdugo at [facility] in [place], [place]. Report # . Room# 4N
--- NOTE | 2025-07-17 12:45 | W.ED.PSYCHS ---
Documented by User: Sloane Solares MD 07/17/25 12:47 HPI - Psych General: Chief Complaint: Psychiatric Symptoms Stated Complaint: 96 Time Seen by Provider: 07/16/25 14:19 History of Present Illness: 70-year-old female who is on a 96-hour hold and being transferred to [place] this afternoon once transport is available. When I visit with her she is sitting up in her bed. She says she does not want to go to [facility] she wants to go to [facility] but she is already been accepted there. She is eating. No complaints but she does request her BuSpar. Related Data Home Medications ?Medication ?Instructions ?Recorded ?Confirmed buspirone 5 mg tablet 5 mg PO TID 10/09/24 07/17/25 levothyroxine 25 mcg capsule 25 mcg PO DAILY 10/09/24 07/17/25 quetiapine 200 mg tablet,extended 200 mg PO DAILY 10/09/24 07/17/25 release 24 hr (Seroquel XR) Allergies Allergy/AdvReac Type Severity Reaction Status Date / Time No Known Allergies Allergy Verified 10/09/24 08:48 Review of Systems Narrative: Constitutional symptoms: Negative except as documented in HPI. Skin symptoms: Negative except as documented in HPI. Eye symptoms: Negative except as documented in HPI. ENMT symptoms: Negative except as documented in HPI. Respiratory symptoms: Negative except as documented in HPI. Cardiovascular symptoms: Negative except as documented in HPI. Gastrointestinal symptoms: Negative except as documented in HPI. Genitourinary symptoms: Negative except as documented in HPI. Musculoskeletal symptoms: Negative except as documented in HPI. Neurologic symptoms: Negative except as documented in HPI. Psychiatric symptoms: Negative except as documented in HPI. Endocrine symptoms: Negative except as documented in HPI. PFS ED PFSH: Medical History (Updated 07/16/25 @ 16:51 by Bill Arana DO) Psychiatric care Colon cancer Stage II Hypothyroidism Hypertension Surgical History H/O right hemicolectomy (~07/2019) History of amputation of finger of left hand 2016 History of colonoscopy with polypectomy (08/10/20) Diverticulosis, repeat in 5 years Family History Mother Stroke Other CAD (coronary artery disease) Cancer Diabetes Hypertension Denies family history of Clotting disorder Dementia Hyperlipidemia Psychiatric illness Chronic kidney disease (CKD) Suicide Anesthesia complication Bleeding disorder Lung disease Social History Smoking and tobacco/nicotine status: never used tobacco/nicotine Alcohol intake: current Alcohol intake frequency: holidays/special occasions only Physical Exam Narrative: EXAM NARRATIVE: General: Alert, no acute distress. Skin: Warm, dry. Head: Normocephalic, atraumatic. Neck: Supple, trachea midline. Eye: Extraocular movements are intact. Ears, nose, mouth and throat: mucosa moist. Cardiovascular: Regular, Normal peripheral perfusion. Respiratory: Lungs are clear to auscultation, respirations are non-labored, breath sounds are equal, Symmetrical chest wall expansion. Gastrointestinal: Soft, Nontender, Non distended Musculoskeletal: Normal ROM, no deformity. Neurological: Alert and oriented, No focal neurological deficit observed. Psychiatric: Cooperative Course Vital Signs: Vital signs: Vital Signs Temperature 98.1 F 07/16/25 14:10 Pulse Rate 93 07/17/25 16:00 Respiratory Rate 17 07/17/25 16:00 Blood Pressure 166/66 07/17/25 16:00 Pulse Oximetry 97 07/17/25 16:00 Oxygen Delivery Me thod Room Air 07/17/25 06:50 [facility] - Psych Medical Decision Making Patient accepted to [facility] in [place]. Awaiting transport. No acute complaints at this time. Assessment and plan: Paranoia Psychosis ?BuSpar ordered. ? Planning for transport Lab Data 07/16/25 14:57 07/16/25 14:57 Radiology Impressions Chest X-Ray 07/16/25 16:59 IMPRESSION: 1. No acute chest pathology identified. 2. Fine reticular interstitial thickening, likely chronic, without focal consolidation. Appearance most consistent with chronic fibrotic interstitial change, age-related/nonspecific. Recommend correlation with clinical history; pulmonary function tests if clinically indicated. 3. Hyperinflated lungs with air trapping suggesting obstructive airways disease. Clinical correlation recommended for further evaluation. 4. Moderate age-appropriate degenerative spinal changes, with other chronic/non-acute findings as described above. COMMENTS: Qualitative demineralization of bones (osteopenia) limiting evaluation for nondisplaced fractures. Laboratory Results WBC 6.28 10^3/uL (3.29-11.43) 07/16/25 14:57 RBC 3.81 10^6/uL (3.85-5.65) L 07/16/25 14:57 Hgb 11.00 g/dL (11.27-16.99) L 07/16/25 14:57 Hct 33.7 % (36-47) L 07/16/25 14:57 MCV 88.5 fl (85-98) 07/16/25 14:57 MCH 28.9 pg (27-33) 07/16/25 14:57 MCHC 32.6 g/dL (30-55) 07/16/25 14:57 RDW 14.4 % (12.1-15.1) 07/16/25 14:57 Plt Count 316 10^3/cmm (157-399) 07/16/25 14:57 MPV 10.0 fL (7.4-10.4) 07/16/25 14:57 Neut % (Auto) 77.3 % 07/16/25 14:57 Lymph % (Auto) 14.6 % 07/16/25 14:57 Sabine % (Auto) 5.9 % 07/16/25 14:57 Eos % (Auto) 1.3 % 07/16/25 14:57 Baso % (Auto) 0.6 % 07/16/25 14:57 Neut # (Auto) 4.85 10^3/uL (1.8-7.7) 07/16/25 14:57 Lymph # (Auto) 0.9 10^3/uL (0.8-4.8) 07/16/25 14:57 Sabine # (Auto) 0.4 10^3/uL (0.2-0.9) 07/16/25 14:57 Eos # (Auto) 0.1 10^3/uL (0.0-0.8) 07/16/25 14:57 Baso # (Auto) 0.0 10^3/uL (0.0-0.1) 07/16/25 14:57 Nucleated RBC % (auto) 0 % 07/16/25 14:57 Nucleated RBCs # 0.0 /100WBC 07/16/25 14:57 Sodium 139 mmol/L (136-145) 07/16/25 14:57 Potassium 4.1 mmol/L (3.5-5.1) 07/16/25 14:57 Chloride 101 mmol/L (98-107) 07/16/25 14:57 Carbon Dioxide 23 mmol/L (22-29) 07/16/25 14:57 Anion Gap 19.1 (5-19) H 07/16/25 14:57 BUN 15 mg/dL (8-23) 07/16/25 14:57 Creatinine 0.6 mg/dL (0.5-0.9) 07/16/25 14:57 GFR Calculation Not Reportable 07/16/25 14:57 Glucose 100 mg/dL (65-115) 07/16/25 14:57 Calculated Osmolality 289 mOsm/kg (285-295) 07/16/25 14:57 Calcium 9.1 mg/dL (8.5-10.5) 07/16/25 14:57 Total Bilirubin 0.4 mg/dL (0.15-1.2) 07/16/25 14:57 AST 20 U/L (0-32) 07/16/25 14:57 ALT 11 U/L (0-33) 07/16/25 14:57 Alkaline Phosphatase 93 U/L (35-105) 07/16/25 14:57 Total Protein 7.0 g/dL (6.6-8.7) 07/16/25 14:57 Albumin 4.1 g/dL (3.5-5.2) 07/16/25 14:57 Globulin 2.9 g/dL (1.3-4.6) 07/16/25 14:57 TSH 2.62 uIU/mL (0.27-4.20) 07/16/25 14:57 Urine Color Yellow (Yellow) 07/16/25 15:42 Urine Appearance Clear (CLEAR) 07/16/25 15:42 Urine pH 7.5 (5-7) 07/16/25 15:42 Ur Specific Gepp 1.010 (1.005-1.030) 07/16/25 15:42 Urine Protein Negative (Negative) 07/16/25 15:42 Urine Glucose (UA) Negative (Normal) 07/16/25 15:42 Urine Ketones Negative (Negative) 07/16/25 15:42 Urine Blood Negative (Negative) 07/16/25 15:42 Urine Nitrate Negative (Negative) 07/16/25 15:42 Urine Bilirubin Negative (Negative) 07/16/25 15:42 Urine Urobilinogen 0.2 mg/dL (Negative) 07/16/25 15:42 Ur Leukocyte Esterase Trace (Negative) A 07/16/25 15:42 Urine RBC 0-2 /hpf (0-2) 07/16/25 15:42 Urine WBC 0-5 /hpf (0-5) 07/16/25 15:42 Ur Squamous Epith Cells 0-5 /hpf (0-5) 07/16/25 15:42 Amorphous Sediment Not Reportable 07/16/25 15:42 Urine Bacteria None seen /hpf (NONE) 07/16/25 15:42 Hyaline Casts 0.40 /lpf 07/16/25 15:42 Salicylates 0.5 mg/dL (3-10) L 07/16/25 14:57 Urine Opiates Screen Negative ng/mL (Negative) 07/16/25 15:42 Acetaminophen < 5.0 ug/mL (10-30) L 07/16/25 14:57 Ur Barbiturates Screen Negative ng/mL (Negative) 07/16/25 15:42 Ur Phencyclidine Scrn Negative ng/mL (Negative) 07/16/25 15:42 Ur Amphetamines Screen Negative ng/mL (Negative) 07/16/25 15:42 U Benzodiazepines Scrn Negative ng/mL (Negative) 07/16/25 15:42 Urine Cocaine Screen Negative ng/mL (Negative) 07/16/25 15:42 U Marijuana (THC) Screen Negative ng/mL (Negative) 07/16/25 15:42 Ethyl Alcohol < 10 mg/dL (0-10) 07/16/25 14:57 Influenza A (PCR) Negative (Negative) 07/17/25 02:58 Influenza Type B (PCR) Negative (Negative) 07/17/25 02:58 RSV (PCR) Negative (Negative) 07/17/25 02:58 SARS-CoV-2 (PCR) Negative (Negative) 07/17/25 02:58 No radiology studies performed this visit Discharge Plan Discharge Patient Disposition: Xfer Psychiatric Hosp Clinical Impression: Paranoia, Acute psychosis, Depression, Cognitive dysfunction Condition: Stable Referrals: Sharyn Guerrero DO [Primary Care Provider, BALL MACHINE OPERATOR] Print Language: Egyptian Coding Level of Care Code ED Financial Aid Officer for Chg Fwd Documented by User: Bill Arana DO 07/20/25 10:18 HPI - Psych General: Chief Complaint: Psychiatric Symptoms Stated Complaint: 96 Time Seen by Provider: 07/16/25 14:19 Related Data Home Medications ?Medication ?Instructions ?Recorded ?Confirmed buspirone 5 mg tablet 5 mg PO TID 10/09/24 07/17/25 levothyroxine 25 mcg capsule 25 mcg PO DAILY 10/09/24 07/17/25 quetiapine 200 mg tablet,extended 200 mg PO DAILY 10/09/24 07/17/25 release 24 hr (Seroquel XR) Allergies Allergy/AdvReac Type Severity Reaction Status Date / Time No Known Allergies Allergy Verified 10/09/24 08:48 PFSH ED PFSH: Medical History (Updated 07/16/25 @ 16:51 by Bill Arana DO) Psychiatric care Colon cancer Stage II Hypothyroidism Hypertension Surgical History H/O right hemicolectomy (~07/2019) History of amputation of finger of left hand 2016 History of colonoscopy with polypectomy (08/10/20) Diverticulosis, repeat in 5 years Family History Mother Stroke Other CAD (coronary artery disease) Cancer Diabetes Hypertension Denies family history of Clotting disorder Dementia Hyperlipidemia Psychiatric illness Chronic kidney disease (CKD) Suicide Anesthesia complication Bleeding disorder Lung disease Social History Smoking and tobacco/nicotine status: never used tobacco/nicotine Alcohol intake: current Alcohol intake frequency: holidays/special occasions only Course Vital Signs: Vital signs: Vital Signs Temperature 98.1 F 07/16/25 14:10 Pulse Rate 93 07/17/25 16:00 Respiratory Rate 17 07/17/25 16:00 Blood Pressure 166/66 07/17/25 16:00 Pulse Oximetry 97 07/17/25 16:00 Oxygen Delivery Me thod Room Air 07/17/25 06:50 MDM - Psych Medical Decision Making Patient accepted to [facility] in [place]. Awaiting transport. No acute complaints at this time. Assessment and plan: Paranoia Psychosis ?BuSpar ordered. ? Planning for transpot Patient seen on 07/16/2025 patient cleared medically and had made arrangements discussed with receiving physician at outside facility at [facility]. Medically cleared. I did not see the patient on 1016 Dr. Solares started a second note. Lab Data 07/16/25 14:57 07/16/25 14:57 Radiology Impressions Chest X-Ray 07/16/25 16:59 IMPRESSION: 1. No acute chest pathology identified. 2. Fine reticular interstitial thickening, likely chronic, without focal consolidation. Appearance most consistent with chronic fibrotic interstitial change, age-related/nonspecific. Recommend correlation with clinical history; pulmonary function tests if clinically indicated. 3. Hyperinflated lungs with air trapping suggesting obstructive airways disease. Clinical correlation recommended for further evaluation. 4. Moderate age-appropriate degenerative spinal changes, with other chronic/non-acute findings as described above. COMMENTS: Qualitative demineralization of bones (osteopenia) limiting evaluation for nondisplaced fractures. Laboratory Results WBC 6.28 10^3/uL (3.29-11.43) 07/16/25 14:57 RBC 3.81 10^6/uL (3.85-5.65) L 07/16/25 14:57 Hgb 11.00 g/dL (11.27-16.99) L 07/16/25 14:57 Hct 33.7 % (36-47) L 07/16/25 14:57 MCV 88.5 fl (85-98) 07/16/25 14:57 MCH 28.9 pg (27-33) 07/16/25 14:57 MCHC 32.6 g/dL (30-55) 07/16/25 14:57 RDW 14.4 % (12.1-15.1) 07/16/25 14:57 Plt Count 316 10^3/cmm (157-399) 07/16/25 14:57 MPV 10.0 fL (7.4-10.4) 07/16/25 14:57 Neut % (Auto) 77.3 % 07/16/25 14:57 Lymph % (Auto) 14.6 % 07/16/25 14:57 Sabine % (Auto) 5.9 % 07/16/25 14:57 Eos % (Auto) 1.3 % 07/16/25 14:57 Baso % (Auto) 0.6 % 07/16/25 14:57 Neut # (Auto) 4.85 10^3/uL (1.8-7.7) 07/16/25 14:57 Lymph # (Auto) 0.9 10^3/uL (0.8-4.8) 07/16/25 14:57 Sabine # (Auto) 0.4 10^3/uL (0.2-0.9) 07/16/25 14:57 Eos # (Auto) 0.1 10^3/uL (0.0-0.8) 07/16/25 14:57 Baso # (Auto) 0.0 10^3/uL (0.0-0.1) 07/16/25 14:57 Nucleated RBC % (auto) 0 % 07/16/25 14:57 Nucleated RBCs # 0.0 /100WBC 07/16/25 14:57 Sodium 139 mmol/L (136-145) 07/16/25 14:57 Potassium 4.1 mmol/L (3.5-5.1) 07/16/25 14:57 Chloride 101 mmol/L (98-107) 07/16/25 14:57 Carbon Dioxide 23 mmol/L (22-29) 07/16/25 14:57 Anion Gap 19.1 (5-19) H 07/16/25 14:57 BUN 15 mg/dL (8-23) 07/16/25 14:57 Creatinine 0.6 mg/dL (0.5-0.9) 07/16/25 14:57 GFR Calculation Not Reportable 07/16/25 14:57 Glucose 100 mg/dL (65-115) 07/16/25 14:57 Calculated Osmolality 289 mOsm/kg (285-295) 07/16/25 14:57 Calcium 9.1 mg/dL (8.5-10.5) 07/16/25 14:57 Total Bilirubin 0.4 mg/dL (0.15-1.2) 07/16/25 14:57 AST 20 U/L (0-32) 07/16/25 14:57 ALT 11 U/L (0-33) 07/16/25 14:57 Alkaline Phosphatase 93 U/L (35-105) 07/16/25 14:57 Total Protein 7.0 g/dL (6.6-8.7) 07/16/25 14:57 Albumin 4.1 g/dL (3.5-5.2) 07/16/25 14:57 Globulin 2.9 g/dL (1.3-4.6) 07/16/25 14:57 TSH 2.62 uIU/mL (0.27-4.20) 07/16/25 14:57 Urine Color Yellow (Yellow) 07/16/25 15:42 Urine Appearance Clear (CLEAR) 07/16/25 15:42 Urine pH 7.5 (5-7) 07/16/25 15:42 Ur Specific Gepp 1.010 (1.005-1.030) 07/16/25 15:42 Urine Protein Negative (Negative) 07/16/25 15:42 Urine Glucose (UA) Negative (Normal) 07/16/25 15:42 Urine Ketones Negative (Negative) 07/16/25 15:42 Urine Blood Negative (Negative) 07/16/25 15:42 Urine Nitrate Negative (Negative) 07/16/25 15:42 Urine Bilirubin Negative (Negative) 07/16/25 15:42 Urine Urobilinogen 0.2 mg/dL (Negative) 07/16/25 15:42 Ur Leukocyte Esterase Trace (Negative) A 07/16/25 15:42 Urine RBC 0-2 /hpf (0-2) 07/16/25 15:42 Urine WBC 0-5 /hpf (0-5) 07/16/25 15:42 Ur Squamous Epith Cells 0-5 /hpf (0-5) 07/16/25 15:42 Amorphous Sediment Not Reportable 07/16/25 15:42 Urine Bacteria None seen /hpf (NONE) 07/16/25 15:42 Hyaline Casts 0.40 /lpf 07/16/25 15:42 Salicylates 0.5 mg/dL (3-10) L 07/16/25 14:57 Urine Opiates Screen Negative ng/mL (Negative) 07/16/25 15:42 Acetaminophen < 5.0 ug/mL (10-30) L 07/16/25 14:57 Ur Barbiturates Screen Negative ng/mL (Negative) 07/16/25 15:42 Ur Phencyclidine Scrn Negative ng/mL (Negative) 07/16/25 15:42 Ur Amphetamines Screen Negative ng/mL (Negative) 07/16/25 15:42 U Benzodiazepines Scrn Negative ng/mL (Negative) 07/16/25 15:42 Urine Cocaine Screen Negative ng/mL (Negative) 07/16/25 15:42 U Marijuana (THC) Screen Negative ng/mL (Negative) 07/16/25 15:42 Ethyl Alcohol < 10 mg/dL (0-10) 07/16/25 14:57 Influenza A (PCR) Negative (Negative) 07/17/25 02:58 Influenza Type B (PCR) Negative (Negative) 07/17/25 02:58 RSV (PCR) Negative (Negative) 07/17/25 02:58 SARS-CoV-2 (PCR) Negative (Negative) 07/17/25 02:58 Discharge Plan Discharge Patient Disposition: Xfer Psychiatric Hosp Clinical Impression: Paranoia, Acute psychosis, Depression, Cognitive dysfunction Condition: Stable Referrals: Sharyn Guerrero DO [Primary Care Provider, BALL MACHINE OPERATOR] Print Language: Egyptian Coding Level of Care Code ED Financial Aid Officer for Juni Dumont
[2025-07-17 16:00] VITALS: BP 166/66; PULSE 93; RESP 17; O2SAT 97
== END 2025-07-17 16:51 ==
PROVIDERS: Emergency Provider Family Medicine; PCP Family Medicine
DX: F22 Delusional disorders (principal); F23 Brief psychotic disorder; F32.A Depression, unspecified; R41.89 Other symptoms and signs involving cognitive functions and awareness; I10 Essential (primary) hypertension; Z85.038 Personal history of other malignant neoplasm of large intestine
CPT/HCPCS: 36415; 71045; 80053; 80306; 80307; 81001; 84443; 85025; 87637; 93005; 99285; J9999